=== PATIENT | male | born 1995 | race Caucasian/White ===

== ENCOUNTER 2019-08-19 15:56 | Emergency (ER) | payer SELFPAY ==
--- NOTE | 2019-08-19 16:00 | XR_ITS ---
WS: [id number] XR foot RT min 3V* [id number] REASON FOR EXAM: injury FINDINGS: This study shows a fracture of the proximal second metatarsal. Slight displacement is seen. The calcaneus was normal. The remaining foot appear to be normal. XR/XR foot RT min 3V* [id number] IMPRESSION: Fracture of the proximal second metatarsal
[2019-08-19 16:13] VITALS: BP 142/82; PULSE 79; RESP 18; TEMP 36.7; O2SAT 98; BMI 27.8
--- NOTE | 2019-08-19 16:39 | ED_ITS ---
HPI - Extremity Problem General: Chief complaint: Extremity Injury, Lower Stated complaint: R FOOT INJURY Time Seen by Provider: 08/19/19 16:38 Source: patient Mode of arrival: ambulatory Limitations: no limitations History of Present Illness: HPI Narrative: Patient comes in today with complaints of soreness and swelling to the right foot. Patient does not recall an injury. Patient reports that it has been bothering him for the last 2 days. Patient appears well. Patient appears in no acute distress. MD Complaint: extremity pain Review of Systems General: Reports: 10 or more systems reviewed and unremarkable except in HPI and below Musc: Reports: extremity pain (right foot) [facility] ED PFSH: Social History Smoking and tobacco status: never smoked Physical Exam Const: COMMON NORMALS: no acute distress and patient oriented x3 GENERAL APPEARANCE: cooperative HENMT: COMMON NORMALS: normocephalic, TM's normal bilaterally and Normal external nose present HEAD & SCALP: normal to inspection and normocephalic NOSE: Normal external nose present TYMPANIC MEMBRANE: TM's normal bilaterally MOUTH: Normal oral and palatal mucosa present THROAT: posterior oropharynx normal Eye: GENERAL EYE: appearance normal, both eyes and all related structures Neck/C-Spine: COMMON NORMALS: full ROM Lymph: LYMPHATIC: no lymphadenopathy noted Chest: COMMONS NORMALS: normal inspection of the chest Resp: COMMON NORMALS: normal respiratory effort EFFORT & INSPECTION: Yes able to speak in complete sentences Cardio: COMMON NORMALS: regular rate and regular rhythm RATE: regular rate RHYTHM: regular rhythm GI: COMMON NORMALS: non-tender : COMMON NORMALS: Yes no CVA tenderness BLADDER/KIDNEY EXAM: Yes no CVA tenderness Back/Pelvis: COMMON NORMALS: no CVA tenderness and thoracic and lumbar spine normal to inspection Extremity: NARRATIVE EXTREMITY EXAM: No significant swelling or bruising is noted to the right foot. Patient does have some tenderness to the midfoot. Distal pulses and cap refill are intact. Neuro: COMMON NORMALS: patient oriented x3 and moves all extremities Psych: COMMON NORMALS: mental status grossly normal and cooperative Skin: COMMON NORMALS: no rashes or lesions noted GENERAL SKIN EXAM: no rash es or lesions noted Course Vital Signs: Vital signs: Vital Signs Temperature 98.1 F 08/19/19 16:13 Pulse Rate 79 08/19/19 16:44 Respiratory Rate 16 08/19/19 16:44 Blood Pressure 139/78 08/19/19 16:44 Pulse Oximetry 98 08/19/19 16:44 MDM - Extremity (Nontraumatic) MDM Narrative: Medical decision making narrative: Patient comes in with injury to the mid right foot. Patient does not recall the injury but noticed over the last 2 days that it seems like is been more tender and increased swelling is noted to the foot. Vital signs are normal. Exam notes mild swelling and tenderness to the mid right foot. Capillary refill is normal. Differential diagnosis includes sprain, fracture, contusion. X-ray of the right foot noted a nondisplaced fracture of the base of the second metatarsal. Reviewed exam with patient recommended treatment with elastic bandage and orthopedic shoe for support. Patient reported understanding and agreed to plan. Discharge Plan Discharge Patient Disposition: Home, Self-Care Clinical Impression: Fracture of metatarsal bone of right foot Qualifiers: Encounter type: initial encounter Metatarsal bone: second Fracture type: closed Fracture alignment: nondisplaced Qualified Code(s): S92.324A - Nondisplaced fracture of second metatarsal bone, right foot, initial encounter for closed fracture Condition: Stable Prescriptions: No Action No Known Home Medications RF: 0 Discharge Orders: Discharge Order (Routine); Ordered 08/19/19 Ordered By: Duane Ramirez Referrals: Jennifer Mcgovern FNP-C [Family Provider] - Discharge Diet: Usual diet Discharge Activity: Increase activity as tolerated Patient Instructions: Foot Fracture in Adults (ED) Activity Restrictions/Additional Instructions: Activity as tolerated. Tylenol and ibuprofen for pain. Wear elastic support for swelling of the foot. Wear supportive shoe or orthopedic shoe until cleared by orthopedic surgeon. Follow-up with primary care in 1 week. Return to the ER for increased swelling, redness, and high fever. Coding Level of Care Code ED Elementary Substitute Teacher for Ayesha Fwd Exam Comprehensive
[2019-08-19 16:44] VITALS: BP 139/78; PULSE 79; RESP 16; O2SAT 98
--- NOTE | 2019-08-20 10:46 | DCPLANNER ---
manager target had message to schedule a follow up appointment for patient with ortho. manager target called the ortho clinic, spoke with Concepción, gave clinic patients information. manager target was told that patients information would be printed and reviewed. Clinic will call manager of case and patient with appointment information.
--- NOTE | 2019-09-01 07:58 | DCPLANNER ---
Patient had a follow up appointment scheduled for 08.23.19 with ortho. Patient did attend the appointment.
== END 2019-08-19 17:00 | disposition home or self-care (01) ==
PROVIDERS: Emergency Provider Nurse Practitioner Family; Family Provider Nurse Practitioner Family
DX: S92.324A Nondisplaced fracture of second metatarsal bone, right foot, initial encounter for closed fracture (principal); X58.XXXA Exposure to other specified factors, initial encounter
CPT/HCPCS: 12345; 73630; 99282; 99283

== ENCOUNTER → 2019-08-23 13:38 | Outpatient (BNVA) | payer SELFPAY | PROVIDERS: Family Provider Nurse Practitioner Family; Referring Provider Nurse Practitioner Family; Visit Provider Podiatrist Foot & Ankle Surgery | DX: S92.324A Nondisplaced fracture of second metatarsal bone, right foot, initial encounter for closed fracture (principal); X58.XXXA Exposure to other specified factors, initial encounter | CPT/HCPCS: 73630 ==

== ENCOUNTER 2019-12-17 20:59 | Inpatient (IN) | payer SELFPAY ==
[2019-12-17 21:12] VITALS: RESP 18; TEMP 36.3; BMI 27.8
[2019-12-17 21:20] VITALS: BP 151/107; PULSE 124; RESP 16; TEMP 36.3; O2SAT 98
--- NOTE | 2019-12-17 21:27 | W.ED.PSYCH ---
HPI - Psych General: Chief Complaint: Psychiatric Symptoms Stated Complaint: mental eval Time Seen by Provider: 12/17/19 21:17 Source: patient Mode of arrival: ambulatory Limitations: no limitations History of Present Illness: HPI Narrative: 24-year-old male he states that he has been having increasing auditory hallucinations since November. Patient states that he is now became suicidal has had thoughts of killing himself. Patient's mother is here and states she is try to get him follow-up with [facility] but he refuses. Patient denies any worsening or improving factors. Associated symptoms: Reports auditory hallucinations and suicidal ideation Review of Systems Const: Denies: fever(s), chills, body aches or change in appetite Eyes: Denies: blurry vision or eye discomfort ENMT: Denies: throat pain or dental pain Card: Denies: chest pain Resp: Denies: dyspnea GI: Denies: abdominal pain, nausea, vomiting or diarrhea : Denies: dysuria Musc: Denies: neck pain or back pain Skin/Breast: Denies: rash Neuro: Denies: headache(s) Psych: Reports: auditory hallucinations and suicidal ideation Grady/Lymph: Denies: easy bruising All/Imm: Denies: urticaria PFSH ED PFSH: Family History Denies family history of Diabetes CAD (coronary artery disease) Hypertension Stroke Social History Smoking and tobacco status: never smoked Alcohol intake: never Current occupational status: employed Current occupation: [employer] Current gender identity: Male Physical Exam Const: COMMON NORMALS: no acute distress, patient oriented x3 and healthy appearing HENMT: COMMON NORMALS: normocephalic and atraumatic HEAD & SCALP: normocephalic and atraumatic Eye: COMMON NORMALS: Equal, round and reactive pupils present and EOMs intact bilaterally PUPIL: Yes Equal, round and reactive pupils present Neck/C-Spine: COMMON NORMALS: full ROM and supple Chest: COMMONS NORMALS: normal inspection of the chest and normal palpation of entire chest wall Resp: COMMON NORMALS: normal respiratory effort, No retractions, No use of accessory muscles and clear to auscultation bilaterally AUSCULTATION: clear to auscultation bilaterally Cardio: COMMON NORMALS: regular rate, regular rhythm and No murmurs present (Cardio) RATE: regular rate RHYTHM: regular rhythm GI: COMMON NORMALS: Normal to inspection, nondistended, normoactive bowel sounds present, Soft to palpation, non-tender and no masses PALPATION: Yes Soft to palpation Extremity: COMMON NORMALS: normal to inspection and full ROM Neuro: COMMON NORMALS: patient oriented x3, moves all extremities and no focal motor deficits Psych: COMMON NORMALS: mental status grossly normal and cooperative THOUGHT PROCESS: Loose association thought process present THOUGHT CONTENT: Yes Suicidality present and Yes Hallucination(s) present Skin: COMMON NORMALS: no rashes or lesions noted and no wounds GENERAL SKIN EXAM: no rashes or lesions noted MDM - Psych MDM Narrative: Medical decision making narrative: Patient presents here with ideations along with auditory hallucinations. Patient was placed under 96-hour hold by me. He is well-appearing here and blood work here is all normal. I spoke to Dr. Mcgovern and will admit to the psychiatric unit. Lab Data: Labs: Lab Results 12/17/19 12/17/19 Range/Units 21:50 22:25 WBC 8.8 (4.0-10.0) 10^3/ uL RBC 5.65 H (4.1-5.3) 10^6/u L Hgb 16.2 (11.7-16.6) g/dL Hct 48.6 (42.0-52.0) % MCV 86.0 (80-94) fL MCH 28.7 (28.0-34.0) pg MCHC 33.3 (30.0-36.0) g/dL RDW 12.4 (12.1-15.1) % Plt Count 236 (130-400) 10^3/c mm MPV 10.7 H (7.4-10.4) fL Neut % (Auto) 63.2 % Lymph % (Auto) 27.2 % Callaway % (Auto) 7.1 % Eos % (Auto) 1.9 % Baso % (Auto) 0.3 % Neut # (Auto) 5.55 (1.8-7.7) 10^3/u L Lymph # (Auto) 2.4 (0.8-4.8) 10^3/u L Callaway # (Auto) 0.6 (0.2-0.9) 10^3/u L Eos # (Auto) 0.2 (0.0-0.8) 10^3/u L Baso # (Auto) 0.0 (0.0-0.1) 10^3/u L Nucleated RBC % (a uto) 0 % Nucleated RBCs # 0.0 /100WBC Urine Opiates Scre en Negative (Negative) ng/mL Ur Barbiturates Sc reen Negative (Negative) ng/mL Ur Phencyclidine S crn Negative (Negative) ng/mL Ur Amphetamines Sc reen Negative (Negative) ng/mL U Benzodiazepines Scrn Negative (Negative) ng/mL Urine Cocaine Scre en Negative (Negative) ng/mL U Marijuana (THC) Screen Positive H (Negative) ng/mL Discharge Plan Discharge Patient Disposition: Admitted As Inpatient Clinical Impression: Suicidal ideation, Hallucinations Condition: Stable Coding Level of Care Code ED Learning And Development Consultant for Ayesha Nj Exam Comprehensive
[2019-12-17] MEDS: LORazepam 2 mg Tablet PO (21:54)
[2019-12-17 22:11] LABS: Amphetamines Screen Urine Negative (Negative); Barbiturates Screen Urine Negative (Negative); Benzodiazepines Screen Urine Negative (Negative); Cocaine Screen Urine Negative (Negative); Opiate Screen Urine Negative (Negative); PCP Screen Urine Negative (Negative); THC Screen Urine Positive (Negative)
[2019-12-17 22:30] LABS: Basophils % 0.3 %; Eosinophils # 0.2 10^3/uL (0.0-0.8); Eosinophils % 1.9 %; Hematocrit 48.6 % (42.0-52.0); Hemoglobin 16.2 g/dL (11.7-16.6); Lymphocytes # 2.4 10^3/uL (0.8-4.8); Lymphocytes % 27.2 %; Mean Corpuscular HGB Conc 33.3 g/dL (30.0-36.0); Mean Corpuscular Hemoglobin 28.7 pg (28.0-34.0); Mean Platelet Volume 10.7 fL (7.4-10.4); Monocytes # 0.6 10^3/uL (0.2-0.9); Monocytes % 7.1 %; Neutrophils # 5.55 10^3/uL (1.8-7.7); Neutrophils % 63.2 %; Nucleated Red Blood Cells % 0 %; Platelet Count 236 10^3/cmm (130-400); Red Blood Count 5.65 10^6/uL (4.1-5.3); Red Cell Distribution Width 12.4 % (12.1-15.1); White Blood Count 8.8 10^3/uL (4.0-10.0)
[2019-12-17 22:50] LABS: Alanine Aminotransferase 11 U/L (0-41); Albumin Level 4.9 g/dL (3.5-5.2); Alkaline Phosphatase 56 IU/L (40-130); Anion Gap 15.7 (5-19); Aspartate Amino Transferase 18 U/L (0-40); Blood Urea Nitrogen 7 mg/dL (6-20); Calcium 9.7 mg/dL (8.5-10.5); Carbon Dioxide 27 mmol/L (22-29); Chloride 99 mmol/L (98-107); Globulin 2.6 g/dL (1.3-4.6); Glomerular Filtration Rate 103.7 mL/min (90-130); Glucose 129 mg/dL (65-115); Osmolality Calculated 286 mOsm/kg (285-295); Potassium 3.7 mmol/L (3.5-5.1); Sodium 138 mmol/L (136-145); Total Bilirubin 0.7 mg/dL (0.15-1.2); Total Protein 7.5 g/dL (6.6-8.7)
[2019-12-17 22:55] LABS: Acetaminophen < 5.0 ug/mL (10-30); Alcohol Level < 10 mg/dL (0-10); Salicylate < 0.3 mg/dL (3-10)
--- NOTE | 2019-12-17 23:09 | PC.NURSE ---
pt report called to NPU RN in SBAR format.
[2019-12-17 23:31] VITALS: PULSE 92; RESP 18; O2SAT 98
--- NOTE | 2019-12-18 01:10 | PC.NURSE ---
Addendum entered by Ruperto Tucker RN 12/18/19 01:12: no totery available at this time. Original Note: 96 hour hold will need notarized tomorrow 12/18/19.
--- NOTE | 2019-12-18 04:32 | PC.NURSE ---
Patient came to the unit calm and cooperative. He is sleeping in his room
[2019-12-18 06:00] VITALS: BP 116/76; PULSE 76; RESP 16; TEMP 36.6; O2SAT 99
--- NOTE | 2019-12-18 09:06 | PM.NHP ---
Providers/Chief Complaint Admitting Physician: Davin Mcgovern MD Chief Complaint: mental eval [facility] NPU History of Present Illness Ivan Dover is a 24 year old male Ivan Dover is a 24-year-old male with no prior psychiatric history who was brought to the emergency room with the complaint described above. He says that he occasionally has suicidal thoughts. However he has no intent or plan. He does not seem to be particularly depressed. He spends his days playing his guitar and writing music. He feels that he is pretty good at playing guitar and writing music and sometimes will even play his guitar for a friend. He denies being depressed. However he does report the presence of auditory hallucinations. He hears more than 1 voice. There is no command nature to the hallucinations. He cannot identify any voices. He cannot tell whether they are coming from inside of his head or outside of his head. He does not find them typically troubling and is not too concerned about them. On interview today, he is not too concerned about much of anything. He admits that he smokes marijuana and that it helps relax him. He is guarded around how much he smokes. He claims to not really smoke very much. He says that he last went a whole day without smoking a few days ago. Other than getting rid of the auditory hallucinations, he has no other goals. Appetite and sleep are good by his report Laboratory Tests 12/17/19 12/17/19 21:50 22:25 Urine Opiates Screen Negative Ur Barbiturates Screen Negative Ur Phencyclidine Scrn Negative Ur Amphetamines Screen Negative U Benzodiazepines Scrn Negative Urine Cocaine Screen Negative U Marijuana (THC) Screen Positive H Ethyl Alcohol < 10 Past psychiatric history: He has no history of inpatient psychiatric treatment, outpatient psychiatric treatment. He did see a counselor for a while but does not really want to talk about that. Family psychiatric history: Patient states that there is nobody else in the family that has been treated for mental health problems. Nobody in the family has experienced auditory hallucinations. Nobody else in the family has an alcohol or substance abuse problem. Social history: The patient currently lives with his mother. His mother is employed full-time. The patient is unemployed. The patient has no intention of finding employment. I am not really very good at that kind of thing. He is a high school graduate. He was attending the local college and planning on a career in game design. He stopped attending school 4 years ago. He has no plans to return. He says that he has friends locally but does not name any of them. He describes no activities in which he engages with those friends. He has 2 brothers and a sister. He says he does not see them much. Medical history Records indicate that he is in good medical health. He is on no medications. Laboratory evaluation show that he has a mild elevation in RBC and his nonfasting blood sugar was 129. His urine drug screen was positive for marijuana. Otherwise the UDS was negative. Review of Systems Narrative: Review of Systems Constitutional: Complains of: Fatigue Eyes: Complains of: No eye symptoms ENT/Mouth: Complains of: No ENTM symptoms Cardiovascular: Complains of: No cardiac symptoms Respiratory: Complains of: No respiratory symptoms GI: Complains of: No GI symptoms Neuro: Complains of: No neuro symptoms Musculoskeletal: Complains of: No musculoskeletal symptoms Skin: Complains of: No skin symptoms Hematologic/Lymphatic: Complains of: No hematologic/lymphatic symptoms Endocrine: Complains of: No endocrine symptoms : Complains of: No symptoms Psych: He denied complaints of: Depression, Suicide ideation Meds NPU Home Medications Medication Instructions Recorded Confirmed Last Taken Type No Known Home Medications 08/19/19 12/17/19 Unknown History Allergies Allergy/AdvReac Type Severity Reaction Status Date / Time No Known Allergies Allergy Verified 12/17/19 21:25 PFSH NPU PFSH: Family History Denies family history of Diabetes CAD (coronary artery disease) Hypertension Stroke Social History Smoking and tobacco status: never smoked Alcohol intake: never Current occupational status: employed Current occupation: [employer] Current gender identity: Male Mental Status Exam MSE Comments: Mental Status Exam: The patient is a lethargic man appearing approximately his stated age. He sits in a slumped posture. Eye contact is good. Speech is so soft as to barely be able to be heard. He is in no apparent physical or emotional distress. He is believed to be a reliable informant though he does show some guarding around discussion of his use of marijuana. Still, he does not provide supplemental information to any of the questions asked. He simply answers them. Appearance: hygiene is fair; no gross neurological deficits., gait is unremarkable; AIMS=0 Speech: Speech is of normal rate and rhythm and easily understood. Thought processes: Thought processes are concrete. Judgment is adequate for safety. Associations: intact Psychotic processes: There is no indication of guarding or paranoia. There is no attention to the internal stimuli. Auditory are reported historically but patient describes them as being absent during the interview and visual hallucinations are denied. Judgment: Insight is fair. Problem solving skills are adequate for safety. Orientation: The patient is oriented to person, place time and situation. Memory: no deficits noted in immediate, intermediate, or remote spheres. Attention: The patient is alert and interpersonally engaged. Language: Verbalizations are coherent. Fund of knowledge: Fund of knowledge is adequate. Affect/Mood: Affect is lethargic with a euthymic mood. pt denies suicidal ideation Affective range is constricted. Psychosis: perception is difficult to assess as the patient does not provide much information and his motivation to participate in the interview seems to be low. There is no attention to internal stimuli though he reports auditory hallucinations. He denied the presence of visual hallucinations. He does not appear to be significantly bothered by these auditory hallucinations and his reality testing appears to remain intact. He is able to acknowledge that these are hallucinations that they are not real. Vitals/I&O/Wt Last Vital Signs Temp 97.8 F 12/18/19 06:00 Pulse 76 12/18/19 06:00 Resp 16 12/18/19 06:00 BP 116/76 12/18/19 06:00 Pulse Ox 99 12/18/19 06:00 Weight last 48 hrs Weight 90.718 kg Data NPU : 12/17/19 22:25 12/17/19 22:25 A&P Assessment and plan (1) Marijuana abuse: Status: Acute (2) Hallucinations: Status: Acute Additional A&P Information Assessment: Ivan Dover is a 24-year-old man who appears to smoke marijuana on a regular basis and is experiencing auditory hallucinations. There is no family history of psychosis and no familial risk factors for the development of schizophrenia.. He is medically stable. His reality testing remains intact. He is guarded with regard to the amount and frequency of marijuana use. 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 The patient did not seem to be interested in ceasing his marijuana use. Due to the psychiatric conditions and treatment listed in the Assessment and Plan - the patient requires continued hospitalization. Will provide a safe and therapeutic environment for patient.. Will continue inpatient treatment to allow for medication adjustment and monitoring. Will continue q15 min safety checks. 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 The patient did not seem to be interested in ceasing his marijuana use. The first intervention will be the initiation of risperidone 0.5 mg daily as an intervention to try and reduce and eliminate the presence of the auditory hallucination and absence of his willingness to cease marijuana use. Monitor patient's mood, sleep, appetite, and behavior closely. Encourage patient to participate in individual and group therapeutic sessions on the tim. Estimated length of stay 3 days The expected benefits and potential side effects of patient's psychiatric medications were discussed with the patient. The patient understands and consents to treatment. CRITERIA FOR DISCHARGE: stable on medications and no longer an imminent threat to self or others Involuntary Hold Information 96 Hour Hold: 96 Hour Involuntary Admission: Yes Attestations NPU Medical Necessity Statement*: Patient will remain in the hospital 2 to 3 days to assess medication efficacy and tolerance. Coding Level of Care Code Acute Office Runner for Ayesha Nj Diagnoses Marijuana abuse F12.10 Hallucinations R44.3
[2019-12-18 13:42] VITALS: BP 134/79; PULSE 92; RESP 18; TEMP 36.8
[2019-12-18 22:00] VITALS: BP 142/86; PULSE 86; RESP 16; TEMP 36.7; O2SAT 99
[2019-12-19 06:00] VITALS: BP 117/71; PULSE 70; RESP 16; TEMP 36.8; O2SAT 99
[2019-12-19 13:10] VITALS: BP 114/72; PULSE 90; RESP 16; TEMP 36.9; O2SAT 98
--- NOTE | 2019-12-19 17:12 | P.PN_ITS ---
Subjective NPU Subjective: Interval history: The patient is rather nonchalant today. He frankly acknowledges suicidal ideation for a very long time. He says he has attempted to hang himself several times and has cut on himself. I have spoken to his mother, who is very supportive. She has her own chronic illness and her mother is said to be a schizophrenic. The patient's problems seems to have become exacerbated when his girlfriend left him. Medications: Reviewed: Yes Medication Review Details: Current Medications Acetaminophen (Tylenol) 650 mg PO Q4H PRN PRN Reason: MILD PAIN Benztropine Mesylate (Cogentin) 1 mg PO BID PRN PRN Reason: Mild Extrapyramidal symptoms Camphor/Menthol/Phenol (Blistex) 1 applic TOPICAL Q1H PRN PRN Reason: DRYNESS Diphenhydramine HCl (Benadryl) 50 mg IM ONCE PRN PRN Reason: Severe Extrapyramidal Symptoms Diphenhydramine HCl (Benadryl) 50 mg IM Q4H PRN PRN Reason: Severe Aggression Haloperidol (Haldol) 5 mg PO Q4H PRN PRN Reason: AGITATION Haloperidol Lactate (Haldol Inj) 5 mg IM Q4H PRN PRN Reason: Severe Aggression Hydroxyzine Pamoate (Vistaril) 50 mg PO Q6H PRN PRN Reason: ANXIETY Loperamide HCl (Imodium Capsule) 2 mg PO Q6H PRN PRN Reason: DIARRHEA Lorazepam (Ativan) 2 mg IM Q4H PRN PRN Reason: Severe Aggression Nicotine (Nicoderm 21 Mg Patch) 1 patch TRANSDERMA DAILY PRN PRN Reason: NICOTINE WITHDRAWAL Nicotine Polacrilex (Nicorette) 2 mg BUCCAL Q2H PRN PRN Reason: NICOTINE WITHDRAWAL Olanzapine (Zyprexa Zydis) 5 mg PO Q4H PRN PRN Reason: Agitation/Psychosis Ondansetron HCl (Zofran) 4 mg PO Q6H PRN PRN Reason: NAUSEA AND VOMITING Risperidone (Risperdal) 2 mg PO DAILY KATI Trazodone HCl (Desyrel) 50 mg PO BEDTIME PRN PRN Reason: SLEEP Mental Status Exam MSE Comments: This is a 24-year-old male who presents at his stated age. He is clean, neat and has brassy dyed hair. Mood is sad and affect is quite flat. Thought processes are integrated and free of any racing, blocking or looseness of association. Speech is very soft and I have to ask him to repeat himself. Nonetheless there is no dysarthria, aprosody or pressure. There is only one indication of psychosis, namely his auditory hallucinations. He's pretty cagey about who they are or what they say. He acknowledges suicidal ideation: I've always been suicidal, he states. Cognitive functions appear to be intact but insight and judgment may be fragile indeed. Vitals/I&O/Wt Last Vital Signs Temp 98.4 F 12/19/19 13:10 Pulse 90 12/19/19 13:10 Resp 16 12/19/19 13:10 BP 114/72 12/19/19 13:10 Pulse Ox 98 12/19/19 13:10 Weight last 48 hrs Weight 199 lb 2 oz Weight 200 lb Data NPU : 12/17/19 22:25 12/17/19 22:25 A&P Assessment and plan (1) Marijuana abuse: This patient needs referral to recovery program as well as Behavioral Health Care Status: Chronic (2) Suicidal ideation: This is of years duration. A lot of support will be required and his depression should be treated. I'll discuss this with the patient tomorrow Status: Chronic (3) Major depressive disorder with psychotic features: Pharmacotherapy and milieu will be involved with aftercare at [facility]. Status: Acute Involuntary Hold Information 96 Hour Hold: 96 Hour Involuntary Admission: Yes Attestations NPU Medical Necessity Statement*: I anticipate 7-10 midnights additional hospitalization. Time Spent in Patient Care: Greater than 35 minutes (>than 50% of time spent in counselling and/or direct pt care on unit) . 50 minutes including consultation with the patient's mother, with his permission. Coding Level of Care Code Acute Leak Gang Supervisor for Ayesha Fwlee ann Diagnoses Marijuana abuse F12.10 Suicidal ideation R45.851 Major depressive disorder with psychotic features F32.3
[2019-12-19] MEDS: trazodone 50 mg Tablet PO (20:59)
[2019-12-19] MEDS: hyDROXYzine 25 mg Capsule 50 MG PO (20:59)
[2019-12-19 21:16] VITALS: BP 148/94; PULSE 96; RESP 16; TEMP 36.6; O2SAT 98
[2019-12-20 06:00] VITALS: BP 98/62; PULSE 63; RESP 16; TEMP 36.4; O2SAT 96
[2019-12-20] MEDS: risperiDONE 1 mg Tablet 2 MG PO (08:10)
--- NOTE | 2019-12-20 13:35 | NPU.GN ---
Neither Ward or Ivan were present during the group therapy session.
[2019-12-20 14:00] VITALS: BP 112/74; PULSE 77; RESP 18; TEMP 36.7; O2SAT 98
--- NOTE | 2019-12-20 16:12 | PM.NPN ---
Subjective NPU Subjective: Interval history: The patient says he feels better than he did coming in the door. I asked what improvements he had experienced. Is not a good thing to hang yourself, he replied. As I observe him today he does seem brighter. He is even able to joke and laugh about sorrow, which is in fact a weighty matter. He is moving in the right direction. Medications: Reviewed: Yes Medication Review Details: Current Medications Acetaminophen (Tylenol) 650 mg PO Q4H PRN PRN Reason: MILD PAIN Benztropine Mesylate (Cogentin) 1 mg PO BID PRN PRN Reason: Mild Extrapyramidal symptoms Camphor/Menthol/Phenol (Blistex) 1 applic TOPICAL Q1H PRN PRN Reason: DRYNESS Diphenhydramine HCl (Benadryl) 50 mg IM ONCE PRN PRN Reason: Severe Extrapyramidal Symptoms Diphenhydramine HCl (Benadryl) 50 mg IM Q4H PRN PRN Reason: Severe Aggression Haloperidol (Haldol) 5 mg PO Q4H PRN PRN Reason: AGITATION Haloperidol Lactate (Haldol Inj) 5 mg IM Q4H PRN PRN Reason: Severe Aggression Hydroxyzine Pamoate (Vistaril) 50 mg PO Q6H PRN PRN Reason: ANXIETY Last Admin: 12/19/19 20:59 Dose: 50 mg Documented by: Loperamide HCl (Imodium Capsule) 2 mg PO Q6H PRN PRN Reason: DIARRHEA Lorazepam (Ativan) 2 mg IM Q4H PRN PRN Reason: Severe Aggression Nicotine (Nicoderm 21 Mg Patch) 1 patch TRANSDERMA DAILY PRN PRN Reason: NICOTINE WITHDRAWAL Nicotine Polacrilex (Nicorette) 2 mg BUCCAL Q2H PRN PRN Reason: NICOTINE WITHDRAWAL Olanzapine (Zyprexa Zydis) 5 mg PO Q4H PRN PRN Reason: Agitation/Psychosis Ondansetron HCl (Zofran) 4 mg PO Q6H PRN PRN Reason: NAUSEA AND VOMITING Risperidone (Risperdal) 2 mg PO DAILY KATI Last Admin: 12/20/19 08:10 Dose: 2 mg Documented by: Trazodone HCl (Desyrel) 50 mg PO BEDTIME PRN PRN Reason: SLEEP Last Admin: 12/19/19 20:59 Dose: 50 mg Documented by: Mental Status Exam MSE Comments: This 24-year-old male presents at his stated age. Mood is immensely brighter and affect is appropriate. It was pretty numb yesterday. Thought processes are integrated and free of racing, blocking or looseness of association. There is no evidence of psychosis, such as but not limited to hallucinations, delusions or ideas of reference. He has no suicidal or homicidal ideation, plan or intent. Speech is of normal rate and volume, without dysarthria, aprosody or pressure. Cognitive functions are adequate for safety. Insight and judgment are growing. Vitals/I&O/Wt Last Vital Signs Temp 98.1 F 12/20/19 14:00 Pulse 77 12/20/19 14:00 Resp 18 12/20/19 14:00 BP 112/74 12/20/19 14:00 Pulse Ox 98 12/20/19 14:00 Weight last 48 hrs Weight 199 lb 2 oz Data NPU : 12/17/19 22:25 12/17/19 22:25 A&P Assessment and plan (1) Major depressive disorder with psychotic features: Continue pharmacotherapy, millieu and appropriate discharge planning. Status: Acute Involuntary Hold Information 96 Hour Hold: 96 Hour Involuntary Admission: Yes Attestations NPU Medical Necessity Statement*: I anticipate 3-5 additional midnights. Time Spent in Patient Care: Greater than 35 minutes (>than 50% of time spent in counselling and/or direct pt care on unit). Coding Level of Care Code Acute Technical Administrative Assistant for Ayesha Nj Diagnoses Major depressive disorder with psychotic features F32.3
[2019-12-20 19:47] VITALS: BP 107/70; PULSE 73; RESP 17; TEMP 36.6; O2SAT 99
[2019-12-21 06:00] VITALS: BP 128/88; PULSE 66; RESP 17; TEMP 36.6; O2SAT 99
[2019-12-21] MEDS: risperiDONE 1 mg Tablet 2 MG PO (08:08)
[2019-12-21 14:00] VITALS: BP 122/82; PULSE 98; RESP 18; TEMP 36.8; O2SAT 97
--- NOTE | 2019-12-21 16:03 | P.DS_ITS ---
Diagnoses at Discharge Discharge Diagnosis (1) Major depressive disorder with psychotic features: Status: Resolved Problem details: Patient appears very bright today. Reason for Visit Reason for Visit: [facility] Course Hospital Course Day #2 little progress has been made. I'm thinking more aggression with an antipsychotic is in order. I will increase the risperidone to 2 mg daily but will push for harder if necessary feeling that all switch it to Geodon or another atypical. An antidepressant is definitely in order. Day #3 the patient is much improved. The antipsychotic has turned out to be very useful. I am holding an anti-depressant in reserve. Day #4 the patient looks even better today. He says he is ready to return to the outpatient environment so that he can deal with the slings and arrows of outrageous fortune which await him. Involuntary Hold Information 96 Hour Hold: 96 Hour Involuntary Admission: Yes Mental Status Exam MSE Comments: This 24-year-old male presents at his stated age. Mood continues to improve and affect is appropriate. Thought processes are integrated and free of racing, blocking or looseness of association. There is no evidence of psychosis, such as but not limited to hallucinations, delusions or ideas of reference. He has no suicidal or homicidal ideation, plan or intent. Speech is of normal rate and volume, without dysarthria, aprosody or pressure. Cognitive functions are adequate for safety. Insight and judgment are adequate for safety. Discharge Data Vitals: Last Vital Signs Temp 98.2 F 12/21/19 14:00 Pulse 98 12/21/19 14:00 Resp 18 12/21/19 14:00 BP 122/82 12/21/19 14:00 Pulse Ox 97 12/21/19 14:00 Discharge Plan Discharge Patient Disposition: Home Condition: Stable Prescriptions: New risperidone 1 mg Tablet 2 mg PO DAILY 30 Days Qty: 60 RF: 1 Discharge Orders: Discharge Order (Routine); Ordered 12/21/19 Ordered By: Armando Roberts Referrals: [facility] [Outside] - 1-3 days (call to get psychiatric medication management and individual therapy appointment. It is important that you get follow-up after this hospitalization. ) Discharge Diet: Usual diet Discharge Activity: Resume usual activity Patient Instructions: Risperidone (By mouth) Discharge Attestations NPU Time Spent in Discharge Care*: greater than 30 min Specific Discharge Activities: Specific discharge activities: educating farideh ent, discussing with pcp/other providers, discussing with field case manager/social workers/dc planners, documenting/other paperwork and evaluating patient/reviewing data Other discharge activites (optional): Risk assessment Status at Discharge: Cognitive status at discharge: cognitively intact , Behavioral status at discharge: cooperative , Functional status at discharge: independent ambulation Overall status at discharge: patient is back to baseline Coding Level of Care Code Acute Binder And Wrapper Packer for [facility] Fwd Diagnoses Major depressive disorder with psychotic features F32.3
[2019-12-21 16:11] VITALS: BP 122/82; PULSE 98; RESP 18; TEMP 36.8; O2SAT 97
== END 2019-12-21 16:30 | disposition home or self-care (01) | DRG 885 ==
LOC: ER 22:09 → NP 23:00
PROVIDERS: Emergency Medicine; Admitting Provider Psychiatry & Neurology Psychiatry; Visit Provider Psychiatry & Neurology Psychiatry
DX: F32.3 Major depressive disorder, single episode, severe with psychotic features (principal); F12.10 Cannabis abuse, uncomplicated
CPT/HCPCS: 12345; 80053; 80306; 80307; 85025; 99284

== ENCOUNTER 2019-12-23 07:46 | Inpatient (IN) | payer SELFPAY ==
[2019-12-23] VITALS (8 sets, daily range): BP systolic 115–143; BP diastolic 64–85; PULSE 82–105; RESP 16–18; TEMP 36.6–36.9; O2SAT 96–100; BMI 26.4
--- NOTE | 2019-12-23 07:59 | ECG_ITS ---
[facility] Test Date: 2019-12-23 Pat Name: Ivan Dover Department: Room: Gender: Male Forensic Economist: : 1995 Requested By: Maricarmen Mir Order Number: [id number] Pascual MD: Nader Bey M.D. Measurements Intervals Taylor Rate: 95 P: 69 ID: [id number] QRS: 72 QRSD: 93 T: 42 QT: 356 QTc: 449 Interpretive Statements SINUS RHYTHM WITH SHORT ID INTERVAL NONSPECIFIC T-WAVE ABNORMALITY Compared to ECG 04/05/2014 12:22:03 Short ID interval now present T-wave abnormality now present Electronically Signed On 12-23-2019 21:42:06 CDT by Nader Bey M.D. [email or web address]
--- NOTE | 2019-12-23 08:01 | ED_ITS ---
Documented by User: ARCHANA Gonzalez 12/23/19 14:32 HPI - Psych General: Chief Complaint: Psychiatric Symptoms Stated Complaint: INTENTIONAL OVERDOSE Time Seen by Provider: 12/23/19 07:53 History of Present Illness: HPI Narrative: 24-year-old male patient presents to the emergency department via EMS. Patient was discharged from neuropsychiatric unit on 12/21/2019. He reports 1 hour prior to arrival, at approximately 630 to 7 AM, took 15 to 16 tablets of 2 mg Risperdal. Prescribed Risperdal from neuropsych, 12/17/2019. He reports chronic depression, stress. He denies life changing or stressful event that led to intentional overdose. He reports auditory hallucinations, states voices are telling him to kill himself. He reports voices have been present since November. He has battled depression since age 14 with previous self-harm of cutting himself. He lives with his mother. States his mother was aware of what occurred this morning and called 911 for assistance. Associated symptoms: Reports auditory hallucinations, depression and suicidal ideation; Deny visual hallucinations or homicidal ideation Review of Systems General: Reports: 10 or more systems reviewed and unremarkable except in HPI and below Const: Denies: fever(s), chills or diaphoresis Eyes: Denies: blurry vision or eye redness ENMT: Denies: throat pain, dental pain or disequilibrium Card: Denies: chest pain, palpitations or irregular heart rhythm Resp: Denies: dyspnea, productive cough, non-productive cough or wheezing GI: Denies: abdominal pain, nausea or vomiting : Denies: dysuria Musc: Denies: back pain Skin/Breast: Denies: rash or pruritus Neuro: Denies: headache(s), weakness in extremities or behavioral changes Psych: Reports: anxiety, depression, difficulty concentrating, auditory hallucinations and suicidal ideation; Denies: visual hallucinations or homicidal ideation Grady/Lymph: Denies: easy bruising PFSH ED PFSH: Family History Denies family history of Diabetes CAD (coronary artery disease) Hypertension Stroke Social History Smoking and tobacco status: never smoked Alcohol intake: never Current occupational status: employed Current occupation: [employer] Current gender identity: Male Physical Exam Const: COMMON NORMALS: no acute distress, patient oriented x3, healthy appearing and alert GENERAL APPEARANCE: cooperative, comfortable and well hydrated HENMT: COMMON NORMALS: normocephalic, Normal external nose present and moist oral mucous membranes HEAD & SCALP: normocephalic NOSE: Normal external nose present Eye: COMMON NORMALS: Equal, round and reactive pupils present and EOMs intact bilaterally GENERAL EYE: appearance normal, both eyes and all related structures PUPIL: Yes Equal, round and reactive pupils present Neck/C-Spine: COMMON NORMALS: full ROM and no lymphadenopathy GENERAL: Yes normal visual inspection and Yes trachea midline CERVICAL SPINE: Yes cervical ROM normal Lymph: LYMPHATIC: no lymphadenopathy noted Chest: COMMONS NORMALS: normal inspection of the chest Resp: COMMON NORMALS: normal respiratory effort and clear to auscultation bilaterally AUSCULTATION: clear to auscultation bilaterally Cardio: COMMON NORMALS: regular rhythm, S1 normal heart sound present and S2 normal heart sound present RHYTHM: regular rhythm HEART SOUNDS: S1 normal heart sound present and S2 normal heart sound present GI: COMMON NORMALS: Soft to palpation and non-tender INSPECTION: Yes normal to inspection PALPATION: Yes Soft to palpation : COMMON NORMALS: Yes no CVA tenderness BLADDER/KIDNEY EXAM: Yes no CVA tenderness Back/Pelvis: COMMON NORMALS: no CVA tenderness and thoracic and lumbar spine normal to inspection Extremity: COMMON NORMALS: normal to inspection and capillary refill normal Neuro: COMMON NORMALS: patient oriented x3 and no focal motor deficits SENSORIUM/ORIENTATION: Yes alert Psych: COMMON NORMALS: mental status grossly normal, Normal thought process present, cooperative, speech normal and activity/motor behavior normal APPEARANCE: Yes grossly normal ATTITUDE: Yes calm ACTIVITY/MOTOR BEHAVIOR: Yes appropriate eye contact SPEECH: Yes normal speech and Yes soft MOOD & AFFECT: Yes depressed mood and Yes Flat affect present THOUGHT PROCESS: Normal thought process present THOUGHT CONTENT: Yes Suicidality present and Yes Hallucination(s) present auditory ATTENTION/CONCENTRATION: Yes attention grossly intact MEMORY/COGNITION: Yes memory grossly intact INSIGHT: Fair insight present (Psych) JUDGEMENT: Fair judgement present (Psych) Skin: COMMON NORMALS: turgor normal GENERAL SKIN EXAM: turgor normal TRAUMA: other (Area of light-colored ecchymosis right superior clavicular area, nontender, he reports occurred with previous fall prior to previous admission.) MDM - Psych Lab Data: Labs: Lab Results 12/23/19 12/23/19 12/23/19 Range/Units 07:38 07:38 08:20 WBC 5.6 (4.0-10.0) 10^3/ uL RBC 5.51 H (4.1-5.3) 10^6/u L Hgb 15.8 (11.7-16.6) g/dL Hct 47.6 (42.0-52.0) % MCV 86.4 (80-94) fL MCH 28.7 (28.0-34.0) pg MCHC 33.2 (30.0-36.0) g/dL RDW 12.1 (12.1-15.1) % Plt Count 166 (130-400) 10^3/c mm MPV 10.9 H (7.4-10.4) fL Neut % (Auto) 46.7 % Lymph % (Auto) 42.4 % Barren % (Auto) 8.0 % Eos % (Auto) 2.1 % Baso % (Auto) 0.4 % Neut # (Auto) 2.62 (1.8-7.7) 10^3/u L Lymph # (Auto) 2.4 (0.8-4.8) 10^3/u L Barren # (Auto) 0.5 (0.2-0.9) 10^3/u L Eos # (Auto) 0.1 (0.0-0.8) 10^3/u L Baso # (Auto) 0.0 (0.0-0.1) 10^3/u L Nucleated RBC % (a uto) 0 % Nucleated RBCs # 0.0 /100WBC Sodium 141 (136-145) mmol/L Potassium 3.4 L (3.5-5.1) mmol/L Chloride 102 (98-107) mmol/L Carbon Dioxide 26 (22-29) mmol/L Anion Gap 16.4 (5-19) BUN 11 (6-20) mg/dL Creatinine 0.8 (0.7-1.2) mg/dL GFR Calculation 118.8 (90-130) mL/min Glucose 121 H (65-115) mg/dL Calculated Osmolal ity 293 (285-295) mOsm/k g Calcium 9.7 (8.5-10.5) mg/dL Total Bilirubin 0.6 (0.15-1.2) mg/dL AST 15 (0-40) U/L ALT 12 (0-41) U/L Alkaline Phosphata se 54 (40-130) IU/L Total Protein 7.5 (6.6-8.7) g/dL Albumin 4.8 (3.5-5.2) g/dL Globulin 2.7 (1.3-4.6) g/dL Urine Color Yellow (Yellow) Urine Appearance Clear (CLEAR) Urine pH 6.5 (5-7) Ur Specific Gravit y 1.015 (1.005-1.030) Urine Protein Neg (Negative) Urine Glucose (UA) Norm (Normal) Urine Ketones Negative (Negative) Urine Blood Neg (Negative) Urine Nitrate Negative (Negative) Urine Bilirubin Neg (Negative) Urine Urobilinogen Norm (Negative) mg/dL Ur Leukocyte Keri ase Negative (Negative) Salicylates < 0.3 L (3-10) mg/dL Urine Opiates Scre en (Negative) ng/mL Acetaminophen < 5.0 L (10-30) ug/mL Ur Barbiturates Sc reen (Negative) ng/mL Ur Phencyclidine S crn (Negative) ng/mL Ur Amphetamines Sc reen (Negative) ng/mL U Benzodiazepines Scrn (Negative) ng/mL Urine Cocaine Scre en (Negative) ng/mL U Marijuana (THC) Screen (Negative) ng/mL Ethyl Alcohol < 10 (0-10) mg/dL 12/23/19 Range/Units 08:20 WBC (4.0-10.0) 10^3/ uL RBC (4.1-5.3) 10^6/u L Hgb (11.7-16.6) g/dL Hct (42.0-52.0) % MCV (80-94) fL MCH (28.0-34.0) pg MCHC (30.0-36.0) g/dL RDW (12.1-15.1) % Plt Count (130-400) 10^3/c mm MPV (7.4-10.4) fL Neut % (Auto) % Lymph % (Auto) % Barren % (Auto) % Eos % (Auto) % Baso % (Auto) % Neut # (Auto) (1.8-7.7) 10^3/u L Lymph # (Auto) (0.8-4.8) 10^3/u L Barren # (Auto) (0.2-0.9) 10^3/u L Eos # (Auto) (0.0-0.8) 10^3/u L Baso # (Auto) (0.0-0.1) 10^3/u L Nucleated RBC % (a uto) % Nucleated RBCs # /100WBC Sodium (136-145) mmol/L Potassium (3.5-5.1) mmol/L Chloride (98-107) mmol/L Carbon Dioxide (22-29) mmol/L Anion Gap (5-19) BUN (6-20) mg/dL Creatinine (0.7-1.2) mg/dL GFR Calculation (90-130) mL/min Glucose (65-115) mg/dL Calculated Osmolal ity (285-295) mOsm/k g Calcium (8.5-10.5) mg/dL Total Bilirubin (0.15-1.2) mg/dL AST (0-40) U/L ALT (0-41) U/L Alkaline Phosphata se (40-130) IU/L Total Protein (6.6-8.7) g/dL Albumin (3.5-5.2) g/dL Globulin (1.3-4.6) g/dL Urine Color (Yellow) Urine Appearance (CLEAR) Urine pH (5-7) Ur Specific Gravit y (1.005-1.030) Urine Protein (Negative) Urine Glucose (UA) (Normal) Urine Ketones (Negative) Urine Blood (Negative) Urine Nitrate (Negative) Urine Bilirubin (Negative) Urine Urobilinogen (Negative) mg/dL Ur Leukocyte Keri ase (Negative) Salicylates (3-10) mg/dL Urine Opiates Scre en Negative (Negative) ng/mL Acetaminophen (10-30) ug/mL Ur Barbiturates Sc reen Negative (Negative) ng/mL Ur Phencyclidine S crn Negative (Negative) ng/mL Ur Amphetamines Sc reen Negative (Negative) ng/mL U Benzodiazepines Scrn Negative (Negative) ng/mL Urine Cocaine Scre en Negative (Negative) ng/mL U Marijuana (THC) Screen Positive H (Negative) ng/mL Ethyl Alcohol (0-10) mg/dL EKG Data^: EKG 1: EKG interpretation date: 12/23/19 EKG interpretation time: 08:14 Ischemic changes: other Other EKG comments: Sinus rhythm with short WA interval, nonspecific T wave abnormality, borderline ECG Discharge Plan Discharge Patient Disposition: Psych Hosp/Unit w Plan Readm Clinical Impression: Suicidal overdose Qualifiers: Encounter type: initial encounter Qualified Code(s): T50.902A - Poisoning by unspecified drugs, medicaments and biological substances, intentional self-harm, initial encounter Depressed Qualifiers: Depression Type: major depressive disorder Major depression recurrence: recurrent Active/Remission status: currently active Major depression episode severity: severe Psychotic features: without psychotic features Qualified Code(s): F33.2 - Major depressive disorder, recurrent severe without psychotic features Condition: Stable Discharge Date/Time: 12/23/19 11:50 Coding Level of Care Code ED Extrusion Machine Operator for Chg Fwd Exam Comprehensive Documented by User: Fran Gonzalez DO 12/23/19 10:38 HPI - Psych General: Chief Complaint: Psychiatric Symptoms Stated Complaint: INTENTIONAL OVERDOSE Time Seen by Provider: 12/23/19 07:53 PFSH ED PFSH: Family History Denies family history of Diabetes CAD (coronary artery disease) Hypertension Stroke Social History Smoking and tobacco status: never smoked Alcohol intake: never Current occupational status: employed Current occupation: [employer] Current gender identity: Male MDM - Psych MDM Narrative: Medical decision making narrative: Reviewed the patient with the midlevel. He is stable at this point we also reviewed poison control's recommendations he is passed peak toxicity and should be able to be monitored on the psychiatric floor we discussed Dr. Mcgovern he is willing to take the patient for suicidal ideation attempted overdose orders have been written. Patient stable to go to the medical center at this time Lab Data: Labs: Lab Results 12/23/19 12/23/19 12/23/19 Range/Units 07:38 07:38 08:20 WBC 5.6 (4.0-10.0) 10^3/ uL RBC 5.51 H (4.1-5.3) 10^6/u L Hgb 15.8 (11.7-16.6) g/dL Hct 47.6 (42.0-52.0) % MCV 86.4 (80-94) fL MCH 28.7 (28.0-34.0) pg MCHC 33.2 (30.0-36.0) g/dL RDW 12.1 (12.1-15.1) % Plt Count 166 (130-400) 10^3/c mm MPV 10.9 H (7.4-10.4) fL Neut % (Auto) 46.7 % Lymph % (Auto) 42.4 % Barren % (Auto) 8.0 % Eos % (Auto) 2.1 % Baso % (Auto) 0.4 % Neut # (Auto) 2.62 (1.8-7.7) 10^3/u L Lymph # (Auto) 2.4 (0.8-4.8) 10^3/u L Barren # (Auto) 0.5 (0.2-0.9) 10^3/u L Eos # (Auto) 0.1 (0.0-0.8) 10^3/u L Baso # (Auto) 0.0 (0.0-0.1) 10^3/u L Nucleated RBC % (a uto) 0 % Nucleated RBCs # 0.0 /100WBC Sodium 141 (136-145) mmol/L Potassium 3.4 L (3.5-5.1) mmol/L Chloride 102 (98-107) mmol/L Carbon Dioxide 26 (22-29) mmol/L Anion Gap 16.4 (5-19) BUN 11 (6-20) mg/dL Creatinine 0.8 (0.7-1.2) mg/dL GFR Calculation 118.8 (90-130) mL/min Glucose 121 H (65-115) mg/dL Calculated Osmolal ity 293 (285-295) mOsm/k g Calcium 9.7 (8.5-10.5) mg/dL Total Bilirubin 0.6 (0.15-1.2) mg/dL AST 15 (0-40) U/L ALT 12 (0-41) U/L Alkaline Phosphata se 54 (40-130) IU/L Total Protein 7.5 (6.6-8.7) g/dL Albumin 4.8 (3.5-5.2) g/dL Globulin 2.7 (1.3-4.6) g/dL Urine Color Yellow (Yellow) Urine Appearance Clear (CLEAR) Urine pH 6.5 (5-7) Ur Specific Gravit y 1.015 (1.005-1.030) Urine Protein Neg (Negative) Urine Glucose (UA) Norm (Normal) Urine Ketones Negative (Negative) Urine Blood Neg (Negative) Urine Nitrate Negative (Negative) Urine Bilirubin Neg (Negative) Urine Urobilinogen Norm (Negative) mg/dL Ur Leukocyte Keri ase Negative (Negative) Salicylates < 0.3 L (3-10) mg/dL Urine Opiates Scre en (Negative) ng/mL Acetaminophen < 5.0 L (10-30) ug/mL Ur Barbiturates Sc reen (Negative) ng/mL Ur Phencyclidine S crn (Negative) ng/mL Ur Amphetamines Sc reen (Negative) ng/mL U Benzodiazepines Scrn (Negative) ng/mL Urine Cocaine Scre en (Negative) ng/mL U Marijuana (THC) Screen (Negative) ng/mL Ethyl Alcohol < 10 (0-10) mg/dL 12/23/19 Range/Units 08:20 WBC (4.0-10.0) 10^3/ uL RBC (4.1-5.3) 10^6/u L Hgb (11.7-16.6) g/dL Hct (42.0-52.0) % MCV (80-94) fL MCH (28.0-34.0) pg MCHC (30.0-36.0) g/dL RDW (12.1-15.1) % Plt Count (130-400) 10^3/c mm MPV (7.4-10.4) fL Neut % (Auto) % Lymph % (Auto) % Barren % (Auto) % Eos % (Auto) % Baso % (Auto) % Neut # (Auto) (1.8-7.7) 10^3/u L Lymph # (Auto) (0.8-4.8) 10^3/u L Barren # (Auto) (0.2-0.9) 10^3/u L Eos # (Auto) (0.0-0.8) 10^3/u L Baso # (Auto) (0.0-0.1) 10^3/u L Nucleated RBC % (a uto) % Nucleated RBCs # /100WBC Sodium (136-145) mmol/L Potassium (3.5-5.1) mmol/L Chloride (98-107) mmol/L Carbon Dioxide (22-29) mmol/L Anion Gap (5-19) BUN (6-20) mg/dL Creatinine (0.7-1.2) mg/dL GFR Calculation (90-130) mL/min Glucose (65-115) mg/dL Calculated Osmolal ity (285-295) mOsm/k g Calcium (8.5-10.5) mg/dL Total Bilirubin (0.15-1.2) mg/dL AST (0-40) U/L ALT (0-41) U/L Alkaline Phosphata se (40-130) IU/L Total Protein (6.6-8.7) g/dL Albumin (3.5-5.2) g/dL Globulin (1.3-4.6) g/dL Urine Color (Yellow) Urine Appearance (CLEAR) Urine pH (5-7) Ur Specific Gravit y (1.005-1.030) Urine Protein (Negative) Urine Glucose (UA) (Normal) Urine Ketones (Negative) Urine Blood (Negative) Urine Nitrate (Negative) Urine Bilirubin (Negative) Urine Urobilinogen (Negative) mg/dL Ur Leukocyte Keri ase (Negative) Salicylates (3-10) mg/dL Urine Opiates Scre en Negative (Negative) ng/mL Acetaminophen (10-30) ug/mL Ur Barbiturates Sc reen Negative (Negative) ng/mL Ur Phencyclidine S crn Negative (Negative) ng/mL Ur Amphetamines Sc reen Negative (Negative) ng/mL U Benzodiazepines Scrn Negative (Negative) ng/mL Urine Cocaine Scre en Negative (Negative) ng/mL U Marijuana (THC) Screen Positive H (Negative) ng/mL Ethyl Alcohol (0-10) mg/dL Discharge Plan Discharge Patient Disposition: Psych Hosp/Unit w Plan Readm Clinical Impression: Suicidal overdose Qualifiers: Encounter type: initial encounter Qualified Code(s): T50.902A - Poisoning by unspecified drugs, medicaments and biological substances, intentional self-harm, initial encounter Depressed Qualifiers: Depression Type: major depressive disorder Major depression recurrence: recurrent Active/Remission status: currently active Major depression episode severity: severe Psychotic features: without psychotic features Qualified Code(s): F33.2 - Major depressive disorder, recurrent severe without psychotic features Condition: Stable Discharge Date/Time: 12/23/19 11:50 Coding Level of Care Code ED Extrusion Machine Operator for Ayesha Fwlee ann Exam Comprehensive
[2019-12-23 08:15] LABS: Basophils % 0.4 %; Eosinophils # 0.1 10^3/uL (0.0-0.8); Eosinophils % 2.1 %; Hematocrit 47.6 % (42.0-52.0); Hemoglobin 15.8 g/dL (11.7-16.6); Lymphocytes # 2.4 10^3/uL (0.8-4.8); Lymphocytes % 42.4 %; Mean Corpuscular HGB Conc 33.2 g/dL (30.0-36.0); Mean Corpuscular Hemoglobin 28.7 pg (28.0-34.0); Mean Corpuscular Volume 86.4 fL (80-94); Mean Platelet Volume 10.9 fL (7.4-10.4); Monocytes # 0.5 10^3/uL (0.2-0.9); Neutrophils # 2.62 10^3/uL (1.8-7.7); Neutrophils % 46.7 %; Nucleated Red Blood Cells % 0 %; Platelet Count 166 10^3/cmm (130-400); Red Blood Count 5.51 10^6/uL (4.1-5.3); Red Cell Distribution Width 12.1 % (12.1-15.1); White Blood Count 5.6 10^3/uL (4.0-10.0)
[2019-12-23 08:33] LABS: Alanine Aminotransferase 12 U/L (0-41); Albumin Level 4.8 g/dL (3.5-5.2); Alkaline Phosphatase 54 IU/L (40-130); Anion Gap 16.4 (5-19); Aspartate Amino Transferase 15 U/L (0-40); Blood Urea Nitrogen 11 mg/dL (6-20); Calcium 9.7 mg/dL (8.5-10.5); Carbon Dioxide 26 mmol/L (22-29); Chloride 102 mmol/L (98-107); Creatinine Clr Calc Pharmacy 160.4127; Globulin 2.7 g/dL (1.3-4.6); Glomerular Filtration Rate 118.8 mL/min (90-130); Glucose 121 mg/dL (65-115); Osmolality Calculated 293 mOsm/kg (285-295); Potassium 3.4 mmol/L (3.5-5.1); Sodium 141 mmol/L (136-145); Total Bilirubin 0.6 mg/dL (0.15-1.2); Total Protein 7.5 g/dL (6.6-8.7)
[2019-12-23 08:35] LABS: Acetaminophen < 5.0 ug/mL (10-30); Alcohol Level < 10 mg/dL (0-10); Salicylate < 0.3 mg/dL (3-10)
[2019-12-23 08:37] LABS: Add Urine Microscopic? NO
[2019-12-23 08:40] LABS: Bilirubin Urine Neg (Negative); Blood Urine Neg (Negative); Glucose Urine UA Norm (Normal); Ketones Urine Negative (Negative); Leukocyte Esterase Urine Negative (Negative); Nitrate Urine Negative (Negative); Protein Urine Neg (Negative); Specific Gravity, Urine 1.015 (1.005-1.030); Urine Appearance Clear (CLEAR); Urine Color Yellow (Yellow); Urobilinogen Urine Norm (Negative); pH Urine 6.5 (5-7)
[2019-12-23] MEDS: potassium chloride ER 10 mEq Tablet 20 MEQ PO (08:43)
[2019-12-23 08:52] LABS: Amphetamines Screen Urine Negative (Negative); Barbiturates Screen Urine Negative (Negative); Benzodiazepines Screen Urine Negative (Negative); Cocaine Screen Urine Negative (Negative); Opiate Screen Urine Negative (Negative); PCP Screen Urine Negative (Negative); THC Screen Urine Positive (Negative)
[2019-12-23] MEDS: acetaminophen 325 mg Tablet 650 MG PO (12:13)
[2019-12-23] MEDS: trazodone 50 mg Tablet PO (22:07)
[2019-12-23] MEDS: hyDROXYzine 25 mg Capsule 50 MG PO (22:07)
[2019-12-24 06:00] VITALS: BP 115/74; PULSE 93; RESP 16; TEMP 36.7; O2SAT 98
--- NOTE | 2019-12-24 08:00 | P.HP_ITS ---
Providers/Chief Complaint Admitting Physician: Davin Mcgovern MD Chief Complaint: INTENTIONAL OVERDOSE HPI NPU History of Present Illness Ivan Dover is a 24 year old male who presented to the emergency [facility] with the following report: Chief Complaint: Psychiatric Symptoms Stated Complaint: INTENTIONAL OVERDOSE Time Seen by Provider: 12/23/19 07:53 History of Present Illness: HPI Narrative: 24-year-old male patient presents to the emergency department via EMS. Patient was discharged from de uropsychiatric unit on 12/21/2019. He reports 1 hour prior to arrival, at approximately 630 to 7 AM, took 15 to 16 tablets of 2 mg Risperdal. Prescribed Risperdal from neuropsych, 12/17/2019. He reports chronic depression, stress. He denies life changing or stressful event that led to intentional overdose. He reports auditory hallucinations, states voices are telling him to kill himself. He reports voices have been present since November. He has battled depression since age 14 with previous self-harm of cutting himself. He lives with his mother. States his mother was aware of what occurred this morning and called 911 for assistance. Associated symptoms: Reports auditory hallucinations, depression and suicidal ideation; Deny visual hallucinations or homicidal ideation He was admitted to the neuropsychiatric unit for the definitive treatment of those issues. He presents today reporting that he went home with the greatest of intentions and things just did not work out. He endorsed the part of the situation is that the voices have become untenable. And even no depression has been noted he reports the real issue is the voices are becoming so unmanageable that he feels the suicidal thinking and does feel a little bit of a dip in his mood. He reports that the voices got really bad about a year to a year and a half ago but acknowledges that the voices were there even before and he had ways to ignore them. Is just that about a year and a half ago it became overwhelming. He denies any other trials of medication other than the Risperdal and he reports that the voices never really dissipated. We discussed the risks, benefits and alternatives of initiating Abilify 10 mg p.o. every morning and he understood and agreed to proceed as is documented in this note. We reviewed his previous inpatient evaluation from last week and he denies any substantive changes and so an excerpt of that note is included below. Per his [facility] inpatient eval 12/18/2019: History of Present Illness Ivan Dover is a 24 year old male Ivan Dover is a 24-year-old male with no prior psychiatric history who was brought to the emergency room with the complaint described above. He says that he occasionally has suicidal thoughts. However he has no intent or plan. He does not seem to be particularly depressed. He spends his days playing his guitar and writing music. He feels that he is pretty good at playing guitar and writing music and sometimes will even play his guitar for a friend. He denies being depressed. However he does report the presence of auditory hallucinations. He hears more than 1 voice. There is no command nature to the hallucinations. He cannot identify any voices. He cannot tell whether they are coming from inside of his head or outside of his head. He does not find them typically troubling and is not too concerned about them. On interview today, he is not too concerned about much of anything. He admits that he smokes marijuana and that it helps relax him. He is guarded around how much he smokes. He claims to not really smoke very much. He says that he last went a whole day without smoking a few days ago. Other than getting rid of the auditory hallucinations, he has no other goals. Appetite and sleep are good by his report Laboratory Tests 12/17/19 12/17/19 21:50 22:25 Urine Opiates Screen Negative Ur Barbiturates Screen Negative Ur Phencyclidine Scrn Negative Ur Amphetamines Screen Negative U Benzodiazepines Scrn Negative Urine Cocaine Screen Negative U Marijuana (THC) Screen Positive H Ethyl Alcohol < 10 Past psychiatric history: He has no history of inpatient psychiatric treatment, outpatient psychiatric treatment. He did see a counselor for a while but does not really want to talk about that. Family psychiatric history: Patient states that there is nobody else in the family that has been treated for mental health problems. Nobody in the family has experienced auditory hallucinations. Nobody else in the family has an alcohol or substance abuse problem. Social history: The patient currently lives with his mother. His mother is employed full-time. The patient is unemployed. The patient has no intention of finding employment. I am not really very good at that kind of thing. He is a high school graduate. He was attending the local college and planning on a career in game design. He stopped attending school 4 years ago. He has no plans to return. He says that he has friends locally but does not name any of them. He describes no activities in which he engages with those friends. He has 2 brothers and a sister. He says he does not see them much. Medical history Records indicate that he is in good medical health. He is on no medications. Laboratory evaluation show that he has a mild elevation in RBC and his nonfasting blood sugar was 129. His urine drug screen was positive for marijuana. Otherwise the UDS was negative. Meds NPU Home Medications Medication Instructions Recorded Confirmed Last Taken Type risperidone 2 mg PO DAILY 30 Days #60 tab 12/21/19 12/23/19 12/23/19 Rx Allergies Allergy/AdvReac Type Severity Reaction Status Date / Time No Known Allergies Allergy Verified 12/17/19 21:25 PFSH NPU PFSH: Family History Denies family history of Diabetes CAD (coronary artery disease) Hypertension Stroke Social History Smoking and tobacco status: never smoked Alcohol intake: never Current occupational status: employed Current occupation: [email or web address] Current gender identity: Male Mental Status Exam MSE Comments: This is a well-nourished well-developed white male with adequate dress, grooming and limited eye contact. No abnormal movements except for psychomotor retardation. Cooperative with exam and nondistressed. She was decreased rate and volume. Mood described as stressed out, affect congruent. Thought process organized. Thought content: Patient endorses current suicidal or homicidal ideation, he endorsed paranoia but no delusional content was noted, he endorses hearing voices but denies visual hallucinations. Attention and concentration were intact and memory appeared reliable but none were formally tested. He is alert and oriented x3. In addition a fair, impulse control is limited. Vitals/I&O/Wt Last Vital Signs Temp 98.1 F 12/24/19 06:00 Pulse 93 12/24/19 06:00 Resp 16 12/24/19 06:00 BP 115/74 12/24/19 06:00 Pulse Ox 98 12/24/19 06:00 Weight last 48 hrs Weight 86.183 kg Data NPU : 10/08/20 07:38 12/23/19 07:38 A&P Assessment and plan (1) Suicidal overdose: Status: Acute Qualifiers: Encounter type: initial encounter Qualified Code(s): T50.902A - Poisoning by unspecified drugs, medicaments and biological substances, intentional self-harm, initial encounter (2) Depressed: Status: Acute Qualifiers: Active/Remission status: currently active Depression Type: major depressive disorder Major depression episode severity: severe Major depression recurrence: recurrent Psychotic features: without psychotic features Qualified Code(s): F33.2 - Major depressive disorder, recurrent severe without psychotic features (3) Marijuana abuse: Status: Chronic (4) Right foot pain: Status: Acute (5) Schizophrenia: Status: Acute Additional A&P Information This is a 24-year-old white male with paranoia and psychosis via auditory hallucinations with history of cannabis use and recent overdose reportedly secondary to the voices being unmanageable who is open to a trial of Abilify. 1. Continue current medication. Except: Discontinue Risperdal and start Abilify 10 mg p.o. every morning. 2. Continue every 15 minute checks for safety. 3. Encourage individual, group and milieu therapy. 4. Need to work on cannabis abstinence. Encouraged follow-up with sober living treatments at the highest level of care to which she is willing to commit. Involuntary Hold Information 96 Hour Hold: 96 Hour Involuntary Admission: Yes 96 Hour Hold Ending Date: 12/29/19 96 Hour Hold Ending Time: 09:00 Attestations NPU Medical Necessity Statement*: Inpatient hospitalization is medically necessary and the clinically appropriate intervention at this time. We will monitor medications and make changes and adjustments as indicated. He will be in the hospital for over 2 midnights. Likely length of stay 4 to 6 days. Coding Level of Care Code Acute Commercial Carpenter for Ayesha [place] Diagnoses Suicidal overdose T50.902A Encounter type: initial encounter Depressed F33.2 Active/Remission status: currently active Depression Type: major depressive disorder Major depression episode severity: severe Major depression recurrence: recurrent Psychotic features: without psychotic features Marijuana abuse F12.10 Right foot pain M79.671 Schizophrenia F20.9
[2019-12-24 13:56] VITALS: BP 122/77; PULSE 92; RESP 18; TEMP 36.8; O2SAT 96
[2019-12-24] MEDS: trazodone 50 mg Tablet PO (21:03)
--- NOTE | 2019-12-24 21:04 | PC.NURSE ---
PRN TRAZODONE ADMINISTERED TRAZODONE 50 MG PO FOR PATIENT REQUESTING SLEEP AID.
[2019-12-24 22:00] VITALS: BP 132/78; PULSE 102; RESP 19; TEMP 36.8; O2SAT 97
[2019-12-25 06:00] VITALS: BP 129/82; PULSE 101; RESP 17; TEMP 36.6; O2SAT 98
[2019-12-25] MEDS: ARIPiprazole 10 mg Tablet PO (09:04)
--- NOTE | 2019-12-25 12:52 | P.PN_ITS ---
Subjective NPU Subjective: Interval history: Ivan presents today reporting that he is doing a little better on the medication. He reports he is feeling less anxious and his thoughts are stabilizing. He reports he is eating little better and eating fine. He denied any other concerns. Mental Status Exam MSE Comments: This is a well-nourished well-developed white male with adequate dress, grooming and limited eye contact. No abnormal movements except for psychomotor retardation. Cooperative with exam in mild distress. Speech was decreased rate and volume. Mood described as a little better, affect congruent. Thought process organized. Thought content: Patient endorses current suicidal or homicidal ideation, he endorsed paranoia but no delusional content was noted, he endorses hearing voices but denies visual hallucinations. Attention and concentration were intact and memory appeared reliable but none were formally tested. He is alert and oriented x3. Insight and judgment are fair, impulse control is limited. Vitals/I&O/Wt Last Vital Signs Temp 98.7 F 12/25/19 20:52 Pulse 88 12/25/19 20:52 Resp 17 12/25/19 20:52 BP 127/82 12/25/19 20:52 Pulse Ox 98 12/25/19 20:52 Data NPU : 12/23/19 07:38 12/23/19 07:38 A&P Additional A&P Information (1) Suicidal overdose: (2) Depressed: (3) Marijuana abuse: (4) Right foot pain: (5) Schizophrenia: This is a 24-year-old white male with paranoia and psychosis via auditory hallucinations with history of cannabis use and recent overdose reportedly secondary to the voices being unmanageable who is open to a trial of Abilify. 1. Continue current medication. 2. Continue every 15 minute checks for safety. 3. Encourage individual, group and milieu therapy. 4. Need to work on cannabis abstinence. Encouraged follow-up with sober living treatments at the highest level of care to which she is willing to commit. Involuntary Hold Information 96 Hour Hold: 96 Hour Involuntary Admission: Yes 96 Hour Hold Ending Date: 12/29/19 96 Hour Hold Ending Time: 09:00 Attestations NPU Medical Necessity Statement*: Inpatient hospitalization is medically necessary and the clinically appropriate intervention at this time. We will monitor medications and make changes and adjustments as indicated. Likely length of stay 3-5 days. Coding Level of Care Code Acute Metal Organ Pipe Maker for Ayesha N[place]
[2019-12-25 14:00] VITALS: BP 118/66; PULSE 88; RESP 16; TEMP 36.8; O2SAT 97
[2019-12-25] MEDS: hyDROXYzine 25 mg Capsule 50 MG PO (20:50)
[2019-12-25] MEDS: trazodone 50 mg Tablet PO (20:51)
[2019-12-25 20:52] VITALS: BP 127/82; PULSE 88; RESP 17; TEMP 37.1; O2SAT 98
[2019-12-26 06:00] VITALS: BP 124/82; PULSE 56; RESP 16; TEMP 36.5; O2SAT 97
[2019-12-26] MEDS: ARIPiprazole 10 mg Tablet PO (09:31)
--- NOTE | 2019-12-26 10:42 | P.PN_ITS ---
Subjective NPU Subjective: Interval history: Ivan presents today reporting that he feels better with the initiation of the Abilify. We discussed the possibility of increasing the dose possibly before he is discharged. He reports that he is having less negative thoughts and is feeling more optimistic that things might improve. He reports he is eating fine and sleeping fine at this point. Mental Status Exam MSE Comments: This is a well-nourished well-developed white male with adequate dress, grooming and limited eye contact. No abnormal movements except for psychomotor retardation. Cooperative with exam in less distress. Speech was decreased rate and volume. Mood described as a little better, affect congruent. Thought process organized. Thought content: Patient endorses current suicidal or homicidal ideation, he endorsed paranoia but no delusional content was noted, he endorses hearing voices but denies visual hallucinations. Attention and concentration were intact and memory appeared reliable but none were formally tested. He is alert and oriented x3. Insight and judgment are fair, impulse control is limited. Vitals/I&O/Wt Last Vital Signs Temp 98.9 F 12/26/19 19:53 Pulse 89 12/26/19 19:53 Resp 16 12/26/19 19:53 BP 128/82 12/26/19 19:53 Pulse Ox 97 12/26/19 19:53 Weight last 48 hrs Weight 89.811 kg Data NPU : 12/23/19 07:38 12/23/19 07:38 A&P Additional A&P Information (1) Suicidal overdose: (2) Depressed: (3) Marijuana abuse: (4) Right foot pain: (5) Schizophrenia: This is a 24-year-old white male with paranoia and psychosis via auditory hallucinations with history of cannabis use and recent overdose reportedly secondary to the voices being unmanageable who is open to a trial of Abilify. 1. Continue current medication. 2. Continue every 15 minute checks for safety. 3. Encourage individual, group and milieu therapy. 4. Need to work on cannabis abstinence. Encouraged follow-up with sober living treatments at the highest level of care to which she is willing to commit. Involuntary Hold Information 96 Hour Hold: 96 Hour Involuntary Admission: Yes 96 Hour Hold Ending Date: 12/29/19 96 Hour Hold Ending Time: 09:00 Attestations NPU Medical Necessity Statement*: Inpatient hospitalization is medically necessary and the clinically appropriate intervention at this time. We will monitor medications and make changes and adjustments as indicated. Likely length of stay 2-4 days. Coding Level of Care Code Acute Historian Research Assistant for Ayesha N[place]
[2019-12-26 14:00] VITALS: BP 126/89; PULSE 96; RESP 18; TEMP 36.9
[2019-12-26 19:53] VITALS: BP 128/82; PULSE 89; RESP 16; TEMP 37.2; O2SAT 97
[2019-12-26] MEDS: hyDROXYzine 25 mg Capsule 50 MG PO (20:28)
[2019-12-26] MEDS: trazodone 50 mg Tablet PO (20:28)
[2019-12-27 06:00] VITALS: BP 125/82; PULSE 78; RESP 16; TEMP 36.8; O2SAT 98
[2019-12-27] MEDS: ARIPiprazole 10 mg Tablet PO (08:18)
--- NOTE | 2019-12-27 13:26 | NPU.GN ---
Ivan did not participate in group. He and Dakota talked to each other throughout most of the session but Ivan was very quiet and not nearly as disruptive. He seemed to pay attention to the last half of the session but did not speak up today.
[2019-12-27 14:00] VITALS: BP 125/79; PULSE 89; RESP 18; TEMP 36.7; O2SAT 97
--- NOTE | 2019-12-27 16:18 | PM.NPN ---
Subjective NPU Subjective: Interval history: Ivan presents today reporting that he is feeling continued improvement. Started having some interest in his appearance requesting to shave. He endorsed feeling improvement and feeling less despair. Endorsed having some benefit from the milieu therapy and connecting with other people that share the same struggles. He reports he is eating okay and sleeping better. Mental Status Exam MSE Comments: This is a well-nourished well-developed white male with adequate dress, grooming and limited eye contact. No abnormal movements except for mild psychomotor retardation. Cooperative with exam in no acute distress. Speech was more normal rate and volume. Mood described as getting better, affect congruent. Thought process organized. Thought content: Patient denied current suicidal or homicidal ideation, he endorsed resolving paranoia but no delusional content was noted, he endorses diminishing voices but denies visual hallucinations. Attention and concentration were intact and memory appeared reliable but none were formally tested. He is alert and oriented x3. Insight and judgment are fair, impulse control is limited, but improving. Vitals/I&O/Wt Last Vital Signs Temp 97.9 F 12/27/19 19:56 Pulse 97 12/27/19 19:56 Resp 17 12/27/19 19:56 BP 142/89 12/27/19 19:56 Pulse Ox 98 12/27/19 19:56 Weight last 48 hrs Weight 89.811 kg Data NPU : 12/23/19 07:38 12/23/19 07:38 A&P Additional A&P Information (1) Suicidal overdose: (2) Depressed: (3) Marijuana abuse: (4) Right foot pain: (5) Schizophrenia: This is a 24-year-old white male with paranoia and psychosis via auditory hallucinations with history of cannabis use and recent overdose reportedly secondary to the voices being unmanageable who is open to a trial of Abilify. 1. Continue current medication. 2. Continue every 15 minute checks for safety. 3. Encourage individual, group and milieu therapy. 4. Encouraged follow-up with sober living treatments at the highest level of care to which she is willing to commit. Involuntary Hold Information 96 Hour Hold: 96 Hour Involuntary Admission: Yes 96 Hour Hold Ending Date: 12/29/19 96 Hour Hold Ending Time: 09:00 Attestations NPU Medical Necessity Statement*: Inpatient hospitalization is medically necessary and the clinically appropriate intervention at this time. We will monitor medications and make changes and adjustments as indicated. Likely length of stay 1-3 days. Coding Level of Care Code Acute Control Room Agent for Ayesha N[place]
[2019-12-27 19:56] VITALS: BP 142/89; PULSE 97; RESP 17; TEMP 36.6; O2SAT 98
[2019-12-27] MEDS: hyDROXYzine 25 mg Capsule 50 MG PO (20:12)
[2019-12-27] MEDS: trazodone 50 mg Tablet PO (20:13)
[2019-12-28 06:00] VITALS: BP 121/77; PULSE 71; RESP 16; TEMP 36.5; O2SAT 98
[2019-12-28] MEDS: ARIPiprazole 10 mg Tablet PO (08:21)
[2019-12-28 14:09] VITALS: BP 120/80; PULSE 88; RESP 18; TEMP 36.6; O2SAT 98
--- NOTE | 2019-12-28 15:38 | PM.NPN ---
Subjective NPU Subjective: Interval history: Ivan presents today reporting that things are going better each day. We had an opportunity to talk about his mom's concern about him almost transforming into a character for 1 of the videogames he participates in. 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 He reports he likes the character because the character has power and control in his life and he is kind of badass. He denied having any actual intent or interest in becoming this character only there are times where he sees himself as a person who kind of takes other people's crap and he wishes he could be more like that character. But he denied any unhealthy or stripping of this character. He reports he feels much better on this medication than the last medication and we discussed the risk benefits and alternatives of a possible discharge tomorrow. Mental Status Exam MSE Comments: This is a well-nourished well-developed white male with adequate dress, grooming and limited eye contact. No abnormal movements except for mild psychomotor retardation. Cooperative with exam in no acute distress. Speech was more normal rate and volume. Mood described as better, affect congruent. Thought process organized. Thought content: Patient denied current suicidal or homicidal ideation, he endorsed resolving paranoia but no delusional content was noted, he endorses diminishing voices but denies visual hallucinations. Attention and concentration were intact and memory appeared reliable but none were formally tested. He is alert and oriented x3. Insight and judgment are fair, impulse control is limited, but improving. Vitals/I&O/Wt Last Vital Signs Temp 98.4 F 12/28/19 20:13 Pulse 93 12/28/19 20:13 Resp 18 12/28/19 20:13 BP 150/80 12/28/19 20:13 Pulse Ox 97 12/28/19 20:13 Data NPU : 12/23/19 07:38 12/23/19 07:38 A&P Additional A&P Information (1) Suicidal overdose: (2) Depressed: (3) Marijuana abuse: (4) Right foot pain: (5) Schizophrenia: This is a 24-year-old white male with paranoia and psychosis via auditory hallucinations with history of cannabis use and recent overdose reportedly secondary to the voices being unmanageable who is open to a trial of Abilify. 1. Continue current medication. 2. Continue every 15 minute checks for safety. 3. Encourage individual, group and milieu therapy. 4. Encouraged follow-up with sober living treatments at the highest level of care to which she is willing to commit. Involuntary Hold Information 96 Hour Hold: 96 Hour Involuntary Admission: Yes 96 Hour Hold Ending Date: 12/29/19 96 Hour Hold Ending Time: 09:00 Attestations NPU Medical Necessity Statement*: Inpatient hospitalization is medically necessary and the clinically appropriate intervention at this time. We will monitor medications and make changes and adjustments as indicated. Likely length of stay 1-2 days. Tentative plan for discharge tomorrow. Coding Level of Care Code Acute Health Social Work Professor for Ayesha Nj
[2019-12-28 20:13] VITALS: BP 150/80; PULSE 93; RESP 18; TEMP 36.9; O2SAT 97
[2019-12-28] MEDS: hyDROXYzine 25 mg Capsule 50 MG PO (20:37)
[2019-12-28] MEDS: trazodone 50 mg Tablet PO (20:37)
[2019-12-29 06:00] VITALS: BP 118/74; PULSE 71; RESP 18; TEMP 36.8; O2SAT 98
[2019-12-29] MEDS: ARIPiprazole 10 mg Tablet PO (07:56)
[2019-12-29 10:38] VITALS: BP 118/74; PULSE 71; RESP 18; TEMP 36.8; O2SAT 98
--- NOTE | 2019-12-29 11:44 | P.DS_ITS ---
Diagnoses at Discharge Discharge Diagnosis (1) Suicidal overdose: Status: Acute Qualifiers: Encounter type: initial encounter Qualified Code(s): T50.902A - Poisoning by unspecified drugs, medicaments and biological substances, intentional self-harm, initial encounter (2) Depressed: Status: Acute Qualifiers: Active/Remission status: currently active Depression Type: major depressive disorder Major depression episode severity: severe Major depression recurrence: recurrent Psychotic features: without psychotic features Qualified Code(s): F33.2 - Major depressive disorder, recurrent severe without psychotic features (3) Marijuana abuse: Status: Chronic (4) Right foot pain: Status: Resolved (5) Schizophrenia: Status: Acute Reason for Visit Reason for Visit: INTENTIONAL OVERDOSE Brief History: History of Present Illness Ivan Dover is a 24 year old male who presented to the emergency department with the following report: Chief Complaint: Psychiatric Symptoms Stated Complaint: INTENTIONAL OVERDOSE Time Seen by Provider: 12/23/19 07:53 History of Present Illness: HPI Narrative: 24-year-old male patient presents to the emergency department via EMS. Patient was discharged from neuropsychiatric unit on 12/21/2019. He reports 1 hour prior to arrival, at approximately 630 to 7 AM, took 15 to 16 tablets of 2 mg Risperdal. Prescribed Risperdal from neuropsych, 12/17/2019. He reports chronic depression, stress. He denies life changing or stressful event that led to intentional overdose. He reports auditory hallucinations, states voices are telling him to kill himself. He reports voices have been present since November. He has battled depression since age 14 with previous self-harm of cutting himself. He lives with his mother. States his mother was aware of what occurred this morning and called 911 for assistance. Associated symptoms: Reports auditory hallucinations, depression and suicidal ideation; Deny visual hallucinations or homicidal ideation He was admitted to the neuropsychiatric unit for the definitive treatment of those issues. He presents today reporting that he went home with the greatest of intentions and things just did not work out. He endorsed the part of the situation is that the voices have become untenable. And even no depression has been noted he reports the real issue is the voices are becoming so unmanageable that he feels the suicidal thinking and does feel a little bit of a dip in his mood. He reports that the voices got really bad about a year to a year and a half ago but acknowledges that the voices were there even before and he had ways to ignore them. Is just that about a year and a half ago it became overwhelming. He denies any other trials of medication other than the Risperdal and he reports that the voices never really dissipated. We discussed the risks, benefits and alternatives of initiating Abilify 10 mg p.o. every morning and he understood and agreed to proceed as is documented in this note. We reviewed his previous inpatient evaluation from last week and he denies any substantive changes and so an excerpt of that note is included below. Per his [facility] inpatient eval 12/18/2019: History of Present Illness Ivan Dover is a 24 year old male Ivan Dover is a 24-year-old male with no prior psychiatric history who was brought to the emergency room with the complaint described above. He says that he occasionally has suicidal thoughts. However he has no intent or plan. He does not seem to be particularly depressed. He spends his days playing his guitar and writing music. He feels that he is pretty good at playing guitar and writing music and sometimes will even play his guitar for a friend. He denies being depressed. However he does report the presence of auditory hallucinations. He hears more than 1 voice. There is no command nature to the hallucinations. He cannot identify any voices. He cannot tell whether they are coming from inside of his head or outside of his head. He does not find them typically troubling and is not too concerned about them. On interview today, he is not too concerned about much of anything. He admits that he smokes marijuana and that it helps relax him. He is guarded around how much he smokes. He claims to not really smoke very much. He says that he last went a whole day without smoking a few days ago. Other than getting rid of the auditory hallucinations, he has no other goals. Appetite and sleep are good by his report Laboratory Tests 12/17/19 12/17/19 21:50 22:25 Urine Opiates Screen Negative Ur Barbiturates Screen Negative Ur Phencyclidine Scrn Negative Ur Amphetamines Screen Negative U Benzodiazepines Scrn Negative Urine Cocaine Screen Negative U Marijuana (THC) Screen Positive H Ethyl Alcohol < 10 Past psychiatric history: He has no history of inpatient psychiatric treatment, outpatient psychiatric treatment. He did see a counselor for a while but does not really want to talk about that. Family psychiatric history: Patient states that there is nobody else in the family that has been treated for mental health problems. Nobody in the family has experienced auditory hallucinations. Nobody else in the family has an alcohol or substance abuse problem. Social history: The patient currently lives with his mother. His mother is employed full-time. The patient is unemployed. The patient has no intention of finding employment. I am not really very good at that kind of thing. He is a high school graduate. He was attending the local college and planning on a career in game design. He stopped attending school 4 years ago. He has no plans to return. He says that he has friends locally but does not name any of them. He describes no activities in which he engages with those friends. He has 2 brothers and a sister. He says he does not see them much. Medical history Records indicate that he is in good medical health. He is on no medications. Laboratory evaluation show that he has a mild elevation in RBC and his nonfasting blood sugar was 129. His urine drug screen was positive for marijuana. Otherwise the UDS was negative. Hospital Course Hospital Course Ivan presented to the emergency room endorsing lethality substance use and low mood. He was admitted to the neuropsychiatric unit for definitive treatment of those issues. On the unit he identified that the previous medication prescribed in his last/recent hospitalization were ineffective. He was open to a trial of Abilify which was effective. He slowly acclimated to the individual, group and milieu therapies provided and over the hospitalization had marked improvement. During the hospitalization he had routine laboratory studies which were within normal limits except for few outliers. Additionally had a general medical evaluation which was also within normal limits and revealed no new acute processes. Discharge Summary At the time of discharge, he denied lethality or psychosis, and his mood and anxiety were well managed. He reported a plan to avoid all drugs of abuse and to follow-up with outpatient services per the treatment team's recommendations. He was evaluated and deemed to be absent credible lethality and had achieved a maximum benefit from an inpatient hospitalization, so he was discharged. Involuntary Hold Information 96 Hour Hold: 96 Hour Involuntary Admission: Yes 96 Hour Hold Ending Date: 12/29/19 96 Hour Hold Ending Time: 09:00 Mental Status Exam MSE Comments: This is a well-nourished well-developed white male with adequate dress, grooming and limited eye contact. No abnormal movements except for mild psychomotor retardation. Cooperative with exam in no acute distress. Speech was more normal rate and volume. Mood described as good, affect congruent. Thought process organized. Thought content: Patient denied current suicidal or homicidal ideation, he endorsed resolving paranoia but no delusional content was noted, he endorses diminishing voices but denies visual hallucinations. Attention and concentration were intact and memory appeared reliable but none were formally tested. He is alert and oriented x3. Insight and judgment are fair, impulse control is limited, but improving. Discharge Data 2 Vitals: Last Vital Signs Temp 98.2 F 12/29/19 10:38 Pulse 71 12/29/19 10:38 Resp 18 12/29/19 10:38 BP 118/74 12/29/19 10:38 Pulse Ox 98 12/29/19 10:38 Discharge Plan Discharge Patient Disposition: Home Condition: Stable Prescriptions: New trazodone 50 mg Tablet 50 mg PO BEDTIME PRN (Reason: Sleep) 30 Days Qty: 30 RF: 1 aripiprazole 10 mg Tablet 10 mg PO DAILY 30 Days Qty: 30 RF: 1 Discontinued risperidone 1 mg Tablet 2 mg PO DAILY 30 Days Qty: 60 RF: 1 Discharge Orders: Discharge Order (Routine); Ordered 12/29/19 Ordered By: Davin Mcgovern Referrals: Ankur Branch MD [Physician] - 01/14/20 2:45 pm (It is important to go to this psych eval appointment in order to establish outpatient mental health services. If you need to reschedule any appointment you must give 24 hour notice. ) Discharge Diet: Regular Discharge Activity: Resume usual activity Patient Instructions: Trazodone (By mouth), Risperidone (By mouth), Aripiprazole (By mouth), Schizophrenia (DC) Discharge Date/Time: 12/29/19 13:02 Discharge Attestations NPU Time Spent in Discharge Care*: less than 30 min Specific Discharge Activities: Specific discharge activities: educating patient, discussing with case management assistant/social workers/dc planners, documenting/other paperwork and evaluating patient/reviewing data Status at Discharge: Cognitive status at discharge: cognitively intact , Behavioral status at discharge: cooperative , Coding Level of Care Code Acute Virtualization Consultant for g Fwd Diagnoses Suicidal overdose T50.902A Encounter type: initial encounter Depressed F33.2 Active/Remission status: currently active Depression Type: major depressive disorder Major depression episode severity: severe Major depression recurrence: recurrent Psychotic features: without psychotic features Marijuana abuse F12.10 Right foot pain M79.671 Schizophrenia F20.9
[2019-12-29 12:50] VITALS: BP 118/74; PULSE 71; RESP 18; TEMP 36.8; O2SAT 98
== END 2019-12-29 13:02 | disposition home or self-care (01) | DRG 918 ==
LOC: ER 10:47 → NP 10:48
PROVIDERS: Nurse Practitioner Family; Admitting Provider Psychiatry & Neurology Psychiatry; Visit Provider Psychiatry & Neurology Psychiatry
DX: T50.902A Poisoning by unspecified drugs, medicaments and biological substances, intentional self-harm, initial encounter (principal); F33.2 Major depressive disorder, recurrent severe without psychotic features; F23 Brief psychotic disorder; T65.91XA Toxic effect of unspecified substance, accidental (unintentional), initial encounter; Y92.009 Unspecified place in unspecified non-institutional (private) residence as the place of occurrence of the external cause; F12.10 Cannabis abuse, uncomplicated; M79.671 Pain in right foot; Z91.5 Personal history of self-harm
CPT/HCPCS: 12345; 80053; 80306; 80307; 81003; 85025; 93005; 99285

== ENCOUNTER 2020-01-10 13:28 | Emergency (ER) | payer SELFPAY ==
[2020-01-10 13:30] VITALS: BP 135/81; PULSE 95; RESP 14; TEMP 36.3; O2SAT 100; BMI 28.4
[2020-01-10 14:06] LABS: Basophils % 0.5 %; Eosinophils # 0.1 10^3/uL (0.0-0.8); Eosinophils % 2.1 %; Hematocrit 49.2 % (42.0-52.0); Hemoglobin 16.3 g/dL (11.7-16.6); Lymphocytes # 1.9 10^3/uL (0.8-4.8); Lymphocytes % 30.7 %; Mean Corpuscular HGB Conc 33.1 g/dL (30.0-36.0); Mean Corpuscular Volume 87.5 fL (80-94); Mean Platelet Volume 10.3 fL (7.4-10.4); Monocytes # 0.4 10^3/uL (0.2-0.9); Monocytes % 6.7 %; Neutrophils # 3.78 10^3/uL (1.8-7.7); Neutrophils % 59.8 %; Nucleated Red Blood Cells % 0 %; Platelet Count 257 10^3/cmm (130-400); Red Blood Count 5.62 10^6/uL (4.1-5.3); Red Cell Distribution Width 12.1 % (12.1-15.1); White Blood Count 6.3 10^3/uL (4.0-10.0)
[2020-01-10] MEDS: LORazepam 1 mg Tablet PO (14:14)
[2020-01-10 14:20] LABS: Alanine Aminotransferase 12 U/L (0-41); Alkaline Phosphatase 59 IU/L (40-130); Anion Gap 11.3 (5-19); Aspartate Amino Transferase 15 U/L (0-40); Blood Urea Nitrogen 10 mg/dL (6-20); Calcium 10.1 mg/dL (8.5-10.5); Carbon Dioxide 33 mmol/L (22-29); Chloride 99 mmol/L (98-107); Globulin 2.6 g/dL (1.3-4.6); Glomerular Filtration Rate 118.8 mL/min (90-130); Glucose 96 mg/dL (65-115); Osmolality Calculated 287 mOsm/kg (285-295); Potassium 4.3 mmol/L (3.5-5.1); Sodium 139 mmol/L (136-145); Total Bilirubin 0.6 mg/dL (0.15-1.2); Total Protein 7.6 g/dL (6.6-8.7)
[2020-01-10 14:21] LABS: Acetaminophen < 5.0 ug/mL (10-30); Alcohol Level < 10 mg/dL (0-10); Salicylate < 0.3 mg/dL (3-10)
[2020-01-10 14:22] LABS: Amphetamines Screen Urine Negative (Negative); Barbiturates Screen Urine Negative (Negative); Benzodiazepines Screen Urine Negative (Negative); Cocaine Screen Urine Negative (Negative); Opiate Screen Urine Negative (Negative); PCP Screen Urine Negative (Negative); THC Screen Urine Negative (Negative)
--- NOTE | 2020-01-10 14:23 | W.ED.PSYCH ---
HPI - Psych General: Chief Complaint: Psychiatric Symptoms Stated Complaint: SI Time Seen by Provider: 01/10/20 13:35 Source: patient Mode of arrival: ambulatory Limitations: no limitations History of Present Illness: HPI Narrative: 24-year-old male with a history of schizophrenia and has been hearing voices over the last 2 days that have been telling him him to kill himself along with burn house down. States he has had no active suicidal thoughts but states he is scared he is going to do something as he keeps hearing the voices worsen worse. He voluntarily wants to get help before he does make any actions. Denies any worsening improving factors. Associated symptoms: Reports auditory hallucinations and depression Review of Systems Const: Denies: fever(s), chills, body aches or change in appetite Eyes: Denies: blurry vision or eye discomfort ENMT: Denies: throat pain or dental pain Card: Denies: chest pain Resp: Denies: dyspnea GI: Denies: abdominal pain, nausea, vomiting or diarrhea : Denies: dysuria Musc: Denies: neck pain or back pain Skin/Breast: Denies: rash Neuro: Denies: headache(s) Psych: Reports: depression and auditory hallucinations Grady/Lymph: Denies: easy bruising All/Imm: Denies: urticaria PFSH ED PFSH: Family History Denies family history of Diabetes CAD (coronary artery disease) Hypertension Stroke Social History Smoking and tobacco status: never smoked Alcohol intake: never Current occupational status: employed Current occupation: [employer] Current gender identity: Male Physical Exam Const: COMMON NORMALS: no acute distress, patient oriented x3 and healthy appearing HENMT: COMMON NORMALS: normocephalic and atraumatic HEAD & SCALP: normocephalic and atraumatic Eye: COMMON NORMALS: Equal, round and reactive pupils present and EOMs intact bilaterally PUPIL: Yes Equal, round and reactive pupils present Neck/C-Spine: COMMON NORMALS: full ROM and supple Chest: COMMONS NORMALS: normal inspection of the chest and normal palpation of entire chest wall Resp: COMMON NORMALS: normal respiratory effort, No retractions, No use of accessory muscles and clear to auscultation bilaterally AUSCULTATION: clear to auscultation bilaterally Cardio: COMMON NORMALS: regular rate, regular rhythm and No murmurs present (Cardio) RATE: regular rate RHYTHM: regular rhythm GI: COMMON NORMALS: Normal to inspection, nondistended, normoactive bowel sounds present, Soft to palpation, non-tender and no masses PALPATION: Yes Soft to palpation Extremity: COMMON NORMALS: normal to inspection and full ROM Neuro: COMMON NORMALS: patient oriented x3, moves all extremities and no focal motor deficits Psych: COMMON NORMALS: cooperative MOOD & AFFECT: Yes depressed mood and Yes anxious Skin: COMMON NORMALS: no rashes or lesions noted and no wounds GENERAL SKIN EXAM: no rashes or lesions noted MDM - Psych MDM Narrative: Medical decision making narrative: Patient presents here with hallucinations and is voluntarily wanting to get help. Patient to outside facility as his brother is in the psych tim here at this time. Patient accepted at [facility] and will transfer there. He has been stable while here. Lab Data: Labs: Lab Results 01/10/20 01/10/20 01/10/20 Range/Units 13:55 13:58 13:58 WBC 6.3 (4.0-10.0) 10^3/ uL RBC 5.62 H (4.1-5.3) 10^6/u L Hgb 16.3 (11.7-16.6) g/dL Hct 49.2 (42.0-52.0) % MCV 87.5 (80-94) fL MCH 29.0 (28.0-34.0) pg MCHC 33.1 (30.0-36.0) g/dL RDW 12.1 (12.1-15.1) % Plt Count 257 (130-400) 10^3/c mm MPV 10.3 (7.4-10.4) fL Neut % (Auto) 59.8 % Lymph % (Auto) 30.7 % Wells % (Auto) 6.7 % Eos % (Auto) 2.1 % Baso % (Auto) 0.5 % Neut # (Auto) 3.78 (1.8-7.7) 10^3/u L Lymph # (Auto) 1.9 (0.8-4.8) 10^3/u L Wells # (Auto) 0.4 (0.2-0.9) 10^3/u L Eos # (Auto) 0.1 (0.0-0.8) 10^3/u L Baso # (Auto) 0.0 (0.0-0.1) 10^3/u L Nucleated RBC % (a uto) 0 % Nucleated RBCs # 0.0 /100WBC Sodium 139 (136-145) mmol/L Potassium 4.3 (3.5-5.1) mmol/L Chloride 99 (98-107) mmol/L Carbon Dioxide 33 H (22-29) mmol/L Anion Gap 11.3 (5-19) BUN 10 (6-20) mg/dL Creatinine 0.8 (0.7-1.2) mg/dL GFR Calculation 118.8 (90-130) mL/min Glucose 96 (65-115) mg/dL Calculated Osmolal ity 287 (285-295) mOsm/k g Calcium 10.1 (8.5-10.5) mg/dL Total Bilirubin 0.6 (0.15-1.2) mg/dL AST 15 (0-40) U/L ALT 12 (0-41) U/L Alkaline Phosphata se 59 (40-130) IU/L Total Protein 7.6 (6.6-8.7) g/dL Albumin 5.0 (3.5-5.2) g/dL Globulin 2.6 (1.3-4.6) g/dL Salicylates < 0.3 L (3-10) mg/dL Urine Opiates Scre en Negative (Negative) ng/mL Acetaminophen < 5.0 L (10-30) ug/mL Ur Barbiturates Sc reen Negative (Negative) ng/mL Ur Phencyclidine S crn Negative (Negative) ng/mL Ur Amphetamines Sc reen Negative (Negative) ng/mL U Benzodiazepines Scrn Negative (Negative) ng/mL Urine Cocaine Scre en Negative (Negative) ng/mL U Marijuana (THC) Screen Negative (Negative) ng/mL Ethyl Alcohol < 10 (0-10) mg/dL SARS-CoV-2 Ag (Rap id) (Negative) 01/10/20 Range/Units 17:10 WBC (4.0-10.0) 10^3/ uL RBC (4.1-5.3) 10^6/u L Hgb (11.7-16.6) g/dL Hct (42.0-52.0) % MCV (80-94) fL MCH (28.0-34.0) pg MCHC (30.0-36.0) g/dL RDW (12.1-15.1) % Plt Count (130-400) 10^3/c mm MPV (7.4-10.4) fL Neut % (Auto) % Lymph % (Auto) % Wells % (Auto) % Eos % (Auto) % Baso % (Auto) % Neut # (Auto) (1.8-7.7) 10^3/u L Lymph # (Auto) (0.8-4.8) 10^3/u L Wells # (Auto) (0.2-0.9) 10^3/u L Eos # (Auto) (0.0-0.8) 10^3/u L Baso # (Auto) (0.0-0.1) 10^3/u L Nucleated RBC % (a uto) % Nucleated RBCs # /100WBC Sodium (136-145) mmol/L Potassium (3.5-5.1) mmol/L Chloride (98-107) mmol/L Carbon Dioxide (22-29) mmol/L Anion Gap (5-19) BUN (6-20) mg/dL Creatinine (0.7-1.2) mg/dL GFR Calculation (90-130) mL/min Glucose (65-115) mg/dL Calculated Osmolal ity (285-295) mOsm/k g Calcium (8.5-10.5) mg/dL Total Bilirubin (0.15-1.2) mg/dL AST (0-40) U/L ALT (0-41) U/L Alkaline Phosphata se (40-130) IU/L Total Protein (6.6-8.7) g/dL Albumin (3.5-5.2) g/dL Globulin (1.3-4.6) g/dL Salicylates (3-10) mg/dL Urine Opiates Scre en (Negative) ng/mL Acetaminophen (10-30) ug/mL Ur Barbiturates Sc reen (Negative) ng/mL Ur Phencyclidine S crn (Negative) ng/mL Ur Amphetamines Sc reen (Negative) ng/mL U Benzodiazepines Scrn (Negative) ng/mL Urine Cocaine Scre en (Negative) ng/mL U Marijuana (THC) Screen (Negative) ng/mL Ethyl Alcohol (0-10) mg/dL SARS-CoV-2 Ag (Rap id) Negative (Negative) Discharge Plan Discharge Patient Disposition: Xfer Other Clinical Impression: Acute psychosis, Depressed Condition: Stable Discharge Orders: Transfer Out of Facility (Order); Ordered 01/10/20 Ordered By: Princess Contreras Coding Level of Care Code ED Machine Chain Maker for Chg Fwd Exam Comprehensive
--- NOTE | 2020-01-10 17:12 | PC.NURSE ---
pt given oral fluids and food. pt remains cooperative with staff at this time
[2020-01-10 18:24] LABS: SARS Covid-2 Antigen Negative (Negative)
[2020-01-10 18:43] VITALS: BP 132/85; PULSE 90; RESP 16; O2SAT 100
[2020-01-10 19:51] VITALS: BP 126/87; PULSE 94; O2SAT 97
== END 2020-01-10 19:53 | disposition other institution (70) ==
PROVIDERS: Emergency Provider Emergency Medicine
DX: F32.3 Major depressive disorder, single episode, severe with psychotic features (principal)
CPT/HCPCS: 36415; 80053; 80306; 80307; 85025; 87426; 99284; 99285

== ENCOUNTER → 2020-10-19 12:23 | Outpatient (BNVA) | payer SELFPAY | PROVIDERS: Visit Provider Psychiatry & Neurology Psychiatry | DX: F20.9 Schizophrenia, unspecified (principal); Z79.899 Other long term (current) drug therapy | CPT/HCPCS: 80053; 80061; 83036; 84443 ==

== ENCOUNTER 2022-07-08 15:39 | Outpatient (CLI) | payer MEDICAID, SELFPAY ==
--- NOTE | 2022-07-08 16:30 | CT_ITS ---
WS: [id number] CT HEAD TECHNIQUE: Noncontrast CT of the head obtained from the skullbase to the vertex. CLINICAL INFORMATION: F20.9 - Schizophrenia, unspecified COMPARISON: None. DLP: 1038.[address] scans at [facility] use at least one of these dose optimization techniques: automated e xposure control; mA and/or kV adjustment per patient size (includes targeted exams where dose is matc hed to clinical indication); or iterative reconstruction. FINDINGS: No evidence of intracranial hemorrhage or mass effect. Ventricular system and basal cisterns are massey nt. No extra-axial fluid collections. No evidence of mass or mass effect. Normal vaca-white different iation. Paranasal sinuses and mastoid air cells are well aerated. .Normal visualized soft tissues. CT/CT head wo con* [id number] IMPRESSION: 1. No evidence of intracranial hemorrhage or mass effect. 2. Normal vaca-white differentiation. 3. No acute intracranial findings.
== END 2022-07-08 15:40 | disposition home or self-care (01) ==
PROVIDERS: PCP Family Medicine; Visit Provider Psychiatry & Neurology Psychiatry
DX: F20.9 Schizophrenia, unspecified (principal)
CPT/HCPCS: 70450

== ENCOUNTER 2023-10-28 23:45 | Inpatient (IN) | payer MEDICAID, SELFPAY ==
--- NOTE | 2023-10-28 23:49 | ECG_ITS ---
[facility] Test Date: 2023-10-29 Pat Name: Ivan Dover Department: Room: Gender: Male Ophthalmic Medical Technologist: : 1995 Requested By: Vivien Torres Order Number: [id number] Pascual MD: Nghia Mcneal M.D. Measurements Intervals [place] Rate: 79 P: 48 ME: 130 QRS: 66 QRSD: 96 T: 44 QT: 343 QTc: 395 Interpretive Statements SINUS RHYTHM Compared to ECG 12/23/2019 08:13:39 Short ME interval no longer present T-wave abnormality no longer present Electronically Signed On 10-29-2023 11:21:40 CDT by Nghia Mcneal M.D. [id number]
[2023-10-28 23:50] VITALS: BP 142/87; PULSE 81; RESP 16; TEMP 36.8; O2SAT 97; BMI 27.8
--- NOTE | 2023-10-28 23:52 | W.ED.PSYCHS ---
HPI - Psych General: Chief Complaint: Psychiatric Symptoms Stated Complaint: SI Time Seen by Provider: 10/28/23 23:48 History of Present Illness: 28-year-old man with history of depression who presents to the emergency room by ambulance with suicidal thoughts. He states he was thinking about cutting himself. Apparently has been drinking and smoking some marijuana. He walks into the emergency room. No focal motor deficits. No specific plan at this time. Related Data Home Medications Medication Instructions Recorded Confirmed No Known Home Medications 10/29/23 10/29/23 Allergies Allergy/AdvReac Type Severity Reaction Status Date / Time No Known Allergies Allergy Verified 08/28/23 15:57 Review of Systems Narrative: Constitutional symptoms: Negative except as documented in HPI. Skin symptoms: Negative except as documented in HPI. Eye symptoms: Negative except as documented in HPI. ENMT symptoms: Negative except as documented in HPI. Respiratory symptoms: Negative except as documented in HPI. Cardiovascular symptoms: Negative except as documented in HPI. Gastrointestinal symptoms: Negative except as documented in HPI. Genitourinary symptoms: Negative except as documented in HPI. Musculoskeletal symptoms: Negative except as documented in HPI. Neurologic symptoms: Negative except as documented in HPI. Psychiatric symptoms: Negative except as documented in HPI. Endocrine symptoms: Negative except as documented in HPI. [facility] ED PFSH: Medical History Psychiatric care Family History Denies family history of Diabetes CAD (coronary artery disease) Hypertension Stroke Social History (Updated 12/25/21 @ 16:04 by Buck Manning LPN) Smoking and tobacco/nicotine status: current every day tobacco/nicotine user e-cigarettes E-Cigarette Details: vaporizer device and without nicotine E-cig/vape details: Occasional use. Quit status (tobacco/nicotine): has quit using Year quit tobacco: 2008 Second hand smoke exposure: Yes Alcohol intake: former Substance/Drug Use: former Current occupational status: employed Current occupation: [employer] Current gender identity: Male Physical Exam Narrative: EXAM NARRATIVE: General: Alert, no acute distress. Skin: Warm, dry. Head: Normocephalic, atraumatic. Neck: Supple, trachea midline. Eye: Extraocular movements are intact. Ears, nose, mouth and throat: mucosa moist. Cardiovascular: Regular, Normal peripheral perfusion. Respiratory: Lungs are clear to auscultation, respirations are non-labored, breath sounds are equal, Symmetrical chest wall expansion. Gastrointestinal: Soft, Nontender, Non distended Musculoskeletal: Normal ROM, no deformity. Neurological: Alert and oriented, No focal neurological deficit observed. Psychiatric: Cooperative, patient endorses suicidal thoughts Course Vital Signs: Vital signs: Vital Signs Temperature 98.3 F 10/28/23 23:50 Pulse Rate 81 10/28/23 23:50 Respiratory Rate 16 10/28/23 23:50 Blood Pressure 142/87 10/28/23 23:50 Pulse Oximetry 97 10/28/23 23:50 Oxygen Delivery Me thod Room Air 10/28/23 23:50 MDM - Psych Medical Decision Making Differential diagnosis: Patient with reported depression and suicidal ideation. concerns for infection, alcohol intoxication, cardiac issues or other medical problems prior to psychiatric admission. Workup: labwork, ekg ordered to evaluate the pathologies and to clear the patient medically prior to psychiatric admission EKG: Time 0009. Rate 79 normal sinus rhythm, No ST-T changes, no ectopy, normal [place] & QRS intervals, This was reviewed and interpreted by myself the ER physician at 0010 Lab Review: Laboratory results were reviewed and interpreted by myself the emergency room physician. Lab review: - Medically cleared. - EKG shows no ischemic changes. - Blood alcohol level is 140, -Tylenol and salicylate levels are negative. - Drug screen is positive for marijuana - No signs of infection, urinalysis clear and white count is not elevated - No anemia. - BUN and creatinine are within normal limits. Consultation: I spoke with Dr. Mcgovern who is on-call for psychiatry excepted the patient to the unit. Assessment and plan: Suicidal ideation Alcohol intoxication -Admission to neuropsychiatric unit for continued evaluation and treatment. - All lab work was reviewed and interpreted personally by myself, the ER physician - Evaluation and treatment of this problem were appropriate in the emergency setting Lab Data 10/29/23 01:02 10/29/23 00:14 Laboratory Results WBC 6.72 10^3/uL (3.29-11.43) 10/29/23 01:02 Corrected WBC Cancelled 10/29/23 00:14 RBC 5.23 10^6/uL (3.85-5.65) 10/29/23 01:02 Hgb 14.70 g/dL (11.27-16.99) 10/29/23 01:02 Hct 45.0 % (37-53) 10/29/23 01:02 MCV 86.0 fl (82-101) 10/29/23 01:02 MCH 28.1 pg (27-33) 10/29/23 01:02 MCHC 32.7 g/dL (30-55) 10/29/23 01:02 RDW 12.8 % (12.1-15.1) 10/29/23 01:02 Plt Count 199 10^3/cmm (157-399) 10/29/23 01:02 MPV 10.9 fL (7.4-10.4) H 10/29/23 01:02 Gran % Cancelled 10/29/23 00:14 Neut % (Auto) 63.4 % 10/29/23 01:02 Lymph % (Auto) 27.8 % 10/29/23 01:02 [place] % (Auto) 6.5 % 10/29/23 01:02 Eos % (Auto) 1.6 % 10/29/23 01:02 Baso % (Auto) 0.4 % 10/29/23 01:02 Neut # (Auto) 4.25 10^3/uL (1.8-7.7) 10/29/23 01:02 Lymph # (Auto) 1.9 10^3/uL (0.8-4.8) 10/29/23 01:02 [place] # (Auto) 0.4 10^3/uL (0.2-0.9) 10/29/23 01:02 Eos # (Auto) 0.1 10^3/uL (0.0-0.8) 10/29/23 01:02 Baso # (Auto) 0.0 10^3/uL (0.0-0.1) 10/29/23 01:02 Absolute Gran (auto) Cancelled 10/29/23 00:14 Nucleated RBC % (auto) 0 % 10/29/23 01:02 Nucleated RBCs # 0.0 /100WBC 10/29/23 01:02 Sodium 141 mmol/L (136-145) 10/29/23 00:14 Potassium 4.1 mmol/L (3.5-5.1) 10/29/23 00:14 Chloride 106 mmol/L (98-107) 10/29/23 00:14 Carbon Dioxide 20 mmol/L (22-29) L 10/29/23 00:14 Anion Gap 19.1 (5-19) H 10/29/23 00:14 BUN 5 mg/dL (6-20) L 10/29/23 00:14 Creatinine 0.6 mg/dL (0.7-1.2) L 10/29/23 00:14 GFR Calculation 160.4 mL/min (90-130) H 10/29/23 00:14 Glucose 97 mg/dL (65-115) 10/29/23 00:14 Calculated Osmolality 289 mOsm/kg (285-295) 10/29/23 00:14 Calcium 8.9 mg/dL (8.5-10.5) 10/29/23 00:14 Total Bilirubin 0.7 mg/dL (0.15-1.2) 10/29/23 00:14 AST 31 U/L (0-40) 10/29/23 00:14 ALT 21 U/L (0-41) 10/29/23 00:14 Alkaline Phosphatase 73 U/L (40-130) 10/29/23 00:14 Total Protein 7.8 g/dL (6.6-8.7) 10/29/23 00:14 Albumin 4.6 g/dL (3.5-5.2) 10/29/23 00:14 Globulin 3.2 g/dL (1.3-4.6) 10/29/23 00:14 TSH 4.16 uIU/mL (0.27-4.20) 10/29/23 00:14 Urine Color Yellow (Yellow) 10/29/23 00:54 Urine Appearance Clear (CLEAR) 10/29/23 00:54 Urine pH 7.5 (5-7) 10/29/23 00:54 Ur Specific [place] 1.015 (1.005-1.030) 10/29/23 00:54 Urine Protein Negative (Negative) 10/29/23 00:54 Urine Glucose (UA) Negative (Normal) 10/29/23 00:54 Urine Ketones Negative (Negative) 10/29/23 00:54 Urine Blood Trace (Negative) A 10/29/23 00:54 Urine Nitrate Negative (Negative) 10/29/23 00:54 Urine Bilirubin Negative (Negative) 10/29/23 00:54 Urine Urobilinogen 1.0 mg/dL (Negative) 10/29/23 00:54 Ur Leukocyte Esterase Negative (Negative) 10/29/23 00:54 Urine RBC 3-5 /hpf (0-2) 10/29/23 00:54 Urine WBC 0-5 /hpf (0-5) 10/29/23 00:54 Ur Squamous Epith Cells 0-5 /hpf (0-5) 10/29/23 00:54 Amorphous Sediment Not Reportable 10/29/23 00:54 Urine Bacteria None seen /hpf (NONE) 10/29/23 00:54 Hyaline Casts 0-4 /lpf H 10/29/23 00:54 Salicylates < 0.3 mg/dL (3-10) L 10/29/23 00:14 Urine Opiates Screen Negative ng/mL (Negative) 10/29/23 00:54 Acetaminophen < 5.0 ug/mL (10-30) L 10/29/23 00:14 Ur Barbiturates Screen Negative ng/mL (Negative) 10/29/23 00:54 Ur Phencyclidine Scrn Negative ng/mL (Negative) 10/29/23 00:54 Ur Amphetamines Screen Negative ng/mL (Negative) 10/29/23 00:54 U Benzodiazepines Scrn Negative ng/mL (Negative) 10/29/23 00:54 Urine Cocaine Screen Negative ng/mL (Negative) 10/29/23 00:54 U Marijuana (THC) Screen Positive ng/mL (Negative) H 10/29/23 00:54 Ethyl Alcohol 140 mg/dL (0-10) H 10/29/23 00:14 No radiology studies performed this visit Discharge Plan Discharge Patient Disposition: Admitted As Inpatient Clinical Impression: Suicidal ideation, Alcohol intoxication Condition: Stable Coding Level of Care Code ED [employer]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
[2023-10-29 00:48] LABS: Alanine Aminotransferase 21 U/L (0-41); Albumin Level 4.6 g/dL (3.5-5.2); Alcohol Level 140 mg/dL (0-10); Alkaline Phosphatase 73 U/L (40-130); Blood Urea Nitrogen 5 mg/dL (6-20); Calcium 8.9 mg/dL (8.5-10.5); Carbon Dioxide 20 mmol/L (22-29); Chloride 106 mmol/L (98-107); Creatinine Clr Calc Pharmacy 211.2113; Globulin 3.2 g/dL (1.3-4.6); Glomerular Filtration Rate 160.4 mL/min (90-130); Glucose 97 mg/dL (65-115); Osmolality Calculated 289 mOsm/kg (285-295); Sodium 141 mmol/L (136-145); Thyroid Stimulating Hormone 4.16 uIU/mL (0.27-4.20); Total Bilirubin 0.7 mg/dL (0.15-1.2); Total Protein 7.8 g/dL (6.6-8.7)
[2023-10-29 00:50] LABS: Acetaminophen < 5.0 ug/mL (10-30); Anion Gap 19.1 (5-19); Aspartate Amino Transferase 31 U/L (0-40); Potassium 4.1 mmol/L (3.5-5.1); Salicylate < 0.3 mg/dL (3-10)
[2023-10-29 01:01] LABS: Bilirubin Urine Negative (Negative); Blood Urine Trace (Negative); Glucose Urine UA Negative (Normal); Ketones Urine Negative (Negative); Leukocyte Esterase Urine Negative (Negative); Nitrate Urine Negative (Negative); Protein Urine Negative (Negative); Specific Gravity, Urine 1.015 (1.005-1.030); Urine Appearance Clear (CLEAR); Urine Color Yellow (Yellow); pH Urine 7.5 (5-7)
[2023-10-29 01:05] LABS: Basophils % 0.4 %; Eosinophils # 0.1 10^3/uL (0.0-0.8); Eosinophils % 1.6 %; Lymphocytes # 1.9 10^3/uL (0.8-4.8); Lymphocytes % 27.8 %; Mean Corpuscular HGB Conc 32.7 g/dL (30-55); Mean Corpuscular Hemoglobin 28.1 pg (27-33); Mean Platelet Volume 10.9 fL (7.4-10.4); Monocytes # 0.4 10^3/uL (0.2-0.9); Monocytes % 6.5 %; Neutrophils # 4.25 10^3/uL (1.8-7.7); Neutrophils % 63.4 %; Nucleated Red Blood Cells % 0 %; Platelet Count 199 10^3/cmm (157-399); Red Blood Count 5.23 10^6/uL (3.85-5.65); Red Cell Distribution Width 12.8 % (12.1-15.1); White Blood Count 6.72 10^3/uL (3.29-11.43)
[2023-10-29 01:06] LABS: Bacteria Urine None Seen /hpf; Hyaline Casts Urine 0-4 /lpf; Squamous Epithelial Cell Urine 0-5 /hpf (0-5); WBC Urine 0-5 /hpf (0-5)
[2023-10-29 01:08] LABS: Amphetamines Screen Urine Negative (Negative); Barbiturates Screen Urine Negative (Negative); Benzodiazepines Screen Urine Negative (Negative); Cocaine Screen Urine Negative (Negative); Opiate Screen Urine Negative (Negative); PCP Screen Urine Negative (Negative); THC Screen Urine Positive (Negative)
[2023-10-29 01:44] LABS: Add Urine Culture? No
[2023-10-29 08:15] VITALS: BP 164/86; PULSE 62; RESP 16; TEMP 36.8; O2SAT 100
[2023-10-29 08:16] VITALS: BP 140/81; RESP 16; O2SAT 97
[2023-10-29] MEDS: thiamine 100 mg Tablet PO (09:30)
[2023-10-29] MEDS: multivitamin therapeutic Tablet 1 TAB PO (09:30)
[2023-10-29] MEDS: folic acid 1 mg Tablet PO (09:30)
[2023-10-29 12:45] VITALS: BP 130/73; PULSE 93; RESP 16; TEMP 37.5; O2SAT 98
[2023-10-29 19:16] VITALS: BP 149/97; PULSE 119; RESP 16; TEMP 36.7; O2SAT 97
[2023-10-30] VITALS (7 sets, daily range): BP systolic 110–167; BP diastolic 64–105; PULSE 67–96; RESP 16–18; TEMP 36.3–37; O2SAT 96–100
--- NOTE | 2023-10-30 07:30 | W.PM.NPUH&PS ---
Providers/Chief Complaint Admitting Physician: Davin Mcgovern MD Chief Complaint: SI HPI NPU History of Present Illness Ivan Dover is a 28 year old male who presented to the emergency department with the following report: Chief Complaint: Psychiatric Symptoms Stated Complaint: SI Time Seen by Provider: 10/28/23 23:48 History of Present Illness: 28-year-old man with history of depression who presents to the emergency room by ambulance with suicidal thoughts. He states he was thinking about cutting himself. Apparently has been drinking and smoking some marijuana. He walks into the emergency room. No focal motor deficits. No specific plan at this time. He was admitted to the neuropsychiatric unit for definitive treatment of those issues. He is known to the system through inpatient and outpatient services and an excerpt of his last hospitalization is included below for history and context. After that hospitalization he did follow-up with [facility] with good adherence until December 2022. He presents today reporting: Chief complaint The patient was brought to the hospital after an episode of anger and yelling in public. The patient reported feeling upset and hearing voices that became overwhelming. History of the present complaint The patient reported an incident that led to his hospitalization. He mentioned that he became upset and started yelling in a public area, which resulted in the police being called. The patient did not provide specific details about the trigger of his emotional outburst. This is his fourth hospitalization, with the last one occurring in 2019. The patient had been receiving outpatient care at [facility] under Dr. Branch until sometime last year. After that, his mother arranged for him to see another doctor at [facility]. However, he stopped taking his medication after he stopped seeing Dr. Cline. He did not continue his medication even after starting treatment at [facility]. The patient reported that he felt he did not need the medication anymore. The patient admitted to using cannabis and THC regularly, and he recently started drinking alcohol again after a period of abstinence. He denied using any other drugs recently or long-term, and he has never been to rehab or had any charges related to drug use. The patient reported hearing voices, which he described as overwhelming and constant. He stated that these voices were present even when he was on medication and seeing Dr. Branch. He has been on various medications in the past, including Abilify, Geodon, Zyprexa, Seroquel, and Latuda, but none of these medications have completely alleviated his symptoms. The patient was brought to the hospital after an episode of anger and yelling, which he attributed to the voices becoming out of control. Since his admission, he has been given some medication, which he felt was helpful. He acknowledged that while the voices do not completely go away, medication might help manage his symptoms. Currently, the patient reported feeling a little better than the previous day. He denied having any thoughts of self-harm or suicide, but he mentioned that the voices often tell him to harm himself, which he usually ignores. He also reported experiencing paranoia, specifically feeling like ghosts are following him. In addition to hearing voices, the patient also reported seeing things. Mental health history The patient has a history of multiple hospitalizations, with this being the fourth one. The last hospitalization was in 2019. The patient has been to this hospital three times and once to [place]. The patient was previously under the care of Dr. Branch at [facility] and later at [facility]. The patient has been on various medications including Abilify, Geodon, Zyprexa, Seroquel, and Latuda. However, the patient stopped taking medication after ceasing to see Dr. Cline, feeling that they didn't need it. The patient reported that the voices never went away even when on medication. Social history The patient reported using THC and cannabis regularly. The patient started drinking alcohol again recently after a period of abstinence. The patient denied any use of other drugs or having any problems with substances like methamphetamine or opiates. The patient has never been to rehab and has no charges related to drug use. Per his 12/29/2019 [facility] inpatient psychiatric discharge summary: History of Present Illness Ivan Dover is a 24 year old male who presented to the emergency department with the following report: Chief Complaint: Psychiatric Symptoms Stated Complaint: INTENTIONAL OVERDOSE Time Seen by Provider: 12/23/19 07:53 History of Present Illness: HPI Narrative: 24-year-old male patient presents to the emergency department via EMS. Patient was discharged from neuropsychiatric unit on 12/21/2019. He reports 1 hour prior to arrival, at approximately 630 to 7 AM, took 15 to 16 tablets of 2 mg Risperdal. Prescribed Risperdal from [facility], 12/17/2019. He reports chronic depression, stress. He denies life changing or stressful event that led to intentional overdose. He reports auditory hallucinations, states voices are telling him to kill himself. He reports voices have been present since November. He has battled depression since age 14 with previous self-harm of cutting himself. He lives with his mother. States his mother was aware of what occurred this morning and called 911 for assistance. Associated symptoms: Reports auditory hallucinations, depression and suicidal ideation; Deny visual hallucinations or homicidal ideation He was admitted to the neuropsychiatric unit for the definitive treatment of those issues. He presents today reporting that he went home with the greatest of intentions and things just did not work out. He endorsed the part of the situation is that the voices have become untenable. And even no depression has been noted he reports the real issue is the voices are becoming so unmanageable that he feels the suicidal thinking and does feel a little bit of a dip in his mood. He reports that the voices got really bad about a year to a year and a half ago but acknowledges that the voices were there even before and he had ways to ignore them. Is just that about a year and a half ago it became overwhelming. He denies any other trials of medication other than the Risperdal and he reports that the voices never really dissipated. We discussed the risks, benefits and alternatives of initiating Abilify 10 mg p.o. every morning and he understood and agreed to proceed as is documented in this note. We reviewed his previous inpatient evaluation from last week and he denies any substantive changes and so an excerpt of that note is included below. Per his [facility] inpatient eval 12/18/2019: History of Present Illness Ivan Dover is a 24 year old male Ivan Dover is a 24-year-old male with no prior psychiatric history who was brought to the emergency room with the complaint described above. He says that he occasionally has suicidal thoughts. However he has no intent or plan. He does not seem to be particularly depressed. He spends his days playing his guitar and writing music. He feels that he is pretty good at playing guitar and writing music and sometimes will even play his guitar for a friend. He denies being depressed. However he does report the presence of auditory hallucinations. He hears more than 1 voice. There is no command nature to the hallucinations. He cannot identify any voices. He cannot tell whether they are coming from inside of his head or outside of his head. He does not find them typically troubling and is not too concerned about them. On interview today, he is not too concerned about much of anything. He admits that he smokes marijuana and that it helps relax him. He is guarded around how much he smokes. He claims to not really smoke very much. He says that he last went a whole day without smoking a few days ago. Other than getting rid of the auditory hallucinations, he has no other goals. Appetite and sleep are good by his report Laboratory Tests 12/16/2009/02/20 21:5022:25 Urine Opiates Screen Negative Ur Barbiturates Screen Negative Ur Phencyclidine Scrn Negative Ur Amphetamines Screen Negative U Benzodiazepines Scrn Negative Urine Cocaine Screen Negative U Marijuana (THC) Screen Positive H Ethyl Alcohol < 10 Past psychiatric history: He has no history of inpatient psychiatric treatment, outpatient psychiatric treatment. He did see a counselor for a while but does not really want to talk about that. Family psychiatric history: Patient states that there is nobody else in the family that has been treated for mental health problems. Nobody in the family has experienced auditory hallucinations. Nobody else in the family has an alcohol or substance abuse problem. Social history: The patient currently lives with his mother. His mother is employed full-time. The patient is unemployed. The patient has no intention of finding employment. I am not really very good at that kind of thing. He is a high school graduate. He was attending the local college and planning on a career in game design. He stopped attending school 4 years ago. He has no plans to return. He says that he has friends locally but does not name any of them. He describes no activities in which he engages with those friends. He has 2 brothers and a sister. He says he does not see them much. Medical history Records indicate that he is in good medical health. He is on no medications. Laboratory evaluation show that he has a mild elevation in RBC and his nonfasting blood sugar was 129. His urine drug screen was positive for marijuana. Otherwise the UDS was negative. Meds NPU Home Medications Medication Instructions Recorded Confirmed Last Taken Type No Known Home Medications 10/29/23 10/29/23 Unknown History Allergies Allergy/AdvReac Type Severity Reaction Status Date / Time No Known Allergies Allergy Verified 08/28/23 15:57 PFSH NPU PFSH: Medical History Psychiatric care Family History Denies family history of Diabetes CAD (coronary artery disease) Hypertension Stroke Social History (Updated 12/25/21 @ 16:04 by Buck Manning LPN) Smoking and tobacco/nicotine status: current every day tobacco/nicotine user e-cigarettes E-Cigarette Details: vaporizer device and without nicotine E-cig/vape details: Occasional use. Quit status (tobacco/nicotine): has quit using Year quit tobacco: 2008 Second hand smoke exposure: Yes Alcohol intake: former Substance/Drug Use: former Current occupational status: employed Current occupation: [employer] Current gender identity: Male Mental Status Exam MSE Comments: This is a well-nourished well-developed white male in hospital scrubs with limited grooming and eye contact. Hair dyed blonde on top. No abnormal movements except for psychomotor retardation. Cooperative with exam in mild to moderate distress. Speech was decreased rate and volume. Mood described as a little better than yesterday, affect congruent. Thought process organized. Thought content: Patient denied suicidal or homicidal ideation but reports having voices telling him to kill himself, he endorsed paranoia but no delusional content was noted, he endorses hearing voices and also reports seeing things visual hallucinations. The patient reported hearing voices that tell them to harm themselves, but they usually ignore these voices. The patient also reported feeling followed by ghosts and seeing things. The patient denied having any current thoughts of self-harm or suicide. The patient reports to be in a slightly better state than the previous day after receiving some medication. Attention and concentration were intact and memory appeared somewhat reliable but none were formally tested. He is alert and oriented x3. Attention and concentration were limited, impulse control is limited versus impaired. Vitals/I&O/Wt Last Vital Signs Temp 99.5 F 10/29/23 12:45 Pulse 93 10/29/23 12:45 Resp 16 10/29/23 12:45 BP 130/73 10/29/23 12:45 Pulse Ox 98 10/29/23 12:45 O2 Del Method Room Air 10/29/23 12:45 Weight last 48 hrs Weight 90.718 kg Data NPU 10/29/23 01:02 10/29/23 00:14 A&P Assessment and plan (1) Borderline personality disorder: (2) Cannabis use disorder, severe, dependence: (3) Suicidal ideation: (4) Alcohol intoxication: (5) Acute psychosis: (6) Schizophrenia: (7) Hallucinations: (8) Marijuana abuse: Plan This is a 28-year-old white male with a significant history of addiction issues and psychiatric morbidity including recent diagnoses of schizophrenia and borderline personality disorder who presents to the emergency department endorsing really struggling and needing assistance with urges to self-harm, off medication and with active addiction including UDS positive for cannabis and blood alcohol of 140 on admission with active psychosis. The patient has a history of mental health issues and has been hospitalized multiple times. The patient has been on various medications but stopped taking them, feeling they were not necessary. The patient reported hearing voices and having visual hallucinations. The patient's condition seemed to improve slightly after receiving medication. 1. Encourage initiation of antipsychotic. 2. Continue every 15 minute checks for safety. 3. Encourage individual, group and milieu therapy. 4. Encouraged sober living treatments after discharge at the highest level of care to which he is willing to commit. Involuntary Hold Information 96 Hour Hold: 96 Hour Involuntary Admission: No Attestations NPU Medical Necessity Statement*: Inpatient hospitalization is medically necessary and the clinically appropriate intervention at this time. We will monitor medications and make changes and adjustments as indicated. He will be in the hospital for over 2 midnights. Likely length of stay 4 to 6 days. Coding Level of Care Code Acute Code for [facility] Fwd Diagnoses Borderline personality disorder F60.3 Cannabis use disorder, severe, dependence F12.20 Suicidal ideation R45.851 Alcohol intoxication F10.929 Acute psychosis F23 Schizophrenia F20.9 Hallucinations R44.3 Marijuana abuse F12.10
[2023-10-30] MEDS: folic acid 1 mg Tablet PO (08:19)
[2023-10-30] MEDS: thiamine 100 mg Tablet PO (08:19)
[2023-10-30] MEDS: LORazepam 2 mg Tablet PO (08:19)
[2023-10-30] MEDS: multivitamin therapeutic Tablet 1 TAB PO (08:19)
[2023-10-30] MEDS: trazodone 50 mg Tablet PO (20:31)
[2023-10-30] MEDS: haloperidol 5 mg Tablet PO (20:31)
[2023-10-31 03:00] VITALS: BP 120/73; PULSE 66; RESP 18; O2SAT 98
[2023-10-31 07:00] VITALS: BP 119/70; PULSE 70; RESP 16; TEMP 36.6; O2SAT 99
[2023-10-31] MEDS: folic acid 1 mg Tablet PO (10:49)
[2023-10-31] MEDS: multivitamin therapeutic Tablet 1 TAB PO (10:49)
[2023-10-31] MEDS: thiamine 100 mg Tablet PO (10:49)
[2023-10-31 11:00] VITALS: BP 135/84; PULSE 86; RESP 17; TEMP 36.6; O2SAT 98
--- NOTE | 2023-10-31 13:56 | P.NPUPN_ITS ---
Subjective NPU 2 Subjective: Patient presented today reporting that he is doing okay. He is feeling anxious about what happens next. He continues to ponder whether to restart his medication or not. Continue to discuss the importance of him focusing on being stable on medication and appreciating the impact that addiction might have on his mental health. Mental Status Exam 2 MSE Comments: This is a well-nourished well-developed white male in hospital scrubs with limited grooming and eye contact. Hair dyed blonde on top. No abnormal movements except for psychomotor retardation. Cooperative with exam in mild to moderate distress. Speech was decreased rate and volume. Mood described as a little better than yesterday, affect congruent. Thought process organized. Thought content: Patient denied suicidal or homicidal ideation but reports having voices telling him to kill himself, he endorsed paranoia but no delusional content was noted, he endorses hearing voices and also reports seeing things visual hallucinations. The patient reported hearing voices that tell them to harm themselves, but they usually ignore these voices. The patient also reported feeling followed by ghosts and seeing things. The patient denied having any current thoughts of self-harm or suicide. The patient reports to be in a slightly better state than the previous day after receiving some medication. Attention and concentration were intact and memory appeared somewhat reliable but none were formally tested. He is alert and oriented x3. Attention and concentration were limited, impulse control is limited versus impaired. Vitals/I&O/Wt Last Vital Signs Temp 98 F 10/31/23 07:00 Pulse 70 10/31/23 07:00 Resp 16 10/31/23 07:00 BP 119/70 10/31/23 07:00 Pulse Ox 99 10/31/23 07:00 O2 Del Method Room Air 10/31/23 07:00 Data NPU 10/29/23 01:02 10/29/23 00:14 A&P Assessment and plan (1) Borderline personality disorder: (2) Cannabis use disorder, severe, dependence: (3) Suicidal ideation: (4) Alcohol intoxication: (5) Acute psychosis: (6) Schizophrenia: (7) Hallucinations: (8) Marijuana abuse: Plan This is a 28-year-old white male with a significant history of addiction issues and psychiatric morbidity including recent diagnoses of schizophrenia and borderline personality disorder who presents to the emergency department endorsing really struggling and needing assistance with urges to self-harm, off medication and with active addiction including UDS positive for cannabis and blood alcohol of 140 on admission with active psychosis. The patient has a history of mental health issues and has been hospitalized multiple times. The patient has been on various medications but stopped taking them, feeling they were not necessary. The patient reported hearing voices and having visual hallucinations. The patient's condition seemed to improve slightly after receiving medication. 1. Encourage initiation of antipsychotic. 2. Continue every 15 minute checks for safety. 3. Encourage individual, group and milieu therapy. 4. Encouraged sober living treatments after discharge at the highest level of care to which he is willing to commit. Involuntary Hold Information 2 96 Hour Hold: 96 Hour Involuntary Admission: No Attestations NPU 2 Medical Necessity Statement*: Inpatient hospitalization is medically necessary and the clinically appropriate intervention at this time. We will monitor medications and make changes and adjustments as indicated. Likely length of stay 3-5 days. Coding Level of Care Code Acute Code for [facility] Diagnoses Borderline personality disorder F60.3 Cannabis use disorder, severe, dependence F12.20 Suicidal ideation R45.851 Alcohol intoxication F10.929 Acute psychosis F23 Schizophrenia F20.9 Hallucinations R44.3 Marijuana abuse F12.10
[2023-10-31 15:00] VITALS: BP 153/85; PULSE 82; RESP 16; TEMP 37.1; O2SAT 98
--- NOTE | 2023-10-31 18:27 | PC.NURSE ---
Patient's room searched for contraband by staff; no contraband found. Patient cooperative with search
[2023-10-31 19:00] VITALS: BP 151/102; PULSE 87; RESP 18; TEMP 36.7; O2SAT 97
[2023-10-31] MEDS: trazodone 50 mg Tablet PO (20:14)
[2023-10-31 21:39] VITALS: BP 172/75; PULSE 84; RESP 18; O2SAT 99
[2023-11-01] VITALS (7 sets, daily range): BP systolic 135–158; BP diastolic 84–101; PULSE 76–101; RESP 16–18; TEMP 36.3–37; O2SAT 97–99
[2023-11-01] MEDS: folic acid 1 mg Tablet PO (07:51)
[2023-11-01] MEDS: thiamine 100 mg Tablet PO (07:51)
[2023-11-01] MEDS: multivitamin therapeutic Tablet 1 TAB PO (07:51)
--- NOTE | 2023-11-01 16:38 | P.NPUPN_ITS ---
Subjective NPU 2 Subjective: Patient presented today reporting that he is starting to feel better each day. We had a lengthy discussion about the role that medications could play in treatment of his condition. We also discussed sobriety. We discussed the fact that he needed to be engaged in treatment for things to be better. He endorsed a willingness to engage in therapy and we discussed the social work team returning on Friday to make appointments. We discussed the likelihood of discharge then. Mental Status Exam 2 MSE Comments: This is a well-nourished well-developed white male in hospital scrubs with limited grooming and eye contact. Hair dyed blonde on top. No abnormal movements except for psychomotor retardation. Cooperative with exam in mild distress. Speech was decreased rate and volume. Mood described as a little better, affect congruent. Thought process organized. Thought content: Patient denied suicidal or homicidal ideation but reports having voices telling him to kill himself, he endorsed paranoia but no delusional content was noted, he endorses hearing voices and also reports seeing things visual hallucinations. The patient reported hearing voices that tell them to harm themselves, but they usually ignore these voices. The patient also reported feeling followed by ghosts and seeing things. The patient denied having any current thoughts of self-harm or suicide. The patient reports to be in a slightly better state than the previous day after receiving some medication. Attention and concentration were intact and memory appeared somewhat reliable but none were formally tested. He is alert and oriented x3. Attention and concentration were limited, impulse control is limited versus impaired. Vitals/I&O/Wt Last Vital Signs Temp 98 F 11/01/23 13:44 Pulse 91 11/01/23 13:44 Resp 16 11/01/23 13:44 BP 157/84 11/01/23 13:44 Pulse Ox 97 11/01/23 13:44 O2 Del Method Room Air 11/01/23 13:44 Weight last 48 hrs Weight 102.569 kg Data NPU 10/29/23 01:02 10/29/23 00:14 A&P Assessment and plan (1) Borderline personality disorder: (2) Cannabis use disorder, severe, dependence: (3) Suicidal ideation: (4) Alcohol intoxication: (5) Acute psychosis: (6) Schizophrenia: (7) Hallucinations: (8) Marijuana abuse: Plan This is a 28-year-old white male with a significant history of addiction issues and psychiatric morbidity including recent diagnoses of schizophrenia and borderline personality disorder who presents to the emergency department endorsing really struggling and needing assistance with urges to self-harm, off medication and with active addiction including UDS positive for cannabis and blood alcohol of 140 on admission with active psychosis. The patient has a history of mental health issues and has been hospitalized multiple times. The patient has been on various medications but stopped taking them, feeling they were not necessary. The patient reported hearing voices and having visual hallucinations. The patient's condition seemed to improve slightly after receiving medication. 1. Encourage initiation of antipsychotic. He continues to be averse to an antipsychotic or any medication and reports that he wants to be connected with therapy. 2. Continue every 15 minute checks for safety. 3. Encourage individual, group and milieu therapy. 4. Encouraged sober living treatments after discharge at the highest level of care to which he is willing to commit. Involuntary Hold Information 2 96 Hour Hold: 96 Hour Involuntary Admission: No Attestations NPU 2 Medical Necessity Statement*: Inpatient hospitalization is medically necessary and the clinically appropriate intervention at this time. We will monitor medications and make changes and adjustments as indicated. Likely length of stay 2-3 days. Coding Level of Care Code Acute Code for [facility] Diagnoses Borderline personality disorder F60.3 Cannabis use disorder, severe, dependence F12.20 Suicidal ideation R45.851 Alcohol intoxication F10.929 Acute psychosis F23 Schizophrenia F20.9 Hallucinations R44.3 Marijuana abuse F12.10
[2023-11-01] MEDS: nicotine 2 mg Gum BUCCAL (19:15)
[2023-11-02] MEDS: trazodone 50 mg Tablet PO ×2 (01:47→20:01)
[2023-11-02 06:00] VITALS: BP 162/104; PULSE 84; RESP 18; O2SAT 98
[2023-11-02] MEDS: folic acid 1 mg Tablet PO (09:13)
[2023-11-02] MEDS: thiamine 100 mg Tablet PO (09:13)
[2023-11-02] MEDS: multivitamin therapeutic Tablet 1 TAB PO (09:13)
[2023-11-02 13:07] VITALS: BP 145/84; PULSE 98; RESP 16; TEMP 36.9; O2SAT 96
--- NOTE | 2023-11-02 13:49 | P.NPUPN_ITS ---
Subjective NPU 2 Subjective: Patient presented today reporting that he is unchanged and has not changed this position on medication or treatment in general. We discussed working with the social work team tomorrow and making sure he has appointments for aftercare and he can continue the conversation about medication with the outpatient team. But at this point he continues to deny a desire to start medication. He endorses only wanting therapy. We discussed discharge tomorrow. Mental Status Exam 2 MSE Comments: This is a well-nourished well-developed white male in hospital scrubs with limited grooming and eye contact. Hair dyed blonde on top. No abnormal movements. Cooperative with exam in mild distress. Speech was more normal rate and volume. Mood described as a little better, affect congruent. Thought process organized. Thought content: Patient denied suicidal or homicidal ideation, he endorsed less paranoia but no delusional content was noted, he endorses hearing voices less and denied visual hallucinations. The patient reported hearing voices that tell them to harm themselves, but they usually ignore these voices. The patient also reported feeling followed by ghosts and seeing things. The patient denied having any current thoughts of self-harm or suicide. The patient reports to be in a slightly better state than the previous day after receiving some medication. Attention and concentration were intact and memory appeared somewhat reliable but none were formally tested. He is alert and oriented x3. Attention and concentration were limited, impulse control is limited. Vitals/I&O/Wt Last Vital Signs Temp 98.4 F 11/02/23 13:07 Pulse 98 11/02/23 13:07 Resp 16 11/02/23 13:07 BP 145/84 11/02/23 13:07 Pulse Ox 96 11/02/23 13:07 O2 Del Method Room Air 11/02/23 13:07 Weight last 48 hrs Weight 102.569 kg Data NPU 10/29/23 01:02 10/29/23 00:14 A&P Assessment and plan (1) Borderline personality disorder: (2) Cannabis use disorder, severe, dependence: (3) Suicidal ideation: (4) Alcohol intoxication: (5) Acute psychosis: (6) Schizophrenia: (7) Hallucinations: (8) Marijuana abuse: Plan This is a 28-year-old white male with a significant history of addiction issues and psychiatric morbidity including recent diagnoses of schizophrenia and borderline personality disorder who presents to the emergency department endorsing really struggling and needing assistance with urges to self-harm, off medication and with active addiction including UDS positive for cannabis and blood alcohol of 140 on admission with active psychosis. The patient has a history of mental health issues and has been hospitalized multiple times. The patient has been on various medications but stopped taking them, feeling they were not necessary. The patient reported hearing voices and having visual hallucinations. The patient's condition seemed to improve slightly after receiving medication. 1. Encourage initiation of antipsychotic. He continues to be averse to an antipsychotic or any medication and reports that he wants to be connected with therapy. 2. Continue every 15 minute checks for safety. 3. Encourage individual, group and milieu therapy. 4. Encouraged sober living treatments after discharge at the highest level of care to which he is willing to commit. Involuntary Hold Information 2 96 Hour Hold: 96 Hour Involuntary Admission: No Attestations NPU 2 Medical Necessity Statement*: Inpatient hospitalization is medically necessary and the clinically appropriate intervention at this time. We will monitor medications and make changes and adjustments as indicated. Likely length of stay 1-2 days. Coding Level of Care Code Acute Code for [facility] Diagnoses Borderline personality disorder F60.3 Cannabis use disorder, severe, dependence F12.20 Suicidal ideation R45.851 Alcohol intoxication F10.929 Acute psychosis F23 Schizophrenia F20.9 Hallucinations R44.3 Marijuana abuse F12.10
[2023-11-02 20:29] VITALS: BP 142/85; PULSE 88; RESP 18; TEMP 36.8; O2SAT 98
[2023-11-02] MEDS: hyDROXYzine 25 mg Capsule 50 MG PO (22:08)
[2023-11-03 06:00] VITALS: BP 116/65; PULSE 64; RESP 17; O2SAT 100
--- NOTE | 2023-11-03 07:15 | P.NPUDS_ITS ---
Diagnoses at Discharge Discharge Diagnosis (1) Borderline personality disorder: Status: Acute (2) Cannabis use disorder, severe, dependence: Status: Acute (3) Suicidal ideation: Status: Acute (4) Alcohol intoxication: Status: Acute (5) Acute psychosis: Status: Resolved (6) Schizophrenia: Status: Acute (7) Hallucinations: Status: Resolved (8) Marijuana abuse: Status: Chronic Reason for Visit Reason for Visit: SI Involuntary Hold Information 96 Hour Hold: 96 Hour Involuntary Admission: No Mental Status Exam MSE Comments: This is a well-nourished well-developed white male in hospital scrubs with limited grooming and eye contact. Hair dyed blonde on top. No abnormal movements. Cooperative with exam in mild distress. Speech was more normal rate and volume. Mood described as a little better, affect congruent. Thought process organized. Thought content: Patient denied suicidal or homicidal ideation, he endorsed less paranoia but no delusional content was noted, he endorses hearing voices less and denied visual hallucinations. The patient reported hearing voices that tell them to harm themselves, but they usually ignore these voices. The patient also reported feeling followed by ghosts and seeing things. The patient denied having any current thoughts of self-harm or suicide. The patient reports to be in a slightly better state than the previous day after receiving some medication. Attention and concentration were intact and memory appeared somewhat reliable but none were formally tested. He is alert and oriented x3. Attention and concentration were limited, impulse control is limited. Discharge Data Studies Completed and Pending: Laboratory Results WBC 6.72 10^3/uL (3.2 9-11.43) 10/29/23 01:02 Corrected WBC Cancelled 10/29/23 00:14 RBC 5.23 10^6/uL (3.8 5-5.65) 10/29/23 01:02 Hgb 14.70 g/dL (11.27 -16.99) 10/29/23 01:02 Hct 45.0 % (37-53) 10/29/23 01:02 MCV 86.0 fl (82-101) 10/29/23 01:02 MCH 28.1 pg (27-33) 10/29/23 01:02 MCHC 32.7 g/dL (30-55) 10/29/23 01:02 RDW 12.8 % (12.1-15.1 ) 10/29/23 01:02 Plt Count 199 10^3/cmm (157 -399) 10/29/23 01:02 MPV 10.9 fL (7.4-10.4 ) H 10/29/23 01:02 Gran % Cancelled 10/29/23 00:14 Neut % (Auto) 63.4 % 10/29/23 01:02 Lymph % (Auto) 27.8 % 10/29/23 01:02 Rolette % (Auto) 6.5 % 10/29/23 01:02 Eos % (Auto) 1.6 % 10/29/23 01:02 Baso % (Auto) 0.4 % 10/29/23 01:02 Neut # (Auto) 4.25 10^3/uL (1.8 -7.7) 10/29/23 01:02 Lymph # (Auto) 1.9 10^3/uL (0.8- 4.8) 10/29/23 01:02 Rolette # (Auto) 0.4 10^3/uL (0.2- 0.9) 10/29/23 01:02 Eos # (Auto) 0.1 10^3/uL (0.0- 0.8) 10/29/23 01:02 Baso # (Auto) 0.0 10^3/uL (0.0- 0.1) 10/29/23 01:02 Absolute Gran (aut o) Cancelled 10/29/23 00:14 Nucleated RBC % (a uto) 0 % 10/29/23 01:02 Nucleated RBCs # 0.0 /100WBC 10/29/23 01:02 Sodium 141 mmol/L (136-1 45) 10/29/23 00:14 Potassium 4.1 mmol/L (3.5-5 .1) 10/29/23 00:14 Chloride 106 mmol/L (98-10 7) 10/29/23 00:14 Carbon Dioxide 20 mmol/L (22-29) L 10/29/23 00:14 Anion Gap 19.1 (5-19) H 10/29/23 00:14 BUN 5 mg/dL (6-20) L 10/29/23 00:14 Creatinine 0.6 mg/dL (0.7-1. 2) L 10/29/23 00:14 GFR Calculation 160.4 mL/min (90- 130) H 10/29/23 00:14 Glucose 97 mg/dL (65-115) 10/29/23 00:14 Calculated Osmolal ity 289 mOsm/kg (285- 295) 10/29/23 00:14 Calcium 8.9 mg/dL (8.5-10 .5) 10/29/23 00:14 Total Bilirubin 0.7 mg/dL (0.15-1 .2) 10/29/23 00:14 AST 31 U/L (0-40) 10/29/23 00:14 ALT 21 U/L (0-41) 10/29/23 00:14 Alkaline Phosphata se 73 U/L (40-130) 10/29/23 00:14 Total Protein 7.8 g/dL (6.6-8.7 ) 10/29/23 00:14 Albumin 4.6 g/dL (3.5-5.2 ) 10/29/23 00:14 Globulin 3.2 g/dL (1.3-4.6 ) 10/29/23 00:14 TSH 4.16 uIU/mL (0.27 -4.20) 10/29/23 00:14 Urine Color Yellow (Yellow) 10/29/23 00:54 Urine Appearance Clear (CLEAR) 10/29/23 00:54 Urine pH 7.5 (5-7) 10/29/23 00:54 Ur Specific Gravit y 1.015 (1.005-1.0 30) 10/29/23 00:54 Urine Protein Negative (Negati ve) 10/29/23 00:54 Urine Glucose (UA) Negative (Normal ) 10/29/23 00:54 Urine Ketones Negative (Negati ve) 10/29/23 00:54 Urine Blood Trace (Negative) A 10/29/23 00:54 Urine Nitrate Negative (Negati ve) 10/29/23 00:54 Urine Bilirubin Negative (Negati ve) 10/29/23 00:54 Urine Urobilinogen 1.0 mg/dL (Negati ve) 10/29/23 00:54 Ur Leukocyte Keri ase Negative (Negati ve) 10/29/23 00:54 Urine RBC 3-5 /hpf (0-2) 10/29/23 00:54 Urine WBC 0-5 /hpf (0-5) 10/29/23 00:54 Ur Squamous Epith Cells 0-5 /hpf (0-5) 10/29/23 00:54 Amorphous Sediment Not Reportable 10/29/23 00:54 Urine Bacteria None seen /hpf (N ONE) 10/29/23 00:54 Hyaline Casts 0-4 /lpf H 10/29/23 00:54 Salicylates < 0.3 mg/dL (3-10 ) L 10/29/23 00:14 Urine Opiates Scre en Negative ng/mL (N egative) 10/29/23 00:54 Acetaminophen < 5.0 ug/mL (10-3 0) L 10/29/23 00:14 Ur Barbiturates Sc reen Negative ng/mL (N egative) 10/29/23 00:54 Ur Phencyclidine S crn Negative ng/mL (N egative) 10/29/23 00:54 Ur Amphetamines Sc reen Negative ng/mL (N egative) 10/29/23 00:54 U Benzodiazepines Scrn Negative ng/mL (N egative) 10/29/23 00:54 Urine Cocaine Scre en Negative ng/mL (N egative) 10/29/23 00:54 U Marijuana (THC) Screen Positive ng/mL (N egative) H 10/29/23 00:54 Ethyl Alcohol 140 mg/dL (0-10) H 10/29/23 00:14 Vitals: Last Vital Signs Temp 98.2 F 11/02/23 20:29 Pulse 64 11/03/23 06:00 Resp 17 11/03/23 06:00 BP 116/65 11/03/23 06:00 Pulse Ox 100 11/03/23 06:00 O2 Del Method Room Air 11/02/23 13:07 Discharge Plan Discharge Patient Disposition: Home Condition: Stable Prescriptions: New Vitamin B-1 (mononitrate) 100 mg Tablet 100 mg PO DAILY 30 Days Qty: 30 1RF trazodone 50 mg Tablet 50 mg PO BEDTIME PRN (Reason: Sleep) 30 Days Qty: 30 1RF hydroxyzine pamoate 25 mg Capsule 50 mg PO Q6H PRN (Reason: Anxiety) 30 Days Qty: 120 1RF Discharge Orders: Discharge Order (Routine); Ordered 11/03/23 Ordered By: Davin Mcgovern Referrals: [facility] [Outside] - 11/05/23 7:30 am (Initial appointment with Patsy Roblero. ) Balbir Gordillo MD [Physician] - Discharge Diet: Regular Discharge Activity: Resume usual activity Patient Instructions: Opioid Safety Discharge Attestations NPU Time Spent in Discharge Care*: less than 30 min Specific Discharge Activities: Specific discharge activities: educating patient, discussing with insurance case manager/social workers/dc planners, documenting/other paperwork and evaluating patient/reviewing data Status at Discharge: Cognitive status at discharge: cognitively intact , Behavioral status at discharge: cooperative , Coding Level of Care Code Acute Code for [facility] Diagnoses Borderline personality disorder F60.3 Cannabis use disorder, severe, dependence F12.20 Suicidal ideation R45.851 Alcohol intoxication F10.929 Acute psychosis F23 Schizophrenia F20.9 Hallucinations R44.3 Marijuana abuse F12.10
[2023-11-03] MEDS: multivitamin therapeutic Tablet 1 TAB PO (08:13)
[2023-11-03] MEDS: thiamine 100 mg Tablet PO (08:14)
[2023-11-03] MEDS: folic acid 1 mg Tablet PO (08:14)
[2023-11-03 08:28] VITALS: BP 116/65; PULSE 64; RESP 17; O2SAT 100
== END 2023-11-03 08:48 | disposition home or self-care (01) | DRG 885 ==
LOC: ER 10-29 03:05 → NP 10-29 06:59
PROVIDERS: Admitting Provider Psychiatry & Neurology Psychiatry; Emergency Provider Emergency Medicine; Visit Provider Psychiatry & Neurology Psychiatry
DX: F20.9 Schizophrenia, unspecified (principal); R45.851 Suicidal ideations; F60.3 Borderline personality disorder; F12.20 Cannabis dependence, uncomplicated; F10.929 Alcohol use, unspecified with intoxication, unspecified; Y90.6 Blood alcohol level of 120-199 mg/100 ml
CPT/HCPCS: 36415; 80053; 80306; 80307; 81001; 84443; 85025; 93005; 97150; 97165; 99285

== ENCOUNTER 2024-01-30 05:29 | Inpatient (IN) | payer MEDICAID, SELFPAY ==
[2024-01-30] VITALS (11 sets, daily range): BP systolic 101–158; BP diastolic 56–114; PULSE 71–118; RESP 16–26; TEMP 36.6–36.9; O2SAT 92–100; BMI 30.7
--- NOTE | 2024-01-30 05:38 | ED_ITS ---
HPI - Altered Mental Status 2 General: Chief Complaint: Altered Mental Status Stated Complaint: ETOH Time Seen by Provider: 01/30/24 05:33 Source: patient, EMS and police Mode of arrival: EMS Limitations: no limitations History of Present Illness: 28-year-old male that has a history of d epression along with schizophrenia and alcohol abuse patient brought in by police and EMS tonight for paranoia. Patient been drinking alcohol mother called EMS because he had been having anger outburst around the house this morning. She states has been very erratic she has been bringing [employer] boards to cemeteries and manic. Patient here is angry and delusional will not give much information Related Data Previous Rx's Medication Instructions Recorded hydroxyzine pamoate 25 mg capsule 50 mg (2 x 25 mg) PO Q6H PRN 11/03/23 Anxiety 30 days #120 caps thiamine mononitrate (vit B1) 100 100 mg PO DAILY 30 days #30 tabs 11/03/23 mg tablet (Vitamin B-1 (mononitrate)) trazodone 50 mg tablet 50 mg PO BEDTIME PRN Sleep 30 days 11/03/23 #30 tabs Allergies Allergy/AdvReac Type Severity Reaction Status Date / Time No Known Allergies Allergy Verified 08/28/23 15:57 Review of Systems 2 General: Reports: ROS unobtainable due to medical condition and ROS unobtainable due to mental status PFS ED 2 PFSH: Medical History Marijuana abuse Family History Denies family history of Diabetes CAD (coronary artery disease) Hypertension Stroke Social History Smoking and tobacco/nicotine status: current every day tobacco/nicotine user e- cigarettes E-Cigarette Details: vaporizer device and without nicotine E-cig/vape details: Occasional use. Quit status (tobacco/nicotine): has quit using Year quit tobacco: 2008 Second hand smoke exposure: Yes Alcohol intake: former Substance/Drug Use: former Current occupational status: employed Current occupation: [employer] Current gender identity: Male Physical Exam 2 Const: GENERAL APPEARANCE: disheveled and odor of alcohol detected HENMT: COMMON NORMALS: normocephalic and atraumatic HEAD & SCALP: n ormocephalic and atraumatic Eye: COMMON NORMALS: Equal, round and reactive pupils present and EOMs intact bilaterally PUPIL: Yes Equal, round and reactive pupils present Neck/C-Spine: COMMON NORMALS: full ROM and supple Chest: COMMONS NORMALS: normal inspection of the chest Resp: COMMON NORMALS: normal respiratory effort, No retractions, No use of accessory muscles and clear to auscultation bilaterally AUSCULTATION: clear to auscultation bilaterally Cardio: COMMON NORMALS: regular rate, regular rhythm and No murmurs present (Cardio) RATE: regular rate RHYTHM: regular rhythm Extremity: COMMON NORMALS: normal to inspection and full ROM Neuro: COMMON NORMALS: moves all extremities and no focal motor deficits Psych: ATTITUDE: Yes paranoid, Yes bizarre and Yes agitated ACTIVITY/MOTOR BEHAVIOR: Yes psychomotor agitation MOOD & AFFECT: Yes irritable Skin: COMMON NORMALS: no rashes or lesions noted and no wounds GENERAL SKIN EXAM: no rashes or lesions noted Course 2 Vital Signs: Vital signs: Vital Signs Temperature 98 F 01/30/24 05:30 Pulse Rate 96 01/30/24 12:32 Respiratory Rate 16 01/30/24 06:26 Blood Pressure 116/68 01/30/24 12:32 Pulse Oximetry 98 01/30/24 12:32 Oxygen Delivery Me thod Room Air 01/30/24 12:32 MDM - Altered Mental Status Medical Decision Making Patient presents here with acute psychosis he is placed on a 96-hour hold he is medically cleared I spoke to psychiatrist will admit. Medical Records I reviewed the patient's medical records. Lab Data I reviewed the patient's lab results. 01/30/24 05:58 01/30/24 05:58 Laboratory Results WBC 8.10 10^3/uL (3.29-11.43) 01/30/24 05:58 RBC 5.45 10^6/uL (3.85-5.65) 01/30/24 05:58 Hgb 15.50 g/dL (11.27-16.99) 01/30/24 05:58 Hct 45.7 % (37-53) 01/30/24 05:58 MCV 83.9 fl (82-101) 01/30/24 05:58 MCH 28.4 pg (27-33) 01/30/24 05:58 MCHC 33.9 g/dL (30-55) 01/30/24 05:58 RDW 12.9 % (12.1-15.1) 01/30/24 05:58 Plt Count 213 10^3/cmm (157-399) 01/30/24 05:58 MPV 10.6 fL (7.4-10.4) H 01/30/24 05:58 Neut % (Auto) 56.2 % 01/30/24 05:58 Lymph % (Auto) 36.2 % 01/30/24 05:58 [place] % (Auto) 5.3 % 01/30/24 05:58 Eos % (Auto) 1.5 % 01/30/24 05:58 Baso % (Auto) 0.4 % 01/30/24 05:58 Neut # (Auto) 4.56 10^3/uL (1.8-7.7) 01/30/24 05:58 Lymph # (Auto) 2.9 10^3/uL (0.8-4.8) 01/30/24 05:58 [place] # (Auto) 0.4 10^3/uL (0.2-0.9) 01/30/24 05:58 Eos # (Auto) 0.1 10^3/uL (0.0-0.8) 01/30/24 05:58 Baso # (Auto) 0.0 10^3/uL (0.0-0.1) 01/30/24 05:58 Nucleated RBC % (auto) 0 % 01/30/24 05:58 Nucleated RBCs # 0.0 /100WBC 01/30/24 05:58 Sodium 143 mmol/L (136-145) 01/30/24 05:58 Potassium 3.6 mmol/L (3.5-5.1) 01/30/24 05:58 Chloride 104 mmol/L (98-107) 01/30/24 05:58 Carbon Dioxide 19 mmol/L (22-29) L 01/30/24 05:58 Anion Gap 23.6 (5-19) H 01/30/24 05:58 BUN 8 mg/dL (6-20) 01/30/24 05:58 Creatinine 0.6 mg/dL (0.7-1.2) L 01/30/24 05:58 GFR Calculation 160.4 mL/min (90-130) H 01/30/24 05:58 Glucose 84 mg/dL (65-115) 01/30/24 05:58 Calculated Osmolality 294 mOsm/kg (285-295) 01/30/24 05:58 Calcium 8.6 mg/dL (8.5-10.5) 01/30/24 05:58 Total Bilirubin 0.8 mg/dL (0.15-1.2) 01/30/24 05:58 AST 25 U/L (0-40) 01/30/24 05:58 ALT 18 U/L (0-41) 01/30/24 05:58 Alkaline Phosphatase 65 U/L (40-130) 01/30/24 05:58 Total Protein 7.9 g/dL (6.6-8.7) 01/30/24 05:58 Albumin 5.1 g/dL (3.5-5.2) 01/30/24 05:58 Globulin 2.8 g/dL (1.3-4.6) 01/30/24 05:58 TSH 7.98 uIU/mL (0.27-4.20) H 01/30/24 05:58 Salicylates < 0.3 mg/dL (3-10) L 01/30/24 05:58 Acetaminophen < 5.0 ug/mL (10-30) L 01/30/24 05:58 Ethyl Alcohol 200 mg/dL (0-10) H 01/30/24 05:58 All radiology interpretation(s) finalized by discharge Discharge Plan Discharge Patient Disposition: Admitted As Inpatient Clinical Impression: Alcohol intoxication, Acute psychosis Condition: Stable Coding Level of Care Code ED Porcelain Finisher for Ayesha Fwd Face to Face: Restrn/Seclusion Events leading up to initiation: Verbalizing threat to self or others and Combative/Striking out at staff or others Evaluation of patient's immediate situation: Signs of psychological distress Patient reaction since intervention applied: Continued attempts/displays harmful behavior Recent labs reviewed: Yes Review of medications: Yes Patient's current medical/behavioral condition: No new concerns since last ROS Need for restraint or seclusion is: Continued Attending notified: Yes
[2024-01-30] MEDS: diphenhydrAMINE 50 mg/mL SDV 1mL IM (05:40)
[2024-01-30] MEDS: haloperidol inj 5 mg/mL INJ 1 mL IM (05:40)
[2024-01-30] MEDS: LORazepam 2 mg/mL INJ 1 mL IM (05:41)
[2024-01-30 06:03] LABS: Basophils % 0.4 %; Eosinophils # 0.1 10^3/uL (0.0-0.8); Eosinophils % 1.5 %; Hematocrit 45.7 % (37-53); Lymphocytes # 2.9 10^3/uL (0.8-4.8); Lymphocytes % 36.2 %; Mean Corpuscular HGB Conc 33.9 g/dL (30-55); Mean Corpuscular Hemoglobin 28.4 pg (27-33); Mean Corpuscular Volume 83.9 fl (82-101); Mean Platelet Volume 10.6 fL (7.4-10.4); Monocytes # 0.4 10^3/uL (0.2-0.9); Monocytes % 5.3 %; Neutrophils # 4.56 10^3/uL (1.8-7.7); Neutrophils % 56.2 %; Nucleated Red Blood Cells % 0 %; Platelet Count 213 10^3/cmm (157-399); Red Blood Count 5.45 10^6/uL (3.85-5.65); Red Cell Distribution Width 12.9 % (12.1-15.1)
[2024-01-30 06:30] LABS: Alanine Aminotransferase 18 U/L (0-41); Albumin Level 5.1 g/dL (3.5-5.2); Alcohol Level 200 mg/dL (0-10); Alkaline Phosphatase 65 U/L (40-130); Anion Gap 23.6 (5-19); Aspartate Amino Transferase 25 U/L (0-40); Blood Urea Nitrogen 8 mg/dL (6-20); Calcium 8.6 mg/dL (8.5-10.5); Carbon Dioxide 19 mmol/L (22-29); Chloride 104 mmol/L (98-107); Creatinine Clr Calc Pharmacy 220.6193; Globulin 2.8 g/dL (1.3-4.6); Glomerular Filtration Rate 160.4 mL/min (90-130); Glucose 84 mg/dL (65-115); Osmolality Calculated 294 mOsm/kg (285-295); Potassium 3.6 mmol/L (3.5-5.1); Sodium 143 mmol/L (136-145); Thyroid Stimulating Hormone 7.98 uIU/mL (0.27-4.20); Total Bilirubin 0.8 mg/dL (0.15-1.2); Total Protein 7.9 g/dL (6.6-8.7)
[2024-01-30 06:31] LABS: Acetaminophen < 5.0 ug/mL (10-30); Salicylate < 0.3 mg/dL (3-10)
--- NOTE | 2024-01-30 06:35 | PC.NURSE ---
96 Hour Involuntary Hold Patient Rights have been read to the patient and a copy of the same has been given to him. Radio Repairer Derrick was present at bedside at the time of presentation of Rights.
--- NOTE | 2024-01-30 06:55 | PC.NURSE ---
took over pt care @ 1846 from GIGI Salazar
--- NOTE | 2024-01-30 07:16 | PC.NURSE ---
talked with patients mother she states that she would like to speak with psychiatrist, informed mother that she would have to discuss that with floor nurses once patient gets admitted somewhere or gets a room here. mother states 'my son had an MRI and it did not show any mental illnesses and you guys can surely get that somewhere.' also discussed that pt had to be restrained d/t his violent behavior after arrival, but is now asleep with even respirations and all four limbs are unrestrained at this time. this rn agreed to call pts mother when he gets acceptance/moved to a room.
--- NOTE | 2024-01-30 07:56 | PC.PHAR ---
Pt has [address] Mcgovern filled here at [facility] on 11/03/23-no other rx history
[2024-01-30 17:07] LABS: Amphetamines Screen Urine Negative (Negative); Barbiturates Screen Urine Negative (Negative); Benzodiazepines Screen Urine Positive (Negative); Cocaine Screen Urine Negative (Negative); Opiate Screen Urine Negative (Negative); PCP Screen Urine Negative (Negative); THC Screen Urine Positive (Negative)
[2024-01-30] MEDS: hyDROXYzine 25 mg Capsule 50 MG PO (18:12)
[2024-01-30] MEDS: trazodone 50 mg Tablet PO (21:25)
[2024-01-30] MEDS: OLANZapine 5 mg ODT PO (21:25)
[2024-01-31 04:00] VITALS: BP 126/81; PULSE 87; RESP 18; TEMP 36.4; O2SAT 98
[2024-01-31 08:00] VITALS: BP 141/75; PULSE 88; RESP 16; TEMP 36.4; O2SAT 99
[2024-01-31] MEDS: thiamine 100 mg Tablet PO (08:55)
[2024-01-31] MEDS: multivitamin therapeutic Tablet 1 TAB PO (08:55)
[2024-01-31] MEDS: folic acid 1 mg Tablet PO (08:55)
[2024-01-31] MEDS: flu vacc pf 24-25 (6 mos+) SYRINGE 45 MCG IM (08:55)
--- NOTE | 2024-01-31 10:24 | PC.NURSE ---
Morning assessment During morning assessment, patient was calm and cooperative with appropriate affect. Patient denies SI, HI, AVH. Patient says that he does have anxiety and depression at times. Patient said that when he has these feelings, he exercises and this helps him to feel better. Patient says that his only concern right now is being able to find his phone when he is discharged. Patient said that when he was with this new friend, the jessica told him to jud his phone.
--- NOTE | 2024-01-31 11:00 | W.PM.NPUH&PS ---
Providers/Chief Complaint Admitting Physician: Davin Mcgovern MD Chief Complaint: ETOH HPI NPU History of Present Illness Ivan Dover is a 28 year old male who presented to the emergency department with the following report: Chief Complaint: Altered Mental Status Stated Complaint: ETOH Time Seen by Provider: 01/30/24 05:33 Source: patient, EMS and police Mode of arrival: EMS Limitations: no limitations History of Present Illness: 28-year-old male that has a history of depression along with schizophrenia and alcohol abuse patient brought in by police and EMS tonight for paranoia. Patient been drinking alcohol mother called EMS because he had been having anger outburst around the house this morning. She states has been very erratic she has been bringing Ouija boards to cemeteries and manic. Patient here is angry and delusional will not give much information He was admitted to the neuropsychiatric unit for definitive treatment of those issues. He is known to [facility] psychiatry services through inpatient and outpatient services. His last outpatient visit was December 2022 and his last inpatient stay was in October of this year. An excerpt of that discharge summary is included below for context. His UDS was positive for cannabis and benzodiazepines which were likely a confounding finding from medications given in the emergency department. Things have been going well for the last almost 3 months since he was discharged. He reports that he felt he was doing really well but then last night when he went home from being out with people that he knows she got extremely angry in a way that he could explain and felt that he should come to the hospital to be checked out. He denied that he really ever took the medication when he was home. We discussed him considering the risks, benefits and alternatives of some of these antipsychotics and mood stabilizers and he understood and agreed to proceed as is documented in this note. Per his 11/03/2023 [facility] inpatient psychiatric discharge summary: Discharge Diagnosis (1) Borderline personality disorder: Status: Acute (2) Cannabis use disorder, severe, dependence: Status: Acute (3) Suicidal ideation: Status: Resolved (4) Alcohol intoxication: Status: Acute (5) Acute psychosis: Status: Resolved (6) Schizophrenia: Status: Acute (7) Hallucinations: Status: Resolved (8) Marijuana abuse: Status: Inactive Reason for Visit Reason for Visit: SI Brief History: History of Present Illness Ivan Dover is a 28 year old male who presented to the emergency department with the following report: Chief Complaint: Psychiatric Symptoms Stated Complaint: SI Time Seen by Provider: 10/28/23 23:48 History of Present Illness: 28-year-old man with history of depression who presents to the emergency room by ambulance with suicidal thoughts. He states he was thinking about cutting himself. Apparently has been drinking and smoking some marijuana. He walks into the emergency room. No focal motor deficits. No specific plan at this time. He was admitted to the neuropsychiatric unit for definitive treatment of those issues. He is known to the system through inpatient and outpatient services and an excerpt of his last hospitalization is included below for history and context. After that hospitalization he did follow-up with [facility] with good adherence until December 2022. He presents today reporting: Chief complaint The patient was brought to the hospital after an episode of anger and yelling in public. The patient reported feeling upset and hearing voices that became overwhelming. History of the present complaint The patient reported an incident that led to his hospitalization. He mentioned that he became upset and started yelling in a public area, which resulted in the police being called. The patient did not provide specific details about the trigger of his emotional outburst. This is his fourth hospitalization, with the last one occurring in 2019. The patient had been receiving outpatient care at [facility] under Dr. Branch until sometime last year. After that, his mother arranged for him to see another doctor at [facility]. However, he stopped taking his medication after he stopped seeing Dr. Cline. He did not continue his medication even after starting treatment at [facility]. The patient reported that he felt he did not need the medication anymore. The patient admitted to using cannabis and THC regularly, and he recently started drinking alcohol again after a period of abstinence. He denied using any other drugs recently or long-term, and he has never been to rehab or had any charges related to drug use. The patient reported hearing voices, which he described as overwhelming and constant. He stated that these voices were present even when he was on medication and seeing Dr. Branch. He has been on various medications in the past, including Abilify, Geodon, Zyprexa, Seroquel, and Latuda, but none of these medications have completely alleviated his symptoms. The patient was brought to the hospital after an episode of anger and yelling, which he attributed to the voices becoming out of control. Since his admission, he has been given some medication, which he felt was helpful. He acknowledged that while the voices do not completely go away, medication might help manage his symptoms. Currently, the patient reported feeling a little better than the previous day. He denied having any thoughts of self-harm or suicide, but he mentioned that the voices often tell him to harm himself, which he usually ignores. He also reported experiencing paranoia, specifically feeling like ghosts are following him. In addition to hearing voices, the patient also reported seeing things. Mental health history The patient has a history of multiple hospitalizations, with this being the fourth one. The last hospitalization was in 2019. The patient has been to this hospital three times and once to [place]. The patient was previously under the care of Dr. Branch at [facility] and later at [facility]. The patient has been on various medications including Abilify, Geodon, Zyprexa, Seroquel, and Latuda. However, the patient stopped taking medication after ceasing to see Dr. Cline, feeling that they didn't need it. The patient reported that the voices never went away even when on medication. Social history The patient reported using THC and cannabis regularly. The patient started drinking alcohol again recently after a period of abstinence. The patient denied any use of other drugs or having any problems with substances like methamphetamine or opiates. The patient has never been to rehab and has no charges related to drug use. Per his 12/29/2019 [facility] inpatient psychiatric discharge summary: History of Present Illness Ivan Dover is a 24 year old male who presented to the emergency department with the following report: Chief Complaint: Psychiatric Symptoms Stated Complaint: INTENTIONAL OVERDOSE Time Seen by Provider: 12/23/19 07:53 History of Present Illness: HPI Narrative: 24-year-old male patient presents to the emergency department via EMS. Patient was discharged from neuropsychiatric unit on 12/21/2019. He reports 1 hour prior to arrival, at approximately 630 to 7 AM, took 15 to 16 tablets of 2 mg Risperdal. Prescribed Risperdal from [facility], 12/17/2019. He reports chronic depression, stress. He denies life changing or stressful event that led to intentional overdose. He reports auditory hallucinations, states voices are telling him to kill himself. He reports voices have been present since November. He has battled depression since age 14 with previous self-harm of cutting himself. He lives with his mother. States his mother was aware of what occurred this morning and called 911 for assistance. Associated symptoms: Reports auditory hallucinations, depression and suicidal ideation; Deny visual hallucinations or homicidal ideation He was admitted to the neuropsychiatric unit for the definitive treatment of those issues. He presents today reporting that he went home with the greatest of intentions and things just did not work out. He endorsed the part of the situation is that the voices have become untenable. And even no depression has been noted he reports the real issue is the voices are becoming so unmanageable that he feels the suicidal thinking and does feel a little bit of a dip in his mood. He reports that the voices got really bad about a year to a year and a half ago but acknowledges that the voices were there even before and he had ways to ignore them. Is just that about a year and a half ago it became overwhelming. He denies any other trials of medication other than the Risperdal and he reports that the voices never really dissipated. We discussed the risks, benefits and alternatives of initiating Abilify 10 mg p.o. every morning and he understood and agreed to proceed as is documented in this note. We reviewed his previous inpatient evaluation from last week and he denies any substantive changes and so an excerpt of that note is included below. Per his [facility] inpatient eval 12/18/2019: History of Present Illness Ivan Dover is a 24 year old male Ivan Dover is a 24-year-old male with no prior psychiatric history who was brought to the emergency room with the complaint described above. He says that he occasionally has suicidal thoughts. However he has no intent or plan. He does not seem to be particularly depressed. He spends his days playing his guitar and writing music. He feels that he is pretty good at playing guitar and writing music and sometimes will even play his guitar for a friend. He denies being depressed. However he does report the presence of auditory hallucinations. He hears more than 1 voice. There is no command nature to the hallucinations. He cannot identify any voices. He cannot tell whether they are coming from inside of his head or outside of his head. He does not find them typically troubling and is not too concerned about them. On interview today, he is not too concerned about much of anything. He admits that he smokes marijuana and that it helps relax him. He is guarded around how much he smokes. He claims to not really smoke very much. He says that he last went a whole day without smoking a few days ago. Other than getting rid of the auditory hallucinations, he has no other goals. Appetite and sleep are good by his report Laboratory Tests 12/16/2009/02/20 [id number]:[id number] Urine Opiates Screen Negative Ur Barbiturates Screen Negative Ur Phencyclidine Scrn Negative Ur Amphetamines Screen Negative U Benzodiazepines Scrn Negative Urine Cocaine Screen Negative U Marijuana (THC) Screen Positive H Ethyl Alcohol < 10 Past psychiatric history: He has no history of inpatient psychiatric treatment, outpatient psychiatric treatment. He did see a counselor for a while but does not really want to talk about that. Family psychiatric history: Patient states that there is nobody else in the family that has been treated for mental health problems. Nobody in the family has experienced auditory hallucinations. Nobody else in the family has an alcohol or substance abuse problem. Social history: The patient currently lives with his mother. His mother is employed full-time. The patient is unemployed. The patient has no intention of finding employment. I am not really very good at that kind of thing. He is a high school graduate. He was attending the local college and planning on a career in game design. He stopped attending school 4 years ago. He has no plans to return. He says that he has friends locally but does not name any of them. He describes no activities in which he engages with those friends. He has 2 brothers and a sister. He says he does not see them much. Medical history Records indicate that he is in good medical health. He is on no medications. Laboratory evaluation show that he has a mild elevation in RBC and his nonfasting blood sugar was 129. His urine drug screen was positive for marijuana. Otherwise the UDS was negative. Hospital Course He slowly acclimated to the individual, group and milieu therapies provided. He presented with psychosis and active addiction. We offered the initiation of an antipsychotic but he refused and did show improvement each day. We discussed the possibility that his psychotic symptoms were connected to his marijuana use and expressed concerns about his alcohol use contributing to his poor functioning. He was willing to take Vistaril and trazodone for anxiety and insomnia respectively. He also was willing to take the thiamine given his alcohol use disorder. He was open to referral to therapy but was resistant to an antipsychotic at this time. He worked with the social work team for outpatient referrals and appointments. He had significant improvement during the stay. He was able to contract for safety outside the hospital prior to discharge. During the hospitalization, the patient had routine laboratory studies which were within normal limits except for a few outliers. Additionally, there was a general medical evaluation which was also within normal limits and revealed no new acute processes. Hospital Course At the time of discharge, he denied psychosis or lethality, and psychosis was resolving. Mood and anxiety were well managed. The patient endorsed a plan to avoid all drugs of abuse and follow up with the aftercare recommendations of the treatment team. The patient was evaluated and deemed to be absent credible lethality and had achieved the maximum benefit from an inpatient hospitalization, and so was discharged. Meds NPU Home Medications Medication Instructions Recorded Confirmed Last Taken Type hydroxyzine pamoate 25 mg capsule 50 mg (2 x 25 mg) PO Q6H PRN 11/03/23 01/30/24 Unknown Rx Anxiety 30 days #120 caps thiamine mononitrate (vit B1) 100 100 mg PO DAILY 30 days #30 tabs 11/03/23 01/30/24 Unknown Rx mg tablet (Vitamin B-1 (mononitrate)) trazodone 50 mg tablet 50 mg PO BEDTIME PRN Sleep 30 days 11/03/23 01/30/24 Unknown Rx #30 tabs Allergies Allergy/AdvReac Type Severity Reaction Status Date / Time No Known Allergies Allergy Verified 08/28/23 15:57 PFS NPU PFSH: Medical History Marijuana abuse Family History Denies family history of Diabetes CAD (coronary artery disease) Hypertension Stroke Social History Smoking and tobacco/nicotine status: current every day tobacco/nicotine user e-cigarettes E-Cigarette Details: vaporizer device and without nicotine E-cig/vape details: Occasional use. Quit status (tobacco/nicotine): has quit using Year quit tobacco: 2008 Second hand smoke exposure: Yes Alcohol intake: former Substance/Drug Use: former Current occupational status: employed Current occupation: [employer] Current gender identity: Male Mental Status Exam MSE Comments: This is an overweight versus obese white male in hospital scrubs with limited grooming and eye contact. Head mostly shaved. No abnormal movements except for psychomotor retardation. Cooperative with exam in mild to moderate distress. Speech was decreased rate and volume. Mood described as okay but I am not sure what really happened, affect congruent. Thought process organized. Thought content: Patient denied suicidal or homicidal ideation, there were no delusions reported and no delusional content was noted, he denied auditory or visual hallucinations. The patient reported just being overwhelmed with anger when he went home last night. Attention and concentration were mostly intact and memory was somewhat reliable but none were formally tested. He is alert and oriented x3. Attention and concentration were limited, impulse control is limited versus impaired. Vitals/I&O/Wt Last Vital Signs Temp 97.6 F 01/31/24 08:00 Pulse 88 01/31/24 08:00 Resp 16 01/31/24 08:00 BP 141/75 01/31/24 08:00 Pulse Ox 99 01/31/24 08:00 O2 Del Method Room Air 01/31/24 08:00 Weight last 48 hrs Weight 99.79 kg Data NPU 01/30/24 05:58 01/30/24 05:58 A&P Assessment and plan (1) Borderline personality disorder: (2) Cannabis use disorder, severe, dependence: (3) Suicidal ideation: (4) Alcohol intoxication: (5) Acute psychosis: (6) Schizophrenia: (7) Hallucinations: (8) Marijuana abuse: Plan This is a 28-year-old white male with a significant history of addiction issues and psychiatric morbidity including recent diagnoses of schizophrenia and borderline personality disorder who had presented to the hospital about 3 months ago endorsing really struggling and needing assistance with urges to self-harm, off medication and with active addiction including UDS positive for cannabis and blood alcohol of 140 now presents with continued addiction with positive cannabis and alcohol level 200 on this admission with reports of bizarre activities including going to the cemetery with a [employer] board. The patient has a history of mental health issues and has been hospitalized multiple times. He denied a likely decompensation reporting that he was feeling fine until he went home from some social interaction and found himself angry and [id number] which led to him coming to the hospital. 1. Encourage initiation of antipsychotic. He continues to be resistant to that plan. But that he would consider. 2. Continue every 15 minute checks for safety. 3. Encourage individual, group and milieu therapy. 4. Encouraged sober living treatments after discharge at the highest level of care to which he is willing to commit. Involuntary Hold Information 96 Hour Hold: 96 Hour Involuntary Admission: Yes 96 Hour Hold Ending Date: 02/05/24 96 Hour Hold Ending Time: 06:19 Other Hold: Hold End Date: 02/05/24 Attestations U Medical Necessity Statement*: Inpatient hospitalization is medically necessary and the clinically appropriate intervention at this time. We will monitor medications and make changes and adjustments as indicated. He will be in the hospital for over 2 midnights. Likely length of stay 4 to 6 days. Coding Level of Care Code Acute Code for [facility] Fwd Diagnoses Borderline personality disorder F60.3 Cannabis use disorder, severe, dependence F12.20 Suicidal ideation R45.851 Alcohol intoxication F10.929 Acute psychosis F23 Schizophrenia F20.9 Hallucinations R44.3 Marijuana abuse F12.10
[2024-01-31 11:50] VITALS: BP 118/90; PULSE 85; RESP 18; TEMP 36.4; O2SAT 99
[2024-01-31 16:00] VITALS: BP 96/57; PULSE 74; RESP 16; TEMP 36.7; O2SAT 98
[2024-01-31 20:00] VITALS: BP 137/85; PULSE 106; RESP 18; TEMP 37.1; O2SAT 95
[2024-01-31] MEDS: trazodone 50 mg Tablet PO ×2 (20:44→23:56)
[2024-01-31] MEDS: OLANZapine 5 mg ODT PO (20:44)
[2024-01-31] MEDS: hyDROXYzine 25 mg Capsule 50 MG PO (23:56)
[2024-02-01] VITALS (7 sets, daily range): BP systolic 100–155; BP diastolic 69–89; PULSE 66–98; RESP 16–18; TEMP 36.4–36.9; O2SAT 97–98
[2024-02-01] MEDS: multivitamin therapeutic Tablet 1 TAB PO (08:58)
[2024-02-01] MEDS: thiamine 100 mg Tablet PO (08:58)
[2024-02-01] MEDS: folic acid 1 mg Tablet PO (08:58)
--- NOTE | 2024-02-01 16:05 | P.NPUPN_ITS ---
Subjective NPU 2 Subjective: 28-year-old male admitted involuntarily with schizophrenia and borderline personality disorder positive for cannabis and benzodiazepines who stated that he had simply been extremely angry for no reason. He had stated that he had problems with managing his anger before. He stated that he had a previous history of self-injurious behavior. He had reported having heard voices for several years. He had reported that he had never found medications to help him with his voices despite taking medications routinely. The patient had reported that the voices had been more distracting to him over the past few weeks but described them for several years. Mental Status Exam 2 MSE Comments: This is an overweight versus obese white male in hospital scrubs with limited grooming and eye contact. Head mostly shaved. No abnormal movements except for psychomotor retardation. Cooperative with exam in mild to moderate distress. Speech was decreased rate and volume. Mood described as allright. His affect was constricted. Thought process organized. Thought content: Patient denied suicidal or homicidal ideation, there were no delusions reported and no delusional content was noted, he denied auditory or visual hallucinations. The patient reported just being overwhelmed with anger when he went home last night. Attention and concentration were mostly intact and memory was somewhat reliable but none were formally tested. He is alert and oriented x3. Attention and concentration were limited, impulse control is limited versus impaired. Vitals/I&O/Wt Last Vital Signs Temp 97.6 F 02/01/24 12:00 Pulse 84 02/01/24 12:00 Resp 18 02/01/24 12:00 BP 128/83 02/01/24 12:00 Pulse Ox 98 02/01/24 12:00 O2 Del Method Room Air 02/01/24 12:00 Weight last 48 hrs Weight 104.054 kg Data NPU 01/30/24 05:58 01/30/24 05:58 A&P Assessment and plan (1) Borderline personality disorder: (2) Cannabis use disorder, severe, dependence: (3) Suicidal ideation: (4) Alcohol intoxication: (5) Acute psychosis: (6) Schizophrenia: (7) Hallucinations: (8) Marijuana abuse: Plan This is a 28-year-old white male with a significant history of addiction issues and psychiatric morbidity including recent diagnoses of schizophrenia and borderline personality disorder who had presented to the hospital about 3 months ago endorsing really struggling and needing assistance with urges to self-harm, off medication and with active addiction including UDS positive for cannabis and blood alcohol of 140 now presents with continued addiction with positive cannabis and alcohol level 200 on this admission with reports of bizarre activities including going to the cemetery with a [employer] board. The patient has a history of mental health issues and has been hospitalized multiple times. He denied a likely decompensation reporting that he was feeling fine until he went home from some social interaction and found himself angry and [id number] which led to him coming to the hospital. 1. Encourage initiation of antipsychotic. He continues to be resistant to that plan. But that he would consider. 2. Continue every 15 minute checks for safety. CIWA protocol. 3. Encourage individual, group and milieu therapy. 4. Encouraged sober living treatments after discharge at the highest level of care to which he is willing to commit. Involuntary Hold Information 2 96 Hour Hold: 96 Hour Involuntary Admission: Yes 96 Hour Hold Ending Date: 02/05/24 96 Hour Hold Ending Time: 06:19 Other Hold: Hold End Date: 02/05/24 Attestations NPU 2 Medical Necessity Statement*: Inpatient hospitalization is medically necessary and the clinically appropriate intervention at this time. We will monitor medications and make changes and adjustments as indicated. Likely length of stay 4 to 6 days. Coding Level of Care Code Acute Code for [facility] Fwd Diagnoses Borderline personality disorder F60.3 Cannabis use disorder, severe, dependence F12.20 Suicidal ideation R45.851 Alcohol intoxication F10.929 Acute psychosis F23 Schizophrenia F20.9 Hallucinations R44.3 Marijuana abuse F12.10
[2024-02-01] MEDS: trazodone 50 mg Tablet PO (23:32)
[2024-02-02] MEDS: hyDROXYzine 25 mg Capsule 50 MG PO ×2 (02:57→19:45)
[2024-02-02 04:00] VITALS: BP 134/81; PULSE 76; RESP 16; TEMP 36.5; O2SAT 97
[2024-02-02 08:00] VITALS: BP 92/69; PULSE 77; RESP 16; TEMP 36.6; O2SAT 99
[2024-02-02] MEDS: thiamine 100 mg Tablet PO (08:27)
[2024-02-02] MEDS: multivitamin therapeutic Tablet 1 TAB PO (08:27)
[2024-02-02] MEDS: folic acid 1 mg Tablet PO (08:27)
[2024-02-02 09:42] VITALS: RESP 16
[2024-02-02 12:31] VITALS: BP 142/90
--- NOTE | 2024-02-02 13:21 | PC.NURSE ---
NEW ORDERS RECEIVED FROM DR. MCQUEEN TO START INVEGA 6MG PO DAILY WITH FIRST DOSE TO BE GIVEN NOW. ORDERS PLACED AND EDUCATION PROVIDED TO PT. VERBALIZED UNDERSTANDING.
[2024-02-02] MEDS: paliperidone ER 6 mg Tablet PO (13:29)
[2024-02-02 14:00] VITALS: BP 140/87; PULSE 72; RESP 17; O2SAT 98
--- NOTE | 2024-02-02 16:00 | P.NPUPN_ITS ---
Subjective NPU 2 Subjective: 28-year-old male admitted involuntarily with schizophrenia and borderline personality disorder positive for cannabis and benzodiazepines who stated that he had simply been extremely angry for no reason. Patient had reported continued hallucinations for several years. He had reported that his voices would often be worse when he was around people. He had reported having thoughts that had been distracting to him and stated that he heard voices particularly when in the presence of many others. He had reported at times feeling as though he could hear the voice of others despite them not saying anything to him. He had been told by his coworkers to keep his mouth shot and reports that this had been extremely disturbing for him. He had reported that these voices had even when the patient was not using alcohol. He had reported continued use of cannabis for several years stating that it had been a means of getting him to quiet the voices although he had acknowledged that his hallucinations had persisted even when smoking marijuana. The patient had endorsed a lack of compliance with his Invega and stated that he might be interested in considering taking a medication on a monthly basis as he had stated that he had felt uncomfortable having a month supply of pills out of concern that he may overdose on them as he had done previously on Risperdal. Mental Status Exam 2 MSE Comments: This is an overweight versus obese white male in hospital scrubs with limited grooming and eye contact. Head mostly shaved. No abnormal movements except for psychomotor retardation. Cooperative with exam in mild to moderate distress. Speech was decreased rate and volume. Mood described as stressed. His affect was blunted. Thought process was linear and organized. Thought content: Patient denied suicidal or homicidal ideation, There were no delusions reported and no delusional content was noted, He had endorsed auditory hallucinations and recent visual hallucinations of ghosts. Attention and concentration were mostly intact and memory was somewhat reliable but none were formally tested. He is alert and oriented x3. Attention and concentration were limited, impulse control is limited versus impaired. Vitals/I&O/Wt Last Vital Signs Temp 97.8 F 02/02/24 08:00 Pulse 72 02/02/24 14:00 Resp 17 02/02/24 14:00 BP 140/87 02/02/24 14:00 Pulse Ox 98 02/02/24 14:00 O2 Del Method Room Air 02/01/24 12:00 Weight last 48 hrs Weight 104.054 kg Data NPU 01/30/24 05:58 01/30/24 05:58 A&P Assessment and plan (1) Acute psychosis: (2) Borderline personality disorder: (3) Cannabis use disorder, severe, dependence: (4) Suicidal ideation: (5) Alcohol intoxication: (6) Schizophrenia: (7) Hallucinations: (8) Marijuana abuse: Plan This is a 28-year-old white male with a significant history of addiction issues and psychiatric morbidity including recent diagnoses of schizophrenia and borderline personality disorder who had presented to the hospital about 3 months ago endorsing really struggling and needing assistance with urges to self-harm, off medication and with active addiction including UDS positive for cannabis and blood alcohol of 140 now presents with continued addiction with positive cannabis and alcohol level 200 on this admission with reports of bizarre activities including going to the cemetery with a [employer] board. The patient has a history of mental health issues and has been hospitalized multiple times. He denied a likely decompensation reporting that he was feeling fine until he went home from some social interaction and found himself angry and [id number] which led to him coming to the hospital. 1. Continue Invega 6mg at night to target aggression and psychosis. 2. Continue every 15 minute checks for safety. CIWA protocol. 3. Encourage individual, group and milieu therapy. 4. Encouraged sober living treatments after discharge at the highest level of care to which he is willing to commit. Involuntary Hold Information 2 96 Hour Hold: 96 Hour Involuntary Admission: Yes 96 Hour Hold Ending Date: 02/05/24 96 Hour Hold Ending Time: 06:19 Other Hold: Hold End Date: 02/05/24 Attestations NPU 2 Medical Necessity Statement*: Inpatient hospitalization is medically necessary and the clinically appropriate intervention at this time. We will monitor medications and make changes and adjustments as indicated. Likely length of stay 4 to 6 days. Coding Level of Care Code Acute Code for [facility] Fwd Diagnoses Acute psychosis F23 Borderline personality disorder F60.3 Cannabis use disorder, severe, dependence F12.20 Suicidal ideation R45.851 Alcohol intoxication F10.929 Schizophrenia F20.9 Hallucinations R44.3 Marijuana abuse F12.10
[2024-02-02] MEDS: trazodone 50 mg Tablet PO (19:45)
[2024-02-02 19:59] VITALS: BP 155/95; PULSE 84; RESP 18; TEMP 36.6; O2SAT 98
[2024-02-03 05:26] VITALS: BP 125/89; PULSE 88; RESP 18; TEMP 36.4; O2SAT 97
[2024-02-03] MEDS: thiamine 100 mg Tablet PO (08:08)
[2024-02-03] MEDS: multivitamin therapeutic Tablet 1 TAB PO (08:08)
[2024-02-03] MEDS: folic acid 1 mg Tablet PO (08:08)
[2024-02-03] MEDS: paliperidone ER 6 mg Tablet PO (08:08)
[2024-02-03] MEDS: paliperidone palmitate 234 mg Syringe IM (12:22)
--- NOTE | 2024-02-03 12:23 | PC.NURSE ---
Administered 234 Invega Sustenna IM to Right Deltoid, pt tolerated well.
[2024-02-03 14:00] VITALS: BP 112/60; PULSE 89; RESP 16; TEMP 36.9; O2SAT 98
--- NOTE | 2024-02-03 16:02 | P.NPUPN_ITS ---
Subjective NPU 2 Subjective: 28-year-old male admitted involuntarily with schizophrenia and borderline personality disorder positive for cannabis and benzodiazepines who stated that he had simply been extremely angry for no reason. The patient had reported that the hallucinations were better. He had stated that he would be agreeable to considering the use of an once a month intramuscular Invega to help with managing agitation and his hallucinations. He had reported that the voices it appeared quieter. He had reported feeling less paranoid on the Invega. He had acknowledged having difficulties with managing and maintaining compliance with his medications by himself. Patient was redirectable on the milieu with no acts of aggression noted. Mental Status Exam 2 MSE Comments: This is an overweight versus obese white male in hospital scrubs with limited grooming and eye contact. Head mostly shaved. No abnormal movements except for psychomotor retardation. He was cooperative with exam in mild to moderate distress. Speech was decreased rate and volume. Mood described as okay. His affect was blunted and mood incongruent. Thought process was linear and organized. Thought content: Patient denied suicidal or homicidal ideation, There were no delusions reported and no delusional content was noted, He had endorsed auditory hallucinations that were described as quieter and recent visual hallucinations of ghosts. Attention and concentration were mostly intact and memory was somewhat reliable but none were formally tested. He is alert and oriented x3. Attention and concentration were limited, impulse control is limited versus impaired. Vitals/I&O/Wt Last Vital Signs Temp 98.5 F 02/03/24 14:00 Pulse 89 02/03/24 14:00 Resp 16 02/03/24 14:00 BP 112/60 02/03/24 14:00 Pulse Ox 98 02/03/24 14:00 O2 Del Method Room Air 02/03/24 14:00 Data NPU 01/30/24 05:58 01/30/24 05:58 A&P Assessment and plan (1) Acute psychosis: (2) Borderline personality disorder: (3) Cannabis use disorder, severe, dependence: (4) Suicidal ideation: (5) Alcohol intoxication: (6) Schizophrenia: (7) Hallucinations: (8) Marijuana abuse: Plan This is a 28-year-old white male with a significant history of addiction issues and psychiatric morbidity including recent diagnoses of schizophrenia and borderline personality disorder who had presented to the hospital about 3 months ago endorsing really struggling and needing assistance with urges to self-harm, off medication and with active addiction including UDS positive for cannabis and blood alcohol of 140 now presents with continued addiction with positive cannabis and alcohol level 200 on this admission with reports of bizarre activities including going to the cemetery with a [employer] board. The patient has a history of mental health issues and has been hospitalized multiple times. He denied a likely decompensation reporting that he was feeling fine until he went home from some social interaction and found himself angry and [id number] which led to him coming to the hospital. 1. Continue Invega 6mg at night to target aggression and psychosis. Invega sustenna 234mg IM given today. 2. Continue every 15 minute checks for safety. CIWA protocol. 3. Encourage individual, group and milieu therapy. 4. Encouraged sober living treatments after discharge at the highest level of care to which he is willing to commit. Involuntary Hold Information 2 96 Hour Hold: 96 Hour Involuntary Admission: Yes 96 Hour Hold Ending Date: 02/05/24 96 Hour Hold Ending Time: 06:19 Other Hold: Hold End Date: 02/05/24 Attestations NPU 2 Medical Necessity Statement*: Inpatient hospitalization is medically necessary and the clinically appropriate intervention at this time. We will monitor medications and make changes and adjustments as indicated. Likely length of stay 1-2 days. Coding Level of Care Code Acute Code for g Fwd Diagnoses Acute psychosis F23 Borderline personality disorder F60.3 Cannabis use disorder, severe, dependence F12.20 Suicidal ideation R45.851 Alcohol intoxication F10.929 Schizophrenia F20.9 Hallucinations R44.3 Marijuana abuse F12.10
[2024-02-03] MEDS: trazodone 50 mg Tablet PO (20:08)
[2024-02-03] MEDS: hyDROXYzine 25 mg Capsule 50 MG PO (20:08)
[2024-02-03 20:25] VITALS: BP 130/81; PULSE 105; RESP 18; TEMP 36.7; O2SAT 96
[2024-02-04 06:00] VITALS: BP 110/65; PULSE 88; RESP 16; TEMP 36.5; O2SAT 98
[2024-02-04] MEDS: folic acid 1 mg Tablet PO (08:19)
[2024-02-04] MEDS: paliperidone ER 6 mg Tablet PO (08:19)
[2024-02-04] MEDS: thiamine 100 mg Tablet PO (08:19)
[2024-02-04] MEDS: multivitamin therapeutic Tablet 1 TAB PO (08:19)
[2024-02-04 12:03] VITALS: BP 110/65; PULSE 88; RESP 16; TEMP 36.5; O2SAT 98
[2024-02-04 14:00] VITALS: BP 134/78; PULSE 100; RESP 16; TEMP 37.3; O2SAT 96
--- NOTE | 2024-02-04 15:52 | P.NPUDS_ITS ---
Diagnoses at Discharge Discharge Diagnosis (1) Acute psychosis: Status: Resolved (2) Borderline personality disorder: Status: Acute (3) Cannabis use disorder, severe, dependence: Status: Acute (4) Suicidal ideation: Status: Resolved (5) Alcohol intoxication: Status: Acute (6) Schizophrenia: Status: Acute (7) Hallucinations: Status: Resolved (8) Marijuana abuse: Status: Inactive Reason for Visit Reason for Visit: ETOH Brief History: History of Present Illness Ivan Dovre is a 28 year old male who presented to the emergency department with the following report: Chief Complaint: Altered Mental Status Stated Complaint: ETOH Time Seen by Provider: 01/30/24 05:33 Source: patient, EMS and police Mode of arrival: EMS Limitations: no limitations History of Present Illness: 28-year-old male that has a history of d epression along with schizophrenia and alcohol abuse patient brought in by police and EMS tonight for paranoia. Patient been drinking alcohol mother called EMS because he had been having anger outburst around the house this morning. She states has been very erratic she has been bringing [employer] boards to cemeteries and manic. Patient here is angry and delusional will not give much information He was admitted to the neuropsychiatric unit for definitive treatment of those issues. He is known to [facility] psychiatry services through inpatient and outpatient services. His last outpatient visit was December 2022 and his last inpatient stay was in October of this year. An excerpt of that discharge summary is included below for context. His UDS was positive for cannabis and benzodiazepines which were likely a confounding finding from medications given in the emergency department. Things have been going well for the last almost 3 months since he was discharged. He reports that he felt he was doing really well but then last night when he went home from being out with people that he knows she got extremely angry in a way that he could explain and felt that he should come to the hospital to be checked out. He denied that he really ever took the medication when he was home. We discussed him considering the risks, benefits and alternatives of some of these antipsychotics and mood stabilizers and he understood and agreed to proceed as is documented in this note. Per his 11/03/2023 [facility] inpatient psychiatric discharge summary: Discharge Diagnosis (1) Borderline personality disorder: Status: Acute (2) Cannabis use disorder, severe, depen dence: Status: Acute (3) Suicidal ideation: Status: Resolved (4) Alcohol intoxication: Status: Acute (5) Acute psychosis: Status: Resolved (6) Schizophrenia: Status: Acute (7) Hallucinations: Status: Resolved (8) Marijuana abuse: Status: Inactive Reason for Visit Reason for Visit: SI Brief History: History of Present Illness Ivan Dover is a 28 year old male who presented to the emergency department with the following report: Chief Complaint: Psychiatric Symptoms Stated Complaint: SI Time Seen by Provider: 10/28/23 23:48 History of Present Illness: 28-year-old man with history of depressi on who presents to the emergency room by ambulance with suicidal thoughts. He states he was thinking about cutting himself. Apparently has been drinking and smoking some marijuana. He walks into the emergency room. No focal motor deficits. No specific plan at this time. He was admitted to the neuropsychiatric unit for definitive treatment of those issues. He is known to the system through inpatient and outpatient services and an excerpt of his last hospitalization is included below for history and context. After that hospitalization he did follow-up with [facility] with good adherence until December 2022. He presents today reporting: Chief complaint The patient was brought to the hospital after an episode of anger and yelling in public. The patient reported feeling upset and hearing voices that became overwhelming. History of the present complaint The patient reported an incident that led to his hospitalization. He mentioned that he became upset and started yelling in a public area, which resulted in the police being called. The patient did not provide specific details about the trigger of his emotional outburst. This is his fourth hospitalization, with the last one occurring in 2019. The patient had been receiving outpatient care at [facility] under Dr. Branch until sometime last year. After that, his mother arranged for him to see another doctor at [facility]. However, he stopped taking his medication after he stopped seeing Dr. Cline. He did not continue his medication even after starting treatment at [facility]. The patient reported that he felt he did not need the medication anymore. The patient admitted to using cannabis and THC regularly, and he recently started drinking alcohol again after a period of abstinence. He denied using any other drugs recently or long-term, and he has never been to rehab or had any charges related to drug use. The patient reported hearing voices, which he described as overwhelming and constant. He stated that these voices were present even when he was on medication and seeing Dr. Branch. He has been on various medications in the past, including Abilify, Geodon, Zyprexa, Seroquel, and Latuda, but none of these medications have completely alleviated his symptoms. The patient was brought to the hospital after an episode of anger and yelling, which he attributed to the voices becoming out of control. Since his admission, he has been given some medication, which he felt was helpful. He acknowledged that while the voices do not completely go away, medication might help manage his symptoms. Currently, the patient reported feeling a little better than the previous day. He denied having any thoughts of self-harm or suicide, but he mentioned that the voices often tell him to harm himself, which he usually ignores. He also reported experiencing paranoia, specifically feeling like ghosts are following him. In addition to hearing voices, the patient also reported seeing things. Mental health history The patient has a history of multiple hospitalizations, with this being the fourth one. The last hospitalization was in 2019. The patient has been to this hospital three times and once to [place]. The patient was previously under the care of Dr. Branch at [facility] and later at [facility]. The patient has been on various medications including Abilify, Geodon, Zyprexa, Seroquel, and Latuda. However, the patient stopped taking medication after ceasing to see Dr. Cline, feeling that they didn't need it. The patient reported that the voices never went away even when on medication. Social history The patient reported using THC and cannabis regularly. The patient started drinking alcohol again recently after a period of abstinence. The patient denied any use of other drugs or having any problems with substances like methamphetamine or opiates. The patient has never been to rehab and has no ch arges related to drug use. Per his 12/29/2019 [facility] inpatient psychiatric discharge summary: History of Present Illness Ivan Dover is a 24 year old male who presented to the emergency department with the following report: Chief Complaint: Psychiatric Symptoms Stated Complaint: INTENTIONAL OVERDOSE Time Seen by Provider: 12/23/19 07:53 History of Present Illness: HPI Narrative: 24-year-old male patient presents to the emergency department via EMS. Patient was discharged from neuropsychiatric unit on 12/21/2019. He reports 1 hour prior to arrival, at approximately 630 to 7 AM, took 15 to 16 tablets of 2 mg Risperdal. Prescribed Risperdal from neuropsych, 12/17/2019. He reports chronic depression, stress. He denies life changing or stressful event that led to intentional overdose. He reports auditory hallucinations, states voices are telling him to kill himself. He reports voices have been present since November. He has battled depression since age 14 with previous self-harm of cutting himself. He lives with his mother. States his mother was aware of what occurred this morning and called 911 for assistance. Associated symptoms: Reports auditory hallucinations, depression and suicidal ideation; Deny visual hallucinations or homicidal ideation He was admitted to the neuropsychiatric unit for the definitive treatment of those issues. He presents today reporting that he went home with the greatest of intentions and things just did not work out. He endorsed the part of the situation is that the voices have become untenable. And even no depression has been noted he reports the real issue is the voices are becoming so unmanageable that he feels the suicidal thinking and does feel a little bit of a dip in his mood. He reports that the voices got really bad about a year to a year and a half ago but acknowledges that the voices were there even before and he had ways to ignore them. Is just that about a year and a half ago it became overwhelmin g. He denies any other trials of medication other than the Risperdal and he reports that the voices never really dissipated. We discussed the risks, benefits and alternatives of initiating Abilify 10 mg p.o. every morning and he understood and agreed to proceed as is documented in this note. We reviewed his previous inpatient evaluation from last week and he denies any substantive changes and so an excerpt of that note is included below. Per his [facility] inpatient eval 12/18/2019: History of Present Illness Ivan Dover is a 24 year old male Ivan Dover is a 24-year-old male with no prior psychiatric history who was brought to the emergency room with the complaint described above. He says that he occasionally has suicidal thoughts. However he has no intent or plan. He does not seem to be particularly depressed. He spends his days playing his guitar and writing music. He feels that he is pretty good at playing guitar and writing music and sometimes will even play his guitar for a friend. He denies being depressed. However he does report the presence of auditory hallucinations. He hears more than 1 voice. There is no command nature to the hallucinations. He cannot identify any voices. He cannot tell whether they are coming from inside of his head or outside of his head. He does not find them typically troubling and is not too concerned about them. On interview today, he is not too concerned about much of anything. He admits that he smokes marijuana and that it helps relax him. He is guarded around how much he smokes. He claims to not really smoke very much. He says that he last went a whole day without smoking a few days ago. Other than getting rid of the auditory hallucinations, he has no other goals. Appetite and sleep are good by his report Laboratory Tests 12/16/2009/02/20 [id number] Urine Opiates Screen Negative Ur Barbiturates Screen Negative Ur Phencyclidine Scrn Negative Ur Amphetamines Screen Negative U Benzodiazepines Scrn Negative Urine Cocaine Screen Negative U Marijuana (THC) Screen Positive H Ethyl Alcohol < 10 Past psychiatric history: He has no history of inpatient psychiatric treatment, outpatient psychiatric treatment. He did see a counselor for a while but does not really want to talk about that. Family psychiatric history: Patient states that there is nobody else in the family that has been treated for mental health problems. Nobody in the family has experienced auditory hallucinations. Nobody else in the family has an alcohol or substance abuse problem. Social history: The patient currently lives with his mother. His mother is employed full-time. The patient is unemployed. The patient has no intention of finding employment. I am not really very good at that kind of thing. He is a high school graduate. He was attending the local college and planning on a career in game design. He stopped attending school 4 years ago. He has no plans to return. He says that he has friends locally but does not name any of them. He describes no activities in which he engages with those friends. He has 2 brothers and a sister. He says he does not see them much. Medical history Records indicate that he is in good medical health. He is on no medications. Laboratory evaluation show that he has a mild elevation in RBC and his nonfasting blood sugar was 129. His urine drug screen was positive for marijuana. Otherwise the UDS was negative. Hospital Course He slowly acclimated to the individual, group and milieu therapies provided. He presented with psychosis and active addiction. We offered the initiation of an antipsychotic but he refused and did show improvement each day. We discussed the possibility that his psychotic symptoms were connected to his marijuana use and expressed concerns about his alcohol use contributing to his poor functioning. He was willing to take Vistaril and trazodone for anxiety and insomnia respectively. He also was willing to take the thiamine given his alcohol use disorder. He was open to referral to therapy but was resistant to an antipsychotic at this time. He worked with the social work team for outpatient referrals and appointments. He had significant improvement during the stay. He was able to contract for safety outside the hospital prior to discharge. During the hospitalization, the patient had routine laboratory studies which were within normal limits except for a few outliers. Additionally, there was a general medical evaluation which was also within normal limits and revealed no new acute processes. Hospital Course At the time of discharge, he denied psychosis or lethality, and psychosis was resolving. Mood and anxiety were well managed. The patient endorsed a plan to avoid all drugs of abuse and follow up with the aftercare recommendations of the treatment team. The patient was evaluated and deemed to be absent credible lethality and had achieved the maximum benefit from an inpatient hospitalization, and so was discharged. Hospital Course Hospital Course During the hospitalization, the patient had routine laboratory studies which were within normal limits except for a few outliers.? Additionally, there was a general medical evaluation which was also within normal limits and revealed no new acute processes.? At the time of discharge, lethality was denied and psychosis was resolving.? Mood and anxiety were well managed.? The patient endorsed a plan to avoid all drugs of abuse and follow up with the aftercare recommendations of the treatment team.? The patient was evaluated and deemed to be absent credible lethality and had achieved the maximum benefit from an inpatient hospitalization, and so was discharged. ?Patient was started on Invega and titrated up to a dose of 6 mg daily to target his hallucinations and paranoia. He had reported having difficulties with managing his anger as well. He had ultimately been agreeable to intramuscular Invega which was given at 234 mg prior to discharge. Patient was also provided a prescription electronically to receive his next IM dose of Invega on 02/10/2024 and if completed to then discontinue oral Invega and maintain compliance with his medications by taking a monthly Invega Sustenna given by his physician. Involuntary Hold Information 96 Hour Hold: 96 Hour Involuntary Admission: Yes 96 Hour Hold Ending Date: 02/05/24 96 Hour Hold Ending Time: 06:19 Other Hold: Hold End Date: 02/05/24 Mental Status Exam MSE Comments: This is an overweight versus obese white male in hospital scrubs with limited grooming and eye contact. Head mostly shaved. No abnormal movements except for psychomotor retardation. He was cooperative with exam in mild to moderate distress. Speech was decreased in rate and normal in volume. Mood described as good.. His affect was blunted and mood incongruent. Thought process was linear and organized. Thought content: Patient denied suicidal or homicidal ideation, There were no delusions reported and no delusional content was noted, He had denied any auditory hallucinations with no complaints of apparitions. Attention and concentration were mostly intact and memory was somewhat reliable but none were formally tested. He is alert and oriented x3. Attention and concentration were limited, impulse control is improved. Discharge Data Studies Completed and Pending: Laboratory Results WBC 8.10 10^3/uL (3.2 9-11.43) 01/30/24 05:58 RBC 5.45 10^6/uL (3.8 5-5.65) 01/30/24 05:58 Hgb 15.50 g/dL (11.27 -16.99) 01/30/24 05:58 Hct 45.7 % (37-53) 01/30/24 05:58 MCV 83.9 fl (82-101) 01/30/24 05:58 MCH 28.4 pg (27-33) 01/30/24 05:58 MCHC 33.9 g/dL (30-55) 01/30/24 05:58 RDW 12.9 % (12.1-15.1 ) 01/30/24 05:58 Plt Count 213 10^3/cmm (157 -399) 01/30/24 05:58 MPV 10.6 fL (7.4-10.4 ) H 01/30/24 05:58 Neut % (Auto) 56.2 % 01/30/24 05:58 Lymph % (Auto) 36.2 % 01/30/24 05:58 [place] % (Auto) 5.3 % 01/30/24 05:58 Eos % (Auto) 1.5 % 01/30/24 05:58 Baso % (Auto) 0.4 % 01/30/24 05:58 Neut # (Auto) 4.56 10^3/uL (1.8 -7.7) 01/30/24 05:58 Lymph # (Auto) 2.9 10^3/uL (0.8- 4.8) 01/30/24 05:58 [place] # (Auto) 0.4 10^3/uL (0.2- 0.9) 01/30/24 05:58 Eos # (Auto) 0.1 10^3/uL (0.0- 0.8) 01/30/24 05:58 Baso # (Auto) 0.0 10^3/uL (0.0- 0.1) 01/30/24 05:58 Nucleated RBC % (a uto) 0 % 01/30/24 05:58 Nucleated RBCs # 0.0 /100WBC 01/30/24 05:58 Sodium 143 mmol/L (136-1 45) 01/30/24 05:58 Potassium 3.6 mmol/L (3.5-5 .1) 01/30/24 05:58 Chloride 104 mmol/L (98-10 7) 01/30/24 05:58 Carbon Dioxide 19 mmol/L (22-29) L 01/30/24 05:58 Anion Gap 23.6 (5-19) H 01/30/24 05:58 BUN 8 mg/dL (6-20) 01/30/24 05:58 Creatinine 0.6 mg/dL (0.7-1. 2) L 01/30/24 05:58 GFR Calculation 160.4 mL/min (90- 130) H 01/30/24 05:58 Glucose 84 mg/dL (65-115) 01/30/24 05:58 Calculated Osmolal ity 294 mOsm/kg (285- 295) 01/30/24 05:58 Calcium 8.6 mg/dL (8.5-10 .5) 01/30/24 05:58 Total Bilirubin 0.8 mg/dL (0.15-1 .2) 01/30/24 05:58 AST 25 U/L (0-40) 01/30/24 05:58 ALT 18 U/L (0-41) 01/30/24 05:58 Alkaline Phosphata se 65 U/L (40-130) 01/30/24 05:58 Total Protein 7.9 g/dL (6.6-8.7 ) 01/30/24 05:58 Albumin 5.1 g/dL (3.5-5.2 ) 01/30/24 05:58 Globulin 2.8 g/dL (1.3-4.6 ) 01/30/24 05:58 TSH 7.98 uIU/mL (0.27 -4.20) H 01/30/24 05:58 Salicylates < 0.3 mg/dL (3-10 ) L 01/30/24 05:58 Urine Opiates Scre en Negative ng/mL (N egative) 01/30/24 16:34 Acetaminophen < 5.0 ug/mL (10-3 0) L 01/30/24 05:58 Ur Barbiturates Sc reen Negative ng/mL (N egative) 01/30/24 16:34 Ur Phencyclidine S crn Negative ng/mL (N egative) 01/30/24 16:34 Ur Amphetamines Sc reen Negative ng/mL (N egative) 01/30/24 16:34 U Benzodiazepines Scrn Positive ng/mL (N egative) H 01/30/24 16:34 Urine Cocaine Scre en Negative ng/mL (N egative) 01/30/24 16:34 U Marijuana (THC) Screen Positive ng/mL (N egative) H 01/30/24 16:34 Ethyl Alcohol 200 mg/dL (0-10) H 01/30/24 05:58 Vitals: Last Vital Signs Temp 99.1 F 02/04/24 14:00 Pulse 100 02/04/24 14:00 Resp 16 02/04/24 14:00 BP 134/78 02/04/24 14:00 Pulse Ox 96 02/04/24 14:00 O2 Del Method Room Air 02/04/24 14:00 Discharge Plan Discharge Patient Disposition: Home Condition: Stable Prescriptions: New Invega Sustenna 156 mg/mL syringe 156 mg IM Q30D Qty: 1 0RF Rx Instructions: Patient due for this as second loading dose on 02/10/24. folic acid 1 mg Tablet 1 mg PO DAILY 30 Days Qty: 30 0RF paliperidone 6 mg Tablet Extended Release 24 Hr 6 mg PO DAILY 30 Days Qty: 30 0RF Rx Instructions: This medication to be discontinued upon completion of IM 156mg scheduled on 02/10/24. Otherwise continue this medication orally. thiamine mononitrate (vit B1) [Vitamin B-1 (mononitrate)] 100 mg Tablet 100 mg PO DAILY 30 Days Qty: 30 1RF Continued thiamine mononitrate (vit B1) [Vitamin B-1 (mononitrate)] 100 mg Tablet 100 mg PO DAILY 30 Days Qty: 30 1RF trazodone 50 mg Tablet 50 mg PO BEDTIME PRN (Reason: Sleep) 30 Days Qty: 30 1RF hydroxyzine pamoate 25 mg Capsule 50 mg PO Q6H PRN (Reason: Anxiety) 30 Days Qty: 120 1RF Discharge Orders: Discharge Order (Routine); Ordered 02/04/24 Ordered By: Wade Rodgers Referrals: [facility] [Other] (You have been referred to [facility]. Call and follow up. ) [facility] [Outside] Anastasia Mcgovern NP [Nurse Practitioner] - 03/03/24 10:45 am (Establish care/hospital follow up) Discharge Diet: Usual diet Discharge Activity: Resume usual activity Patient Instructions: Paliperidone (By mouth) (Invega), Altered Mental Status (ED), Psychotic Disorder (DC), Opioid Safety Discharge Attestations NPU Time Spent in Discharge Care*: less than 30 min Specific Discharge Activities: Specific discharge activities: educating patient, discussing with child support case officer/social workers/dc planners and documenting/other paperwork Status at Discharge: Cognitive status at discharge: cognitively intact , Behavioral status at discharge: cooperative , Coding Level of Care Code Acute Code for [facility] Diagnoses Acute psychosis F23 Borderline personality disorder F60.3 Cannabis use disorder, severe, dependence F12.20 Suicidal ideation R45.851 Alcohol intoxication F10.929 Schizophrenia F20.9 Hallucinations R44.3 Marijuana abuse F12.10
== END 2024-02-04 15:24 | disposition home or self-care (01) | DRG 885 ==
LOC: ER 08:20 → NP 17:23
PROVIDERS: Admitting Provider Psychiatry & Neurology Psychiatry; Emergency Provider Emergency Medicine; Visit Provider Psychiatry & Neurology Psychiatry
DX: F25.0 Schizoaffective disorder, bipolar type (principal); R45.851 Suicidal ideations; F10.129 Alcohol abuse with intoxication, unspecified; Y90.7 Blood alcohol level of 200-239 mg/100 ml; F60.3 Borderline personality disorder; F12.20 Cannabis dependence, uncomplicated; F17.290 Nicotine dependence, other tobacco product, uncomplicated; F13.90 Sedative, hypnotic, or anxiolytic use, unspecified, uncomplicated; E66.9 Obesity, unspecified; Z68.32 Body mass index [BMI] 32.0-32.9, adult; Z79.891 Long term (current) use of opiate analgesic
CPT/HCPCS: 80053; 80306; 80307; 84443; 85025; 90471; 90686; 96372; 97150; 97165; 99285; J1200; J1630; J2060

== ENCOUNTER 2024-07-04 19:47 | Emergency (ER) | payer MEDICAID, SELFPAY ==
[2024-07-04 19:49] VITALS: BP 142/74; PULSE 87; RESP 14; TEMP 35.9; O2SAT 98; BMI 36.1
--- NOTE | 2024-07-04 20:18 | W.ED.EYEPROB ---
HPI - Eye Problem General: Chief complaint: Eye Problems Stated complaint: Left Eye Swollen Time Seen by Provider: 07/04/24 19:50 Source: patient Mode of arrival: ambulatory Limitations: no limitations History of Present Illness: 28-year-old male states he noted some swelling to his left lower lid since yesterday. He states some slight pain denies any change in vision denies any fevers denies any injuries. Associated symptoms: Denies fever(s), headache(s), nausea, neck pain or vomiting Related Data Previous Rx's ?Medication ?Instructions ?Recorded hydroxyzine pamoate 25 mg capsule 50 mg (2 x 25 mg) PO Q6H PRN 11/03/23 Anxiety 30 days #120 caps thiamine mononitrate (vit B1) 100 100 mg PO DAILY 30 days #30 tabs 11/03/23 mg tablet (Vitamin B-1 (mononitrate)) trazodone 50 mg tablet 50 mg PO BEDTIME PRN Sleep 30 days 11/03/23 #30 tabs paliperidone palmitate 156 mg/mL 156 mg IM Q30D #1 mL 02/04/24 intramuscular syringe (Invega Sustenna) thiamine mononitrate (vit B1) 100 100 mg PO DAILY 30 days #30 tabs 02/04/24 mg tablet (Vitamin B-1 (mononitrate)) erythromycin 5 mg/gram (0.5 %) eye 1 applic ophthalmic (eye) Q6H 7 07/04/24 ointment (3.5 gram tube) days #3.5 grams Allergies Allergy/AdvReac Type Severity Reaction Status Date / Time No Known Allergies Allergy Verified 07/04/24 19:49 Review of Systems Const: Denies: fever(s), chills, body aches or change in appetite Eyes: Denies: blurry vision ENMT: Denies: throat pain or dental pain Card: Denies: chest pain Resp: Denies: dyspnea GI: Denies: abdominal pain, nausea, vomiting or diarrhea Musc: Denies: neck pain or back pain Skin/Breast: Denies: rash Neuro: Denies: headache(s) PFSH ED PFSH: Medical History Marijuana abuse Family History Denies family history of Diabetes CAD (coronary artery disease) Hypertension Stroke Social History Smoking and tobacco/nicotine status: current every day tobacco/nicotine user e-cigarettes E-Cigarette Details: vaporizer device and without nicotine E-cig/vape details: Occasional use. Quit status (tobacco/nicotine): has quit using Year quit tobacco: 2008 Second hand smoke exposure: Yes Alcohol intake: former Substance/Drug Use: former Current occupational status: employed Current occupation: [employer] Current gender identity: Male Physical Exam Const: COMMON NORMALS: no acute distress, patient oriented x3 and healthy appearing HENMT: COMMON NORMALS: normocephalic and atraumatic HEAD & SCALP: normocephalic and atraumatic Eye: COMMON NORMALS: Equal, round and reactive pupils present and EOMs intact bilaterally PUPIL: Yes Equal, round and reactive pupils present OTHER: Stye noted to left lower lid Neck/C-Spine: COMMON NORMALS: full ROM and supple Chest: COMMONS NORMALS: normal inspection of the chest and normal palpation of entire chest wall Resp: COMMON NORMALS: normal respiratory effort Cardio: COMMON NORMALS: regular rate RATE: regular rate Extremity: COMMON NORMALS: normal to inspection Neuro: COMMON NORMALS: patient oriented x3, moves all extremities and no focal motor deficits Psych: COMMON NORMALS: mental status grossly normal, Normal thought process present and cooperative THOUGHT PROCESS: Normal thought process present Skin: COMMON NORMALS: no rashes or lesions noted and no wounds GENERAL SKIN EXAM: no rashes or lesions noted Course Vital Signs: Vital signs: Vital Signs Temperature 96.6 F L 07/04/24 19:49 Pulse Rate 87 07/04/24 19:49 Respiratory Rate 14 07/04/24 19:49 Blood Pressure 142/74 07/04/24 19:49 Pulse Oximetry 98 07/04/24 19:49 MDM - Eye Problem Medical Decision Making Patient presents with a stye left lower lid will start on erythromycin ointment patient to do warm compresses will get follow-up with ophthalmology if worsening patient understands agrees plan Medical Records I reviewed the patient's medical records. No radiology studies performed this visit Discharge Plan Discharge Patient Disposition: Home Clinical Impression: Hordeolum externum left lower eyelid Condition: Stable Prescriptions: New erythromycin 5 mg/gram (0.5 %) ointment 1 applic ophthalmic (eye) Q6H 7 Days Qty: 3.5 0RF No Action thiamine mononitrate (vit B1) [Vitamin B-1 (mononitrate)] 100 mg Tablet 100 mg PO DAILY 30 Days Qty: 30 1RF trazodone 50 mg Tablet 50 mg PO BEDTIME PRN (Reason: Sleep) 30 Days Qty: 30 1RF hydroxyzine pamoate 25 mg Capsule 50 mg PO Q6H PRN (Reason: Anxiety) 30 Days Qty: 120 1RF Invega Sustenna 156 mg/mL syringe 156 mg IM Q30D Qty: 1 0RF Rx Instructions: Patient due for this as second loading dose on 02/10/24. thiamine mononitrate (vit B1) [Vitamin B-1 (mononitrate)] 100 mg Tablet 100 mg PO DAILY 30 Days Qty: 30 1RF Discharge Orders: Discharge ED (Routine); Ordered 07/04/24 Ordered By: Princess Contreras Referrals: Pawan Martinez [Physician] - 4-7 days Ankur Mccurdy MD [Primary Care Provider] - 4-7 days Discharge Diet: Advance as tolerated Discharge Activity: Resume usual activity Patient Instructions: Jessie (ED) Print Language: Hong Konger Coding Level of Care Code ED High Pressure Boiler Operator for Ayesha Nj
[2024-07-04 20:26] VITALS: BP 142/74; PULSE 87; RESP 16; O2SAT 98
== END 2024-07-04 20:27 | disposition home or self-care (01) ==
PROVIDERS: Emergency Provider Emergency Medicine; PCP Family Medicine
DX: H00.015 Hordeolum externum left lower eyelid (principal); F17.290 Nicotine dependence, other tobacco product, uncomplicated
CPT/HCPCS: 99283

== ENCOUNTER 2024-07-30 01:02 | Inpatient (IN) | payer MEDICAID, SELFPAY ==
[2024-07-30 01:17] VITALS: BP 155/100; PULSE 104; RESP 20; TEMP 36.8; O2SAT 98; BMI 30.7
--- NOTE | 2024-07-30 01:32 | ECG_ITS ---
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 Measurements Intervals [place] Rate: 91 P: 50 NE: 128 QRS: 48 QRSD: 101 T: 37 QT: 329 QTc: 407 Interpretive Statements SINUS RHYTHM Compared to ECG 10/29/2023 00:09:11 No significant changes Electronically Signed On 07-30-2024 08:59:15 CDT by Nick Merino M.D. [email or web address]
[2024-07-30 02:10] LABS: Bilirubin Urine Negative (Negative); Blood Urine Trace (Negative); Glucose Urine UA Negative (Normal); Ketones Urine Negative (Negative); Leukocyte Esterase Urine Negative (Negative); Nitrate Urine Negative (Negative); Protein Urine Trace (Negative); Specific Gravity, Urine 1.008 (1.005-1.030); Urine Appearance Clear (CLEAR); Urine Color Yellow (Yellow); Urobilinogen Urine 0.2 mg/dL (Negative); pH Urine 6.5 (5-7)
[2024-07-30 02:13] LABS: Add Urine Microscopic? YES; Bacteria Urine None Seen /hpf; Hyaline Casts Urine 2.05 /lpf; RBC Urine 0-2 /hpf (0-2); Squamous Epithelial Cell Urine 0-5 /hpf (0-5); WBC Urine 0-5 /hpf (0-5)
[2024-07-30 02:17] LABS: Amphetamines Screen Urine Negative (Negative); Barbiturates Screen Urine Negative (Negative); Benzodiazepines Screen Urine Negative (Negative); Cocaine Screen Urine Negative (Negative); Opiate Screen Urine Negative (Negative); PCP Screen Urine Negative (Negative); THC Screen Urine Positive (Negative)
--- NOTE | 2024-07-30 02:32 | W.ED.PSYCHS ---
HPI - Psych General: Chief Complaint: Psychiatric Symptoms Stated Complaint: MHE Time Seen by Provider: 07/30/24 01:23 History of Present Illness: 28-year-old man with a history of borderline personality disorder, cannabis use disorder, history of suicidal ideations, alcohol abuse, psychosis and schizophrenia who presents to the emergency room today with hallucinations and he says they have been telling him to hurt himself. He has no specific plan at this time Related Data Previous Rx's ?Medication ?Instructions ?Recorded hydroxyzine pamoate 25 mg capsule 50 mg (2 x 25 mg) PO Q6H PRN 11/03/23 Anxiety 30 days #120 caps thiamine mononitrate (vit B1) 100 100 mg PO DAILY 30 days #30 tabs 11/03/23 mg tablet (Vitamin B-1 (mononitrate)) trazodone 50 mg tablet 50 mg PO BEDTIME PRN Sleep 30 days 11/03/23 #30 tabs paliperidone palmitate 156 mg/mL 156 mg IM Q30D #1 mL 02/04/24 intramuscular syringe (Invega Sustenna) thiamine mononitrate (vit B1) 100 100 mg PO DAILY 30 days #30 tabs 02/04/24 mg tablet (Vitamin B-1 (mononitrate)) Allergies Allergy/AdvReac Type Severity Reaction Status Date / Time No Known Allergies Allergy Verified 07/04/24 19:49 Review of Systems Narrative: Constitutional symptoms: Negative except as documented in HPI. Skin symptoms: Negative except as documented in HPI. Eye symptoms: Negative except as documented in HPI. ENMT symptoms: Negative except as documented in HPI. Respiratory symptoms: Negative except as documented in HPI. Cardiovascular symptoms: Negative except as documented in HPI. Gastrointestinal symptoms: Negative except as documented in HPI. Genitourinary symptoms: Negative except as documented in HPI. Musculoskeletal symptoms: Negative except as documented in HPI. Neurologic symptoms: Negative except as documented in HPI. Psychiatric symptoms: Negative except as documented in HPI. Endocrine symptoms: Negative except as documented in HPI. [facility] ED PFSH: Medical History Marijuana abuse Family History Denies family history of Diabetes CAD (coronary artery disease) Hypertension Stroke Social History Smoking and tobacco/nicotine status: current every day tobacco/nicotine user e-cigarettes E-Cigarette Details: vaporizer device and without nicotine E-cig/vape details: Occasional use. Quit status (tobacco/nicotine): has quit using Year quit tobacco: 2008 Second hand smoke exposure: Yes Alcohol intake: former Substance/Drug Use: former Current occupational status: employed Current occupation: [employer] Current gender identity: Male Physical Exam Narrative: EXAM NARRATIVE: General: Alert, no acute distress. Skin: Warm, dry. Head: Normocephalic, atraumatic. Neck: Supple, trachea midline. Eye: Extraocular movements are intact. Ears, nose, mouth and throat: mucosa moist. Cardiovascular: Regular, Normal peripheral perfusion. Respiratory: Lungs are clear to auscultation, respirations are non-labored, breath sounds are equal, Symmetrical chest wall expansion. Gastrointestinal: Soft, Nontender, Non distended Musculoskeletal: Normal ROM, no deformity. Neurological: Alert and oriented, No focal neurological deficit observed. Psychiatric: Cooperative, odd affect. Reports hallucinations and that they are telling him to hurt himself. Course Vital Signs: Vital signs: Vital Signs Temperature 98.2 F 07/30/24 01:17 Pulse Rate 104 H 07/30/24 01:17 Respiratory Rate 20 H 07/30/24 01:17 Blood Pressure 155/100 07/30/24 01:17 Pulse Oximetry 98 07/30/24 01:17 MDM - Psych Medical Decision Making Medical decision making: Differential diagnosis for patient with reported psychosis with plan for psychiatric admission including but not limited to and based on the above HPI, review of systems and physical exam: concerns for infection, alcohol intoxication, cardiac issues or other medical problems prior to psychiatric admission. Orders placed to evaluate differential diagnosis based on the above differential, HPI and physical exam labwork, ekg ordered to evaluate the pathologies and to clear the patient medically prior to psychiatric admission EKG: Time 1:43 AM. Rate 91. Normal sinus rhythm, No ST-T changes, no ectopy, normal DC & QRS intervals, This was reviewed and interpreted by myself the ER physician at 1:48 AM Lab Review: Laboratory results were reviewed and interpreted by myself the emergency room physician. - Medically cleared. - EKG shows no ischemic changes. - Blood alcohol level is negative, as well as salicylate and Tylenol. - Drug screen is positive for marijuana - No signs of infection, urinalysis clear and white count is not elevated - No anemia. - BUN and creatinine are within normal limits. I reviewed the patient's medical record. Consultation: I spoke with Dr. Mcgovern who is on-call for psychiatry agrees to admission. Assessment and plan: Suicidal thoughts Hallucinations Schizophrenia ?96-hour hold placed. -Admission to neuropsychiatric unit for continued evaluation and treatment. - All lab work was reviewed and interpreted personally by myself, the ER physician - Evaluation and treatment of this problem were appropriate in the emergency setting Lab Data 07/30/24 02:27 07/30/24 02:27 Laboratory Results WBC 8.20 10^3/uL (3.29-11.43) 07/30/24 02: RBC 5.00 10^6/uL (3.85-5.65) 07/30/24 02:27 Hgb 14.60 g/dL (11.27-16.99) 07/30/24 02:27 Hct 42.8 % (37-53) 07/30/24 02:27 MCV 85.6 fl (82-101) 07/30/24 02: MCH 29.2 pg (27-33) 07/30/24 02: MCHC 34.1 g/dL (30-55) 07/30/24 02:27 RDW 13.1 % (12.1-15.1) 07/30/24 02:27 Plt Count 194 10^3/cmm (157-399) 07/30/24 02: MPV 10.7 fL (7.4-10.4) H 07/30/24 02:27 Neut % (Auto) 64.0 % 07/30/24 02:27 Lymph % (Auto) 27.4 % 07/30/24 02:27 [place] % (Auto) 6.2 % 07/30/24 02:27 Eos % (Auto) 1.8 % 07/30/24 02:27 Baso % (Auto) 0.2 % 07/30/24 02:27 Neut # (Auto) 5.24 10^3/uL (1.8-7.7) 07/30/24 02:27 Lymph # (Auto) 2.3 10^3/uL (0.8-4.8) 07/30/24 02:27 [place] # (Auto) 0.5 10^3/uL (0.2-0.9) 07/30/24 02:27 Eos # (Auto) 0.2 10^3/uL (0.0-0.8) 07/30/24 02:27 Baso # (Auto) 0.0 10^3/uL (0.0-0.1) 07/30/24 02:27 Nucleated RBC % (auto) 0 % 07/30/24 02:27 Nucleated RBCs # 0.0 /100WBC 07/30/24 02:27 Sodium 140 mmol/L (136-145) 07/30/24 02:27 Potassium 4.1 mmol/L (3.5-5.1) 07/30/24 02:27 Chloride 101 mmol/L (98-107) 07/30/24 02:27 Carbon Dioxide 27 mmol/L (22-29) 07/30/24 02:27 Anion Gap 16.1 (5-19) 07/30/24 02:27 BUN 14 mg/dL (6-20) 07/30/24 02:27 Creatinine 0.8 mg/dL (0.7-1.2) 07/30/24 02:27 GFR Calculation 115.1 mL/min (90-130) 07/30/24 02:27 Glucose 92 mg/dL (65-115) 07/30/24 02:27 Calculated Osmolality 290 mOsm/kg (285-295) 07/30/24 02:27 Calcium 9.9 mg/dL (8.5-10.5) 07/30/24 02:27 Total Bilirubin 0.6 mg/dL (0.15-1.2) 07/30/24 02:27 AST 44 U/L (0-40) H 07/30/24 02:27 ALT 24 U/L (0-41) 07/30/24 02:27 Alkaline Phosphatase 69 U/L (40-130) 07/30/24 02:27 Total Protein 8.0 g/dL (6.6-8.7) 07/30/24 02:27 Albumin 5.0 g/dL (3.5-5.2) 07/30/24 02:27 Globulin 3.0 g/dL (1.3-4.6) 07/30/24 02:27 TSH 5.10 uIU/mL (0.27-4.20) H 07/30/24 02:27 Urine Color Yellow (Yellow) 07/30/24 01:15 Urine Appearance Clear (CLEAR) 07/30/24 01:15 Urine pH 6.5 (5-7) 07/30/24 01:15 Ur Specific [place] 1.008 (1.005-1.030) 07/30/24 01:15 Urine Protein Trace (Negative) A 07/30/24 01:15 Urine Glucose (UA) Negative (Normal) 07/30/24 01:15 Urine Ketones Negative (Negative) 07/30/24 01:15 Urine Blood Trace (Negative) A 07/30/24 01:15 Urine Nitrate Negative (Negative) 07/30/24 01:15 Urine Bilirubin Negative (Negative) 07/30/24 01:15 Urine Urobilinogen 0.2 mg/dL (Negative) 07/30/24 01:15 Ur Leukocyte Esterase Negative (Negative) 07/30/24 01:15 Urine RBC 0-2 /hpf (0-2) 07/30/24 01:15 Urine WBC 0-5 /hpf (0-5) 07/30/24 01:15 Ur Squamous Epith Cells 0-5 /hpf (0-5) 07/30/24 01:15 Amorphous Sediment Not Reportable 07/30/24 01:15 Urine Bacteria None seen /hpf (NONE) 07/30/24 01:15 Hyaline Casts 2.05 /lpf 07/30/24 01:15 Salicylates < 0.3 mg/dL (3-10) L 07/30/24 02:27 Urine Opiates Screen Negative ng/mL (Negative) 07/30/24 01:15 Acetaminophen < 5.0 ug/mL (10-30) L 07/30/24 02:27 Ur Barbiturates Screen Negative ng/mL (Negative) 07/30/24 01:15 Ur Phencyclidine Scrn Negative ng/mL (Negative) 07/30/24 01:15 Ur Amphetamines Screen Negative ng/mL (Negative) 07/30/24 01:15 U Benzodiazepines Scrn Negative ng/mL (Negative) 07/30/24 01:15 Urine Cocaine Screen Negative ng/mL (Negative) 07/30/24 01:15 U Marijuana (THC) Screen Positive ng/mL (Negative) H 07/30/24 01:15 Ethyl Alcohol < 10 mg/dL (0-10) 07/30/24 02:27 No radiology studies performed this visit Discharge Plan Discharge Patient Disposition: Admitted As Inpatient Clinical Impression: Schizophrenia, Suicidal ideation Condition: Stable Coding Level of Care Code ED Splitter Head for Ayesha Nj
[2024-07-30 02:43] LABS: Basophils % 0.2 %; Eosinophils # 0.2 10^3/uL (0.0-0.8); Eosinophils % 1.8 %; Hematocrit 42.8 % (37-53); Lymphocytes # 2.3 10^3/uL (0.8-4.8); Lymphocytes % 27.4 %; Mean Corpuscular HGB Conc 34.1 g/dL (30-55); Mean Corpuscular Hemoglobin 29.2 pg (27-33); Mean Corpuscular Volume 85.6 fl (82-101); Mean Platelet Volume 10.7 fL (7.4-10.4); Monocytes # 0.5 10^3/uL (0.2-0.9); Monocytes % 6.2 %; Neutrophils # 5.24 10^3/uL (1.8-7.7); Nucleated Red Blood Cells % 0 %; Platelet Count 194 10^3/cmm (157-399); Red Cell Distribution Width 13.1 % (12.1-15.1)
[2024-07-30 03:13] LABS: Alanine Aminotransferase 24 U/L (0-41); Alkaline Phosphatase 69 U/L (40-130); Anion Gap 16.1 (5-19); Aspartate Amino Transferase 44 U/L (0-40); Blood Urea Nitrogen 14 mg/dL (6-20); Calcium 9.9 mg/dL (8.5-10.5); Carbon Dioxide 27 mmol/L (22-29); Chloride 101 mmol/L (98-107); Creatinine Clr Calc Pharmacy 165.4644; Glomerular Filtration Rate 115.1 mL/min (90-130); Glucose 92 mg/dL (65-115); Osmolality Calculated 290 mOsm/kg (285-295); Potassium 4.1 mmol/L (3.5-5.1); Sodium 140 mmol/L (136-145); Total Bilirubin 0.6 mg/dL (0.15-1.2)
[2024-07-30 03:15] LABS: Acetaminophen < 5.0 ug/mL (10-30); Alcohol Level < 10 mg/dL (0-10); Salicylate < 0.3 mg/dL (3-10)
--- NOTE | 2024-07-30 06:00 | PC.NURSE ---
96 Hour Involuntary Hold Patient Rights have been reviewed with the patient and a copy of the same has been provided to him. Cardiology Rn Brad was present at the bedside during the presentation of Rights.
[2024-07-30 07:49] VITALS: BP 138/83; PULSE 80; O2SAT 98
[2024-07-30 12:53] VITALS: BP 134/81; PULSE 75; O2SAT 100
[2024-07-30 13:17] VITALS: BP 144/99; PULSE 87; RESP 16; TEMP 37; O2SAT 98
[2024-07-30 14:00] VITALS: BP 136/78; PULSE 98; RESP 16; TEMP 37; O2SAT 98
--- NOTE | 2024-07-30 14:23 | W.PM.NPUH&PS ---
Providers/Chief Complaint Admitting Physician: Davin Mcgovern MD Primary Care Provider: Ankur Mccurdy MD Chief Complaint: MHE HPI NPU History of Present Illness Ivan Dover is a 28 year old male who presented to the emergency department with the following report: Chief Complaint: Psychiatric Symptoms Stated Complaint: MHE Time Seen by Provider: 07/30/24 01:23 History of Present Illness: 28-year-old man with a history of borderline personality disorder, cannabis use disorder, history of suicidal ideations, alcohol abuse, psychosis and schizophrenia who presents to the emergency room today with hallucinations and he says they have been telling him to hurt himself. He has no specific plan at this time. He was admitted to the neuropsychiatric unit for definitive treatment of those issues. He is known to [facility] through previous outpatient admissions. The last of which was in January of last year and an excerpt of that note is included below for context and the fact that there have been no substantive changes. He presents today reporting that he had been off his medication for some time and that he was really wanting to get stable again. He reports that he has been having limited difficulties with addiction but mostly just having problems being off his medication and that the other day he started having voices returning and those being overwhelming. We discussed the risks, benefits and alternatives of restarting his medication he had been on in the past specifically the antipsychotic and he understood and agreed to proceed as is documented in this note. He reports has been sometime since he had been on the medication and he was hopeful that with the medications restarted he would not be able to have the voices go away and he would be better otherwise. Per his 02/04/2024 [facility] inpatient psychiatric discharge summary: Diagnoses at Discharge Discharge Diagnosis (1) Acute psychosis: Status: Resolved (2) Borderline personality disorder: Status: Acute (3) Cannabis use disorder, severe, dependence: Status: Acute (4) Suicidal ideation: Status: Resolved (5) Alcohol intoxication: Status: Acute (6) Schizophrenia: Status: Acute (7) Hallucinations: Status: Resolved (8) Marijuana abuse: Status: Inactive Reason for Visit Reason for Visit: ETOH Brief History: History of Present Illness Ivan Dover is a 28 year old male who presented to the emergency department with the following report: Chief Complaint: Altered Mental Status Stated Complaint: ETOH Time Seen by Provider: 01/30/24 05:33 Source: patient, EMS and police Mode of arrival: EMS Limitations: no limitations History of Present Illness: 28-year-old male that has a history of depression along with schizophrenia and alcohol abuse patient brought in by police and EMS tonight for paranoia. Patient been drinking alcohol mother called EMS because he had been having anger outburst around the house this morning. She states has been very erratic she has been bringing Ouija boards to cemeteries and manic. Patient here is angry and delusional will not give much information He was admitted to the neuropsychiatric unit for definitive treatment of those issues. He is known to [facility] psychiatry services through inpatient and outpatient services. His last outpatient visit was December 2022 and his last inpatient stay was in October of this year. An excerpt of that discharge summary is included below for context. His UDS was positive for cannabis and benzodiazepines which were likely a confounding finding from medications given in the emergency department. Things have been going well for the last almost 3 months since he was discharged. He reports that he felt he was doing really well but then last night when he went home from being out with people that he knows she got extremely angry in a way that he could explain and felt that he should come to the hospital to be checked out. He denied that he really ever took the medication when he was home. We discussed him considering the risks, benefits and alternatives of some of these antipsychotics and mood stabilizers and he understood and agreed to proceed as is documented in this note. Per his 11/03/2023 [facility] inpatient psychiatric discharge summary: Discharge Diagnosis (1) Borderline personality disorder: Status: Acute (2) Cannabis use disorder, severe, dependence: Status: Acute (3) Suicidal ideation: Status: Resolved (4) Alcohol intoxication: Status: Acute (5) Acute psychosis: Status: Resolved (6) Schizophrenia: Status: Acute (7) Hallucinations: Status: Resolved (8) Marijuana abuse: Status: Inactive Reason for Visit Reason for Visit: SI Brief History: History of Present Illness vIan Dover is a 28 year old male who presented to the emergency department with the following report: Chief Complaint: Psychiatric Symptoms Stated Complaint: SI Time Seen by Provider: 10/28/23 23:48 History of Present Illness: 28-year-old man with history of depression who presents to the emergency room by ambulance with suicidal thoughts. He states he was thinking about cutting himself. Apparently has been drinking and smoking some marijuana. He walks into the emergency room. No focal motor deficits. No specific plan at this time. He was admitted to the neuropsychiatric unit for definitive treatment of those issues. He is known to the system through inpatient and outpatient services and an excerpt of his last hospitalization is included below for history and context. After that hospitalization he did follow-up with [facility] with good adherence until December 2022. He presents today reporting: Chief complaint The patient was brought to the hospital after an episode of anger and yelling in public. The patient reported feeling upset and hearing voices that became overwhelming. History of the present complaint The patient reported an incident that led to his hospitalization. He mentioned that he became upset and started yelling in a public area, which resulted in the police being called. The patient did not provide specific details about the trigger of his emotional outburst. This is his fourth hospitalization, with the last one occurring in 2019. The patient had been receiving outpatient care at [facility] under Dr. Branch until sometime last year. After that, his mother arranged for him to see another doctor at [facility]. However, he stopped taking his medication after he stopped seeing Dr. Cline. He did not continue his medication even after starting treatment at [facility]. The patient reported that he felt he did not need the medication anymore. The patient admitted to using cannabis and THC regularly, and he recently started drinking alcohol again after a period of abstinence. He denied using any other drugs recently or long-term, and he has never been to rehab or had any charges related to drug use. The patient reported hearing voices, which he described as overwhelming and constant. He stated that these voices were present even when he was on medication and seeing Dr. Branch. He has been on various medications in the past, including Abilify, Geodon, Zyprexa, Seroquel, and Latuda, but none of these medications have completely alleviated his symptoms. The patient was brought to the hospital after an episode of anger and yelling, which he attributed to the voices becoming out of control. Since his admission, he has been given some medication, which he felt was helpful. He acknowledged that while the voices do not completely go away, medication might help manage his symptoms. Currently, the patient reported feeling a little better than the previous day. He denied having any thoughts of self-harm or suicide, but he mentioned that the voices often tell him to harm himself, which he usually ignores. He also reported experiencing paranoia, specifically feeling like ghosts are following him. In addition to hearing voices, the patient also reported seeing things. Mental health history The patient has a history of multiple hospitalizations, with this being the fourth one. The last hospitalization was in 2019. The patient has been to this hospital three times and once to [place]. The patient was previously under the care of Dr. Branch at [facility] and later at [facility]. The patient has been on various medications including Abilify, Geodon, Zyprexa, Seroquel, and Latuda. However, the patient stopped taking medication after ceasing to see Dr. Cline, feeling that they didn't need it. The patient reported that the voices never went away even when on medication. Social history The patient reported using THC and cannabis regularly. The patient started drinking alcohol again recently after a period of abstinence. The patient denied any use of other drugs or having any problems with substances like methamphetamine or opiates. The patient has never been to rehab and has no charges related to drug use. Per his 12/29/2019 [facility] inpatient psychiatric discharge summary: History of Present Illness Ivan Dover is a 24 year old male who presented to the emergency department with the following report: Chief Complaint: Psychiatric Symptoms Stated Complaint: INTENTIONAL OVERDOSE Time Seen by Provider: 12/23/19 07:53 History of Present Illness: HPI Narrative: 24-year-old male patient presents to the emergency department via EMS. Patient was discharged from neuropsychiatric unit on 12/21/2019. He reports 1 hour prior to arrival, at approximately 630 to 7 AM, took 15 to 16 tablets of 2 mg Risperdal. Prescribed Risperdal from [facility], 12/17/2019. He reports chronic depression, stress. He denies life changing or stressful event that led to intentional overdose. He reports auditory hallucinations, states voices are telling him to kill himself. He reports voices have been present since November. He has battled depression since age 14 with previous self-harm of cutting himself. He lives with his mother. States his mother was aware of what occurred this morning and called 911 for assistance. Associated symptoms: Reports auditory hallucinations, depression and suicidal ideation; Deny visual hallucinations or homicidal ideation He was admitted to the neuropsychiatric unit for the definitive treatment of those issues. He presents today reporting that he went home with the greatest of intentions and things just did not work out. He endorsed the part of the situation is that the voices have become untenable. And even no depression has been noted he reports the real issue is the voices are becoming so unmanageable that he feels the suicidal thinking and does feel a little bit of a dip in his mood. He reports that the voices got really bad about a year to a year and a half ago but acknowledges that the voices were there even before and he had ways to ignore them. Is just that about a year and a half ago it became overwhelming. He denies any other trials of medication other than the Risperdal and he reports that the voices never really dissipated. We discussed the risks, benefits and alternatives of initiating Abilify 10 mg p.o. every morning and he understood and agreed to proceed as is documented in this note. We reviewed his previous inpatient evaluation from last week and he denies any substantive changes and so an excerpt of that note is included below. Per his [facility] inpatient eval 12/18/2019: History of Present Illness Ivan Dover is a 24 year old male Ivan Dover is a 24-year-old male with no prior psychiatric history who was brought to the emergency room with the complaint described above. He says that he occasionally has suicidal thoughts. However he has no intent or plan. He does not seem to be particularly depressed. He spends his days playing his guitar and writing music. He feels that he is pretty good at playing guitar and writing music and sometimes will even play his guitar for a friend. He denies being depressed. However he does report the presence of auditory hallucinations. He hears more than 1 voice. There is no command nature to the hallucinations. He cannot identify any voices. He cannot tell whether they are coming from inside of his head or outside of his head. He does not find them typically troubling and is not too concerned about them. On interview today, he is not too concerned about much of anything. He admits that he smokes marijuana and that it helps relax him. He is guarded around how much he smokes. He claims to not really smoke very much. He says that he last went a whole day without smoking a few days ago. Other than getting rid of the auditory hallucinations, he has no other goals. Appetite and sleep are good by his report Laboratory Tests 12/16/2009/02/20 21:5022:25 Urine Opiates Screen Negative Ur Barbiturates Screen Negative Ur Phencyclidine Scrn Negative Ur Amphetamines Screen Negative U Benzodiazepines Scrn Negative Urine Cocaine Screen Negative U Marijuana (THC) Screen Positive H Ethyl Alcohol < 10 Past psychiatric history: He has no history of inpatient psychiatric treatment, outpatient psychiatric treatment. He did see a counselor for a while but does not really want to talk about that. Family psychiatric history: Patient states that there is nobody else in the family that has been treated for mental health problems. Nobody in the family has experienced auditory hallucinations. Nobody else in the family has an alcohol or substance abuse problem. Social history: The patient currently lives with his mother. His mother is employed full-time. The patient is unemployed. The patient has no intention of finding employment. I am not really very good at that kind of thing. He is a high school graduate. He was attending the local college and planning on a career in game design. He stopped attending school 4 years ago. He has no plans to return. He says that he has friends locally but does not name any of them. He describes no activities in which he engages with those friends. He has 2 brothers and a sister. He says he does not see them much. Medical history Records indicate that he is in good medical health. He is on no medications. Laboratory evaluation show that he has a mild elevation in RBC and his nonfasting blood sugar was 129. His urine drug screen was positive for marijuana. Otherwise the UDS was negative. Hospital Course He slowly acclimated to the individual, group and milieu therapies provided. He presented with psychosis and active addiction. We offered the initiation of an antipsychotic but he refused and did show improvement each day. We discussed the possibility that his psychotic symptoms were connected to his marijuana use and expressed concerns about his alcohol use contributing to his poor functioning. He was willing to take Vistaril and trazodone for anxiety and insomnia respectively. He also was willing to take the thiamine given his alcohol use disorder. He was open to referral to therapy but was resistant to an antipsychotic at this time. He worked with the social work team for outpatient referrals and appointments. He had significant improvement during the stay. He was able to contract for safety outside the hospital prior to discharge. During the hospitalization, the patient had routine laboratory studies which were within normal limits except for a few outliers. Additionally, there was a general medical evaluation which was also within normal limits and revealed no new acute processes. Hospital Course At the time of discharge, he denied psychosis or lethality, and psychosis was resolving. Mood and anxiety were well managed. The patient endorsed a plan to avoid all drugs of abuse and follow up with the aftercare recommendations of the treatment team. The patient was evaluated and deemed to be absent credible lethality and had achieved the maximum benefit from an inpatient hospitalization, and so was discharged. Hospital Course During the hospitalization, the patient had routine laboratory studies which were within normal limits except for a few outliers. Additionally, there was a general medical evaluation which was also within normal limits and revealed no new acute processes. At the time of discharge, lethality was denied and psychosis was resolving. Mood and anxiety were well managed. The patient endorsed a plan to avoid all drugs of abuse and follow up with the aftercare recommendations of the treatment team. The patient was evaluated and deemed to be absent credible lethality and had achieved the maximum benefit from an inpatient hospitalization, and so was discharged. Patient was started on Invega and titrated up to a dose of 6 mg daily to target his hallucinations and paranoia. He had reported having difficulties with managing his anger as well. He had ultimately been agreeable to intramuscular Invega which was given at 234 mg prior to discharge. Patient was also provided a prescription electronically to receive his next IM dose of Invega on 02/10/2024 and if completed to then discontinue oral Invega and maintain compliance with his medications by taking a monthly Invega Sustenna given by his physician. Meds NPU Home Medications ?Medication ?Instructions ?Recorded ?Confirmed ?Last Taken ?Type hydroxyzine pamoate 25 mg capsule 50 mg (2 x 25 mg) PO Q6H PRN 11/03/23 07/30/24 Unknown Rx Anxiety 30 days #120 caps trazodone 50 mg tablet 50 mg PO BEDTIME PRN Sleep 30 days 11/03/23 07/30/24 Unknown Rx #30 tabs paliperidone palmitate 156 mg/mL 156 mg IM Q30D #1 mL 02/04/24 07/30/24 Unknown Rx intramuscular syringe (Invega Sustenna) Allergies Allergy/AdvReac Type Severity Reaction Status Date / Time No Known Allergies Allergy Verified 07/04/24 19:49 PFSH NPU PFSH: Medical History Marijuana abuse Family History Denies family history of Diabetes CAD (coronary artery disease) Hypertension Stroke Social History Smoking and tobacco/nicotine status: current every day tobacco/nicotine user e-cigarettes E-Cigarette Details: vaporizer device and without nicotine E-cig/vape details: Occasional use. Quit status (tobacco/nicotine): has quit using Year quit tobacco: 2008 Second hand smoke exposure: Yes Alcohol intake: former Substance/Drug Use: former Current occupational status: employed Current occupation: [employer] Current gender identity: Male Mental Status Exam MSE Comments: This is an overweight versus obese white male in hospital scrubs with limited grooming and eye contact. No abnormal movements except for psychomotor retardation. Cooperative with exam in mild to distress. Speech was decreased rate and volume. Mood described as a little better than yesterday, affect mostly subdued. Thought process organized. Thought content: Patient denied suicidal or homicidal ideation but reports having voices telling him to kill himself, he endorsed paranoia but no delusional content was noted, he endorses hearing voices and also reports seeing things visual hallucinations. The patient reported hearing voices that tell them to harm themselves, but they usually ignore these voices. The patient also reported feeling followed by ghosts and seeing things. The patient denied having any current thoughts of self-harm or suicide. The patient reports to be in a slightly better state than the previous day after receiving some medication. Attention and concentration were intact and memory appeared somewhat reliable but none were formally tested. He is alert and oriented x3. Attention and concentration were limited, impulse control is limited versus impaired. Vitals/I&O/Wt Last Vital Signs Temp 98.6 F 07/30/24 13:17 Pulse 87 07/30/24 13:17 Resp 16 07/30/24 13:17 BP 144/99 07/30/24 13:17 Pulse Ox 98 07/30/24 13:17 O2 Del Method Room Air 07/30/24 13:17 07/29/24 07/30/24 07/30/24 22:59 06:59 14:59 Intake Total 0 / 0 Balance 0 / 0 Weight last 48 hrs Weight 99.79 kg Data NPU 07/30/24 02:27 07/30/24 02:27 A&P Assessment and plan (1) Borderline personality disorder: (2) Cannabis use disorder, severe, dependence: (3) Suicidal ideation: (4) Alcohol intoxication: (5) Acute psychosis: (6) Schizophrenia: (7) Hallucinations: (8) Marijuana abuse: Plan This is a 28-year-old white male with a significant history of addiction issues and psychiatric morbidity including recent diagnoses of schizophrenia and borderline personality disorder who had presented to the hospital about 7 months ago endorsing really struggling and needing assistance with urges to self-harm, off medication and with active addiction including UDS positive for cannabis and presenting with continued addiction with positive cannabis on this admission. The patient has a history of mental health issues and has been hospitalized multiple times. He reported thinking he should start his medications again to deal with the 1. Encourage initiation of antipsychotic. We discussed restarting Invega in the morning. 2. Continue every 15 minute checks for safety. 3. Encourage individual, group and milieu therapy. 4. Encouraged sober living treatments after discharge at the highest level of care to which he is willing to commit. 5. Get collateral information. 6. Evaluate against the backdrop of a 96-hour hold. PDMP PDMP Reviewed: Not Reviewed Involuntary Hold Information 96 Hour Hold: 96 Hour Involuntary Admission: Yes Other Hold: Hold End Date: 02/05/24 Attestations NPU Medical Necessity Statement*: Inpatient hospitalization is medically necessary and the clinically appropriate intervention at this time. We will monitor medications and make changes and adjustments as indicated. He will be in the hospital for over 2 midnights. Likely length of stay 4 to 6 days. Coding Level of Care Code Acute Code for g Fwd Diagnoses Borderline personality disorder F60.3 Cannabis use disorder, severe, dependence F12.20 Suicidal ideation R45.851 Alcohol intoxication F10.929 Acute psychosis F23 Schizophrenia F20.9 Hallucinations R44.3 Marijuana abuse F12.10
--- NOTE | 2024-07-30 16:16 | PC.NURSE ---
28 year old male patient admitted to NPU after presenting to ED reporting SI and AH. Patient currently denies SI/HI/AVH. He has a history of SA by cutting arm. He has no significant past medical history and NKDA. He does endorse using marijuania daily and social alcohol use. He reports that his father was addicted to alcohol and both parents used meth. He endorses AVH and intrusive thoughts. His affect is appropriate. He is pleasant and cooperative with care.
[2024-07-30 20:47] VITALS: BP 144/86; PULSE 83; RESP 20; TEMP 36.9; O2SAT 94
[2024-07-31 06:00] VITALS: BP 142/98; PULSE 68; RESP 20; TEMP 36.6; O2SAT 99
--- NOTE | 2024-07-31 08:15 | P.NPUDS_ITS ---
Diagnoses at Discharge Discharge Diagnosis (1) Borderline personality disorder: Status: Acute (2) Cannabis use disorder, severe, dependence: Status: Acute (3) Suicidal ideation: Status: Resolved (4) Alcohol intoxication: Status: Inactive (5) Acute psychosis: Status: Resolved (6) Schizophrenia: Status: Acute (7) Hallucinations: Status: Resolved (8) Marijuana abuse: Status: Inactive Reason for Visit Reason for Visit: MHE Brief History: Chief Complaint: MHE HPI NPU History of Present Illness Ivan Dover is a 28 year old male who presented to the emergency department with the following report: Chief Complaint: Psychiatric Symptoms Stated Complaint: MHE Time Seen by Provider: 07/30/24 01:23 History of Present Illness: 28-year-old man with a history of border line personality disorder, cannabis use disorder, history of suicidal ideations, alcohol abuse, psychosis and schi zophrenia who presents to the emergency room today with hallucinations and he says they have been telling him to hurt himself. He has no specific plan at this time. He was admitted to the neuropsychiatric unit for definitive treatment of those issues. He is known to [facility] through previous outpatient admissions. The last of which was in January of last year and an excerpt of that note is included below for context and the fact that there have been no substantive changes. He presents today reporting that he had been off his medication for some time and that he was really wanting to get stable again. He reports that he has been having limited difficulties with addiction but mostly just having problems being off his medication and that the other day he started having voices returning and those being overwhelming. We discussed the risks, benefits and alternatives of restarting his medication he had been on in the past specifically the antipsychotic and he understood and agreed to proceed as is documented in this note. He reports has been sometime since he had been on the medication and he was hopeful that with the medications restarted he would not be able to have the voices go away and he would be better otherwise. Per his 02/04/2024 [facility] inpatient psychiatric discharge summary: Diagnoses at Discharge Discharge Diagnosis (1) Acute psychosis: Status: Resolved (2) Borderline personality disorder: Status: Acute (3) Cannabis use disorder, severe, depen dence: Status: Acute (4) Suicidal ideation: Status: Resolved (5) Alcohol intoxication: Status: Acute (6) Schizophrenia: Status: Acute (7) Hallucinations: Status: Resolved (8) Marijuana abuse: Status: Inactive Reason for Visit Reason for Visit: ETOH Brief History: History of Present Illness Ivan Dover is a 28 year old male who presented to the emergency department with the following report: Chief Complaint: Altered Mental Status Stated Complaint: ETOH Time Seen by Provider: 01/30/24 05:33 Source: patient, EMS and police Mode of arrival: EMS Limitations: no limitations History of Present Illness: 28-year-old male that has a history of d epression along with schizophrenia and alcohol abuse patient brought in by police and EMS tonight for paranoia. Patient been drinking alcohol mother called EMS because he had been having anger outburst around the house this morning. She states has been very erratic she has been bringing Ouija boards to cemeteries and manic. Patient here is angry and delusional will not give much information He was admitted to the neuropsychiatric unit for definitive treatment of those issues. He is known to [facility] psychiatry services through inpatient and outpatient services. His last outpatient visit was December 2022 and his last inpatient stay was in October of this year. An excerpt of that discharge summary is included below for context. His UDS was positive for cannabis and benzodiazepines which were likely a confounding finding from medications given in the emergency department. Things have been going well for the last almost 3 months since he was discharged. He reports that he felt he was doing really well but then last night when he went home from being out with people that he knows she got extremely angry in a way that he could explain and felt that he should come to the hospital to be checked out. He denied that he really ever took the medication when he was home. We discussed him considering the risks, benefits and alternatives of some of these antipsychotics and mood stabilizers and he understood and agreed to proceed as is documented in this note. Per his 11/03/2023 [facility] inpatient psychiatric discharge summary: Discharge Diagnosis (1) Borderline personality disorder: Status: Acute (2) Cannabis use disorder, severe, depen dence: Status: Acute (3) Suicidal ideation: Status: Resolved (4) Alcohol intoxication: Status: Acute (5) Acute psychosis: Status: Resolved (6) Schizophrenia: Status: Acute (7) Hallucinations: Status: Resolved (8) Marijuana abuse: Status: Inactive Reason for Visit Reason for Visit: SI Brief History: History of Present Illness Ivan Dover is a 28 year old male who presented to the emergency department with the following report: Chief Complaint: Psychiatric Symptoms Stated Complaint: SI Time Seen by Provider: 10/28/23 23:48 History of Present Illness: 28-year-old man with history of depressi on who presents to the emergency room by ambulance with suicidal thoughts. He states he was thinking about cutting himself. Apparently has been drinking and smoking some marijuana. He walks into the emergency room. No focal motor deficits. No specific plan at this time. He was admitted to the neuropsychiatric unit for definitive treatment of those issues. He is known to the system through inpatient and outpatient services and an excerpt of his last hospitalization is included below for history and context. After that hospitalization he did follow-up with [facility] with good adherence until December 2022. He presents today reporting: Chief complaint The patient was brought to the hospital after an episode of anger and yelling in public. The patient reported feeling upset and hearing voices that became overwhelming. History of the present complaint The patient reported an incident that led to his hospitalization. He mentioned that he became upset and started yelling in a public area, which resulted in the police being called. The patient did not provide specific details about the trigger of his emotional outburst. This is his fourth hospitalization, with the last one occurring in 2019. The patient had been receiving outpatient care at [facility] under Dr. Branch until sometime last year. After that, his mother arranged for him to see another doctor at [facility]. However, he stopped taking his medication after he stopped seeing Dr. Cline. He did not continue his medication even after starting treatment at [facility]. The patient reported that he felt he did not need the medication anymore. The patient admitted to using cannabis and THC regularly, and he recently started drinking alcohol again after a period of abstinence. He denied using any other drugs recently or long-term, and he has never been to rehab or had any charges related to drug use. The patient reported hearing voices, which he described as overwhelming and constant. He stated that these voices were present even when he was on medication and seeing Dr. Branch. He has been on various medications in the past, including Abilify, Geodon, Zyprexa, Seroquel, and Latuda, but none of these medications have completely alleviated his symptoms. The patient was brought to the hospital after an episode of anger and yelling, which he attributed to the voices becoming out of control. Since his admission, he has been given some medication, which he felt was helpful. He acknowledged that while the voices do not completely go away, medication might help manage his symptoms. Currently, the patient reported feeling a little better than the previous day. He denied having any thoughts of self-harm or suicide, but he mentioned that the voices often tell him to harm himself, which he usually ignores. He also reported experiencing paranoia, specifically feeling like ghosts are following him. In addition to hearing voices, the patient also reported seeing things. Mental health history The patient has a history of multiple hospitalizations, with this being the fourth one. The last hospitalization was in 2019. The patient has been to this hospital three times and once to [place]. The patient was previously under the ca re of Dr. Branch at [facility] and later at [facility]. The patient has been on various medications including Abilify, Geodon, Zyprexa, Seroquel, and Latuda. However, the patient stopped taking medication after ceasing to see Dr. Cline, feeling that they didn't need it. The patient reported that the voices never went away even when on medication. Social history The patient reported using THC and cannabis regularly. The patient started drinking alcohol again recently after a period of abstinence. The patient denied any use of other drugs or having any problems with substances like methamphetamine or opiates. The patient has never been to rehab and has no charges related to drug use. Per his 12/29/2019 [facility] inpatient psychiatric discharge summary: History of Present Illness Ivan Dover is a 24 year old male who presented to the emergency department with the following report: Chief Complaint: Psychiatric Symptoms Stated Complaint: INTENTIONAL OVERDOSE Time Seen by Provider: 12/23/19 07:53 History of Present Illness: HPI Narrative: 24-year-old male patient presents to the emergency department via EMS. Patient was discharged from neuropsychiatric unit on 12/21/2019. He reports 1 hour prior to arrival, at approximately 630 to 7 AM, took 15 to 16 tablets of 2 mg Risperdal. Prescribed Risperdal from [facility], 12/17/2019. He reports chronic depression, stress. He denies life changing or stressful event that led to intentional overdose. He reports auditory hallucinations, states voices are telling him to kill himself. He reports voices have been present since November. He has battled depression since age 14 with previous self-harm of cutting himself. He lives with his mother. States his mother was aware of what occurred this morning and called 911 for assistance. Associated symptoms: Reports auditory hallucinations, depression and suicidal ideation; Deny visual hallucinations or homicidal ideation He was admitted to the neuropsychiatric unit for the definitive treatment of those issues. He presents today reporting that he went home with the greatest of intentions and things just did not work out. He endorsed the part of the situation is that the voices have become untenable. And even no depression has been noted he reports the real issue is the voices are becoming so unmanageable that he feels the suicidal thinking and does feel a little bit of a dip in his mood. He reports that the voices got really bad about a year to a year and a half ago but acknowledges that the voices were there even before and he had ways to ignore them. Is just that about a year and a half ago it became overwhelming. He denies any other trials of medication other than the Risperdal and he reports that the voices never really dissipated. We discussed the risks, benefits and alternatives of initiating Abilify 10 mg p.o. every morning and he understood and agreed to proceed as is documented in this note. We reviewed his previous inpatient evaluation from last week and he denies any substantive changes and so an excerpt of that note is included below. Per his [facility] inpatient eval 12/18/2019: History of Present Illness Ivan Dover is a 24 year old male Ivan Dover is a 24-year-old male with no prior psychiatric history who was brought to the emergency room with the complaint described above. He says that he occasionally has suicidal thoughts. However he has no intent or plan. He does not seem to be particularly depressed. He spends his days playing his guitar and writing music. He feels that he is pretty good at playing guitar and writing music and sometimes will even play his guitar for a friend. He denies being depressed. However he does report the presence of auditory hallucinations. He hears more than 1 voice. There is no command nature to the hallucinations. He cannot identify any voices. He cannot tell whether they are coming from inside of his head or outside of his head. He does not find them typically troubling and is not too concerned about them. On interview today, he is not too concerned about much of anything. He admits that he smokes marijuana and that it helps relax him. He is guarded around how much he smokes. He claims to not really smoke very much. He says that he last went a whole day without smoking a few days ago. Other than getting rid of the auditory pelaez ucinations, he has no other goals. Appetite and sleep are good by his report Laboratory Tests 12/16/2009/02/20 [id number]:5022:[id number] Urine Opiates Screen Negative Ur Barbiturates Screen Negative Ur Phencyclidine Scrn Negative Ur Amphetamines Screen Negative U Benzodiazepines Scrn Negative Urine Cocaine Screen Negative U Marijuana (THC) Screen Positive H Ethyl Alcohol < 10 Past psychiatric history: He has no history of inpatient psychiatric treatment, outpatient psychiatric treatment. He did see a counselor for a while but does not really want to talk about that. Family psychiatric history: Patient states that there is nobody else in the family that has been treated for mental health problems. Nobody in the family has experienced auditory hallucinations. Nobody else in the family has an alcohol or substance abuse problem. Social history: The patient currently lives with his mother. His mother is employed full-time. The patient is unemployed. The patient has no intention of finding employment. I am not really very good at that kind of thing. He is a high school graduate. He was attending the local college and planning on a career in game design. He stopped attending school 4 years ago. He has no plans to return. He says that he has friends locally but does not name any of them. He describes no activities in which he engages with those friends. He has 2 brothers and a sister. He says he does not see them much. Medical history Records indicate that he is in good medical health. He is on no medications. Laboratory evaluation show that he has a mild elevation in RBC and his nonfasting blood sugar was 129. His urine drug screen was positive for marijuana. Otherwise the UDS was negative. Hospital Course During the hospitalization, the patient had routine laboratory studies which were within normal limits except for a few outliers. Additionally, there was a general medical evaluation which was also within normal limits and revealed no new acute processes. At the time of discharge, lethality was denied and psychosis was resolving. Mood and anxiety were well managed. The patient endorsed a plan to avoid all drugs of abuse and follow up with the aftercare recommendations of the treatment team. The patient was evaluated and deemed to be absent credible lethality and had achieved the maximum benefit from an inpatient hospitalization, and so was discharged. Patient was started on Invega and titrated up to a dose of 6 mg daily to target his hallucinations and paranoia. He had reported having difficulties with managing his anger as well. He had ultimately been agreeable to intramuscular Invega which was given at 234 mg prior to discharge. Patient was also provided a prescription electronically to receive his next IM dose of Invega on 02/10/2024 and if completed to then discontinue oral Invega and maintain compliance with his medications by taking a monthly Invega Sustenna given by his physician. Hospital Course Hospital Course He was adjusting to the individual, group and milieu therapies provided. He presented with psychosis and active addiction, however this time he only was positive for cannabis. We discussed restarting his Invega and he was considering it. However, earlier this morning he was able to break out the top window pain in his room which is rather large and ran from the facility. He had no changes from his initial presentation during the stay. He was still on a 96- hour hold and so we contacted the police and he was apprehended and returned to the facility. Please see new encounter stream started later in the day. During the hospitalization, the patient had routine laboratory studies which were within normal limits except for a few outliers. Additionally, there was a general medical evaluation which was also within normal limits and revealed no new acute processes. Hospital Course At the time of discharge, he was still endorsing the same psychotic symptoms that he presented with. And the only reason why his hospitalization ended was because he absconded. Involuntary Hold Information Hold Status: Legal Status: 96 Hour Hold Date/Time Hold Expires: 08/05/2024 0132 96 Hour Hold: 96 Hour Involuntary Admission: Yes Other Hold: Hold End Date: 02/05/24 Mental Status Exam MSE Comments: This is an overweight versus obese white male in hospital scrubs with limited grooming and eye contact. No abnormal movements except for psychomotor retardation. Cooperative with exam in mild to distress. Speech was decreased rate and volume. Mood described as a little better than yesterday, affect mostly subdued. Thought process organized. Thought content: Patient denied suicidal or homicidal ideation but reports having voices telling him to kill himself, he endorsed paranoia but no delusional content was noted, he endorses hearing voices and also reports seeing things visual hallucinations. The patient reported hearing voices that tell them to harm themselves, but they usually ignore these voices. The patient also reported feeling followed by ghosts and seeing things. The patient denied having any current thoughts of self-harm or suicide. The patient reports to be in a slightly better state than the previous day after receiving some medication. Attention and concentration were intact and memory appeared somewhat reliable but none were formally tested. He is alert and oriented x3. Attention and concentration were limited, impulse control is limited versus impaired. Discharge Data Studies Completed and Pending: Laboratory Results WBC 8.20 10^3/uL (3.2 9-11.43) 07/30/24 02:27 RBC 5.00 10^6/uL (3.8 5-5.65) 07/30/24 02:27 Hgb 14.60 g/dL (11.27 -16.99) 07/30/24 02:27 Hct 42.8 % (37-53) 07/30/24 02:27 MCV 85.6 fl (82-101) 07/30/24 02:27 MCH 29.2 pg (27-33) 07/30/24 02:27 MCHC 34.1 g/dL (30-55) 07/30/24 02:27 RDW 13.1 % (12.1-15.1 ) 07/30/24 02:27 Plt Count 194 10^3/cmm (157 -399) 07/30/24 02:27 MPV 10.7 fL (7.4-10.4 ) H 07/30/24 02:27 Neut % (Auto) 64.0 % 07/30/24 02:27 Lymph % (Auto) 27.4 % 07/30/24 02:27 Clay % (Auto) 6.2 % 07/30/24 02:27 Eos % (Auto) 1.8 % 07/30/24 02:27 Baso % (Auto) 0.2 % 07/30/24 02:27 Neut # (Auto) 5.24 10^3/uL (1.8 -7.7) 07/30/24 02:27 Lymph # (Auto) 2.3 10^3/uL (0.8- 4.8) 07/30/24 02:27 Clay # (Auto) 0.5 10^3/uL (0.2- 0.9) 07/30/24 02:27 Eos # (Auto) 0.2 10^3/uL (0.0- 0.8) 07/30/24 02: Baso # (Auto) 0.0 10^3/uL (0.0- 0.1) 07/30/24 02: Nucleated RBC % (a uto) 0 % 07/30/24 02: Nucleated RBCs # 0.0 /100WBC 07/30/24 02:27 Sodium 140 mmol/L (136-1 45) 07/30/24 02:27 Potassium 4.1 mmol/L (3.5-5 .1) 07/30/24 02:27 Chloride 101 mmol/L (98-10 7) 07/30/24 02:27 Carbon Dioxide 27 mmol/L (22-29) 07/30/24 02:27 Anion Gap 16.1 (5-19) 07/30/24 02:27 BUN 14 mg/dL (6-20) 07/30/24 02:27 Creatinine 0.8 mg/dL (0.7-1. 2) 07/30/24 02:27 GFR Calculation 115.1 mL/min (90- 130) 07/30/24 02:27 Glucose 92 mg/dL (65-115) 07/30/24 02:27 Calculated Osmolal ity 290 mOsm/kg (285- 295) 07/30/24 02:27 Calcium 9.9 mg/dL (8.5-10 .5) 07/30/24 02:27 Total Bilirubin 0.6 mg/dL (0.15-1 .2) 07/30/24 02:27 AST 44 U/L (0-40) H 07/30/24 02:27 ALT 24 U/L (0-41) 07/30/24 02:27 Alkaline Phosphata se 69 U/L (40-130) 07/30/24 02:27 Total Protein 8.0 g/dL (6.6-8.7 ) 07/30/24 02:27 Albumin 5.0 g/dL (3.5-5.2 ) 07/30/24 02:27 Globulin 3.0 g/dL (1.3-4.6 ) 07/30/24 02:27 TSH 5.10 uIU/mL (0.27 -4.20) H 07/30/24 02:27 Urine Color Yellow (Yellow) 07/30/24 01:15 Urine Appearance Clear (CLEAR) 07/30/24 01:15 Urine pH 6.5 (5-7) 07/30/24 01:15 Ur Specific Gravit y 1.008 (1.005-1.0 30) 07/30/24 01:15 Urine Protein Trace (Negative) A 07/30/24 01:15 Urine Glucose (UA) Negative (Normal ) 07/30/24 01:15 Urine Ketones Negative (Negati ve) 07/30/24 01:15 Urine Blood Trace (Negative) A 07/30/24 01:15 Urine Nitrate Negative (Negati ve) 07/30/24 01:15 Urine Bilirubin Negative (Negati ve) 07/30/24 01:15 Urine Urobilinogen 0.2 mg/dL (Negati ve) 07/30/24 01:15 Ur Leukocyte Keri ase Negative (Negati ve) 07/30/24 01:15 Urine RBC 0-2 /hpf (0-2) 07/30/24 01:15 Urine WBC 0-5 /hpf (0-5) 07/30/24 01:15 Ur Squamous Epith Cells 0-5 /hpf (0-5) 07/30/24 01:15 Amorphous Sediment Not Reportable 07/30/24 01:15 Urine Bacteria None seen /hpf (N ONE) 07/30/24 01:15 Hyaline Casts 2.05 /lpf 07/30/24 01:15 Salicylates < 0.3 mg/dL (3-10 ) L 07/30/24 02:27 Urine Opiates Scre en Negative ng/mL (N egative) 07/30/24 01:15 Acetaminophen < 5.0 ug/mL (10-3 0) L 07/30/24 02:27 Ur Barbiturates Sc reen Negative ng/mL (N egative) 07/30/24 01:15 Ur Phencyclidine S crn Negative ng/mL (N egative) 07/30/24 01:15 Ur Amphetamines Sc reen Negative ng/mL (N egative) 07/30/24 01:15 U Benzodiazepines Scrn Negative ng/mL (N egative) 07/30/24 01:15 Urine Cocaine Scre en Negative ng/mL (N egative) 07/30/24 01:15 U Marijuana (THC) Screen Positive ng/mL (N egative) H 07/30/24 01:15 Ethyl Alcohol < 10 mg/dL (0-10) 07/30/24 02:27 Vitals: Last Vital Signs Temp 97.9 F 07/31/24 06:00 Pulse 68 07/31/24 06:00 Resp 20 H 07/31/24 06:00 BP 142/98 07/31/24 06:00 Pulse Ox 99 07/31/24 06:00 O2 Del Method Room Air 07/31/24 06:00 Discharge Plan Discharge Patient Disposition: Left Against Medical Advice Condition: Serious Prescriptions: No Action trazodone 50 mg Tablet 50 mg PO BEDTIME PRN (Reason: Sleep) 30 Days Qty: 30 1RF hydroxyzine pamoate 25 mg Capsule 50 mg PO Q6H PRN (Reason: Anxiety) 30 Days Qty: 120 1RF Invega Sustenna 156 mg/mL syringe 156 mg IM Q30D Qty: 1 0RF Rx Instructions: Patient due for this as second loading dose on 02/10/24. Discharge Orders: Discharge Order (Routine); Ordered 07/31/24 Ordered By: Davin Mcgovern Referrals: Ankur Mccurdy MD [Primary Care Provider, [facility]] Discharge Diet: Regular Discharge Activity: Resume usual activity Patient Instructions: Trazodone (By mouth) (Desyrel, Desyrel Dividose, Oleptro, Trazamine), Hydroxyzine (By mouth) (Vistaril), Paliperidone (By mouth) (Invega), Schizophrenia (DC), Borderline Personality Disorder (DC), Psychotic Disorder (DC), Suicide Prevention (DC), Opioid Safety Discharge Attestations NPU Time Spent in Discharge Care*: less than 30 min Specific Discharge Activities: Specific discharge activities: documenting/other paperwork Status at Discharge: Cognitive status at discharge: cognitively intact , Behavioral status at discharge: cooperative , Coding Level of Care Code Acute Code for [facility] Fwd Diagnoses Borderline personality disorder F60.3 Cannabis use disorder, severe, dependence F12.20 Suicidal ideation R45.851 Alcohol intoxication F10.929 Acute psychosis F23 Schizophrenia F20.9 Hallucinations R44.3 Marijuana abuse F12.10
== END 2024-07-31 07:14 | disposition left against medical advice (07) | DRG 885 ==
LOC: ER 02:58 → ER IP 05:42 → NP 10:53
PROVIDERS: Admitting Provider Psychiatry & Neurology Psychiatry; Emergency Provider Emergency Medicine; PCP Family Medicine; Visit Provider Psychiatry & Neurology Psychiatry
DX: F20.9 Schizophrenia, unspecified (principal); R45.851 Suicidal ideations; F60.3 Borderline personality disorder; Z91.128 Patient's intentional underdosing of medication regimen for other reason; F17.290 Nicotine dependence, other tobacco product, uncomplicated; F12.20 Cannabis dependence, uncomplicated; Z53.29 Procedure and treatment not carried out because of patient's decision for other reasons
CPT/HCPCS: 36415; 80053; 80306; 80307; 81001; 84443; 85025; 93005; 97150; 97165; 99285

== ENCOUNTER 2024-07-31 07:52 | Inpatient (IN) | payer MEDICAID, SELFPAY ==
[2024-07-31 07:55] VITALS: BP 182/106; PULSE 106; RESP 20; TEMP 36.8; O2SAT 98; BMI 32.1
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
--- NOTE | 2024-07-31 09:04 | PC.NURSE ---
per Dr. Gonzalez and Dr. Mcgovern, pt is to return to [facility] as previous inpatient, not to re-admit with new orders. [employer] Day Worker notified and per HS, room is ready for pt in [facility], denies needing report. pt transported to [facility] by x2 security guards.
[2024-07-31 09:07] VITALS: BP 136/90; PULSE 82; RESP 18; O2SAT 100
[2024-07-31 09:20] VITALS: BP 149/104; PULSE 90; RESP 17; TEMP 37.1; O2SAT 100
[2024-07-31 10:10] LABS: Basophils % 0.4 %; Eosinophils # 0.2 10^3/uL (0.0-0.8); Eosinophils % 2.2 %; Hematocrit 46.6 % (37-53); Lymphocytes # 1.7 10^3/uL (0.8-4.8); Lymphocytes % 23.8 %; Mean Corpuscular HGB Conc 33.7 g/dL (30-55); Mean Corpuscular Hemoglobin 28.4 pg (27-33); Mean Corpuscular Volume 84.4 fl (82-101); Mean Platelet Volume 10.7 fL (7.4-10.4); Monocytes # 0.4 10^3/uL (0.2-0.9); Monocytes % 5.1 %; Neutrophils # 4.94 10^3/uL (1.8-7.7); Neutrophils % 68.1 %; Nucleated Red Blood Cells % 0 %; Platelet Count 205 10^3/cmm (157-399); Red Blood Count 5.52 10^6/uL (3.85-5.65); Red Cell Distribution Width 12.8 % (12.1-15.1); White Blood Count 7.26 10^3/uL (3.29-11.43)
[2024-07-31 10:43] LABS: Alanine Aminotransferase 21 U/L (0-41); Alkaline Phosphatase 69 U/L (40-130); Anion Gap 18.7 (5-19); Aspartate Amino Transferase 28 U/L (0-40); Blood Urea Nitrogen 11 mg/dL (6-20); Carbon Dioxide 25 mmol/L (22-29); Chloride 99 mmol/L (98-107); Creatinine Clr Calc Pharmacy 168.9924; Globulin 3.2 g/dL (1.3-4.6); Glomerular Filtration Rate 115.1 mL/min (90-130); Glucose 125 mg/dL (65-115); Osmolality Calculated 289 mOsm/kg (285-295); Potassium 3.7 mmol/L (3.5-5.1); Sodium 139 mmol/L (136-145); Total Bilirubin 0.8 mg/dL (0.15-1.2); Total Protein 8.2 g/dL (6.6-8.7)
[2024-07-31 11:32] VITALS: BP 141/90; PULSE 85; RESP 17; O2SAT 97
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
[2024-07-31 14:00] VITALS: BP 144/83; PULSE 80; RESP 17; O2SAT 98
[2024-07-31 21:06] VITALS: BP 150/82; PULSE 116; RESP 18; TEMP 36.8; O2SAT 98; BMI 34.6
[2024-07-31] MEDS: hyDROXYzine 25 mg Capsule 50 MG PO (21:11)
[2024-07-31] MEDS: trazodone 50 mg Tablet PO (21:11)
--- NOTE | 2024-07-31 21:45 | P.NPUHP_ITS ---
Providers/Chief Complaint 2 Admitting Physician: Davin Mcgovern MD Primary Care Provider: Ankur Mccurdy MD Chief Complaint: mhe HPI [facility] History of Present Illness Ivan Dover is a 28 year old male who presented to the emergency department with the following report: Chief Complaint: Psychiatric Symptoms Stated Complaint: mhe Time Seen by Provider: 07/31/24 07:55 History of Present Illness: 28-year-old male who is an inpatient at the [facility] eloped from the [facility]. Was brought to the emergency room after being found again. Patient has a history of alcohol abuse and schizophrenia. Presented to the ER on 516 was having acute psychosis reviewing the notes it looks like it was due to his being off his medications. This morning he pushed the window out in the [facility] and eloped from the [facility]. He was eventually found in his home he had taken off his green paper scrubs today changed into regular close. He denies injuring himself while pushing out the window. He denies any injury or the course of climbing out of the window or walking around. According to security he did not have shoes when he left the department but when they found him he was in regular close and did have shoes on. He denies injuring himself anywhere he denies any pain. He states he left the [facility] because he was hearing voices that the staff was talking about having him killed. He also made comments about people were talking that he was trying to steal all the power . He was admitted to the neuropsychiatric unit for definitive treatment of those issues. Note that he absconded from the facility earlier this morning and was returned by the police and a new encounter was established instead of a continuation. An excerpt of his discharge summary from this morning will be included below for context and the fact that there have been no changes except for the fact that he broke out of the facility. He presented to the day reporting that he is not sure why he did what he did he just could not stay and we discussed the fact that he had reported some strange things to the emergency room doctor and he agreed he had been thinking some of those things 2. We discussed the risks, benefits and alternatives of restarting his Invega as we had discussed and he understood and agreed to proceed as is documented in this note. His mother had called and said that he was starting to get better on the Invega and she was really hopeful that that would be restarted. We discussed our interest in moving him to the long-acting injectable which she did not respond to that suggestion. Per his 07/31/2024 [facility] inpatient psychiatric discharge summary: Diagnoses at Discharge Discharge Diagnosis (1) Borderline personality disorder: Status: Acute (2) Cannabis use disorder, severe, dependence: Status: Acute (3) Suicidal ideation: Status: Resolved (4) Alcohol intoxication: Status: Inactive (5) Acute psychosis: Status: Resolved (6) Schizophrenia: Status: Acute (7) Hallucinations: Status: Resolved (8) Marijuana abuse: Status: Inactive Reason for Visit Reason for Visit: MHE Brief History: Chief Complaint: MHE HPI N[facility] History of Present Illness Ivan Dover is a 28 year old male who presented to the emergency department with the following report: Chief Complaint: Psychiatric Symptoms Stated Complaint: MHE Time Seen by Provider: 07/30/24 01:23 History of Present Illness: 28-year-old man with a history of borderline personality disorder, cannabis use disorder, history of suicidal ideations, alcohol abuse, psychosis and schizophrenia who presents to the emergency room today with hallucinations and he says they have been telling him to hurt himself. He has no specific plan at this time. He was admitted to the neuropsychiatric unit for definitive treatment of those issues. He is known to [facility] through previous outpatient admissions. The last of which was in January of last year and an excerpt of that note is included below for context and the fact that there have been no substantive changes. He presents today reporting that he had been off his medication for some time and that he was really wanting to get stable again. He reports that he has been having limited difficulties with addiction but mostly just having problems being off his medication and that the other day he started having voices returning and those being overwhelming. We discussed the risks, benefits and alternatives of restarting his medication he had been on in the past specifically the antipsychotic and he understood and agreed to proceed as is documented in this note. He reports has been sometime since he had been on the medication and he was hopeful that with the medications restarted he would not be able to have the voices go away and he would be better otherwise. Per his 02/04/2024 [facility] inpatient psychiatric discharge summary: Diagnoses at Discharge Discharge Diagnosis (1) Acute psychosis: Status: Resolved (2) Borderline personality disorder: Status: Acute (3) Cannabis use disorder, severe, dependence: Status: Acute (4) Suicidal ideation: Status: Resolved (5) Alcohol intoxication: Status: Acute (6) Schizophrenia: Status: Acute (7) Hallucinations: Status: Resolved (8) Marijuana abuse: Status: Inactive Reason for Visit Reason for Visit: ETOH Brief History: History of Present Illness Ivan Dover is a 28 year old male who presented to the emergency department with the following report: Chief Complaint: Altered Mental Status Stated Complaint: ETOH Time Seen by Provider: 01/30/24 05:33 Source: patient, EMS and police Mode of arrival: EMS Limitations: no limitations History of Present Illness: 28-year-old male that has a history of depression along with schizophrenia and alcohol abuse patient brought in by police and EMS tonight for paranoia. Patient been drinking alcohol mother called EMS because he had been having anger outburst around the house this morning. She states has been very erratic she has been bringing [employer] boards to cemeteries and manic. Patient here is angry and delusional will not give much information He was admitted to the neuropsychiatric unit for definitive treatment of those issues. He is known to [facility] psychiatry services through inpatient and outpatient services. His last outpatient visit was December 2022 and his last inpatient stay was in October of this year. An excerpt of that discharge summary is included below for context. His UDS was positive for cannabis and benzodiazepines which were likely a confounding finding from medications given in the emergency department. Things have been going well for the last almost 3 months since he was discharged. He reports that he felt he was doing really well but then last night when he went home from being out with people that he knows she got extremely angry in a way that he could explain and felt that he should come to the hospital to be checked out. He denied that he really ever took the medication when he was home. We discussed him considering the risks, benefits and alternatives of some of these antipsychotics and mood stabilizers and he understood and agreed to proceed as is documented in this note. Per his 11/03/2023 [facility] inpatient psychiatric discharge summary: Discharge Diagnosis (1) Borderline personality disorder: Status: Acute (2) Cannabis use disorder, severe, dependence: Status: Acute (3) Suicidal ideation: Status: Resolved (4) Alcohol intoxication: Status: Acute (5) Acute psychosis: Status: Resolved (6) Schizophrenia: Status: Acute (7) Hallucinations: Status: Resolved (8) Marijuana abuse: Status: Inactive Reason for Visit Reason for Visit: SI Brief History: History of Present Illness Ivan Dover is a 28 year old male who presented to the emergency department with the following report: Chief Complaint: Psychiatric Symptoms Stated Complaint: SI Time Seen by Provider: 10/28/23 23:48 History of Present Illness: 28-year-old man with history of depression who presents to the emergency room by ambulance with suicidal thoughts. He states he was thinking about cutting himself. Apparently has been drinking and smoking some marijuana. He walks into the emergency room. No focal motor deficits. No specific plan at this time. He was admitted to the neuropsychiatric unit for definitive treatment of those issues. He is known to the system through inpatient and outpatient services and an excerpt of his last hospitalization is included below for history and context. After that hospitalization he did follow-up with [facility] with good adherence until December 2022. He presents today reporting: Chief complaint The patient was brought to the hospital after an episode of anger and yelling in public. The patient reported feeling upset and hearing voices that became overwhelming. History of the present complaint The patient reported an incident that led to his hospitalization. He mentioned that he became upset and started yelling in a public area, which resulted in the police being called. The patient did not provide specific details about the trigger of his emotional outburst. This is his fourth hospitalization, with the last one occurring in 2019. The patient had been receiving outpatient care at [facility] under Dr. Branch until sometime last year. After that, his mother arranged for him to see another doctor at [facility]. However, he stopped taking his medication after he stopped seeing Dr. Cline. He did not continue his medication even after starting treatment at [facility]. The patient reported that he felt he did not need the medication anymore. The patient admitted to using cannabis and THC regularly, and he recently started drinking alcohol again after a period of abstinence. He denied using any other drugs recently or long-term, and he has never been to rehab or had any charges related to drug use. The patient reported hearing voices, which he described as overwhelming and constant. He stated that these voices were present even when he was on medication and seeing Dr. Branch. He has been on various medications in the past, including Abilify, Geodon, Zyprexa, Seroquel, and Latuda, but none of these medications have completely alleviated his symptoms. The patient was brought to the hospital after an episode of anger and yelling, which he attributed to the voices becoming out of control. Since his admission, he has been given some medication, which he felt was helpful. He acknowledged that while the voices do not completely go away, medication might help manage his symptoms. Currently, the patient reported feeling a little better than the previous day. He denied having any thoughts of self-harm or suicide, but he mentioned that the voices often tell him to harm himself, which he usually ignores. He also reported experiencing paranoia, specifically feeling like ghosts are following him. In addition to hearing voices, the patient also reported seeing things. Mental health history The patient has a history of multiple hospitalizations, with this being the fourth one. The last hospitalization was in 2019. The patient has been to this hospital three times and once to [place]. The patient was previously under the care of Dr. Branch at [facility] and later at [facility]. The patient has been on various medications including Abilify, Geodon, Zyprexa, Seroquel, and Latuda. However, the patient stopped taking medication after ceasing to see Dr. Cline, feeling that they didn't need it. The patient reported that the voices never went away even when on medication. Social history The patient reported using THC and cannabis regularly. The patient started drinking alcohol again recently after a period of abstinence. The patient denied any use of other drugs or having any problems with substances like methamphetamine or opiates. The patient has never been to rehab and has no charges related to drug use. Per his 12/29/2019 [facility] inpatient psychiatric discharge summary: History of Present Illness Ivan Dover is a 24 year old male who presented to the emergency department with the following report: Chief Complaint: Psychiatric Symptoms Stated Complaint: INTENTIONAL OVERDOSE Time Seen by Provider: 12/23/19 07:53 History of Present Illness: HPI Narrative: 24-year-old male patient presents to the emergency department via EMS. Patient was discharged from neuropsychiatric unit on 12/21/2019. He reports 1 hour prior to arrival, at approximately 630 to 7 AM, took 15 to 16 tablets of 2 mg Risperdal. Prescribed Risperdal from neuropsych, 12/17/2019. He reports chronic depression, stress. He denies life changing or stressful event that led to intentional overdose. He reports auditory hallucinations, states voices are telling him to kill himself. He reports voices have been present since November. He has battled depression since age 14 with previous self-harm of cutting himself. He lives with his mother. States his mother was aware of what occurred this morning and called 911 for assistance. Associated symptoms: Reports auditory hallucinations, depression and suicidal ideation; Deny visual hallucinations or homicidal ideation He was admitted to the neuropsychiatric unit for the definitive treatment of those issues. He presents today reporting that he went home with the greatest of intentions and things just did not work out. He endorsed the part of the situation is that the voices have become untenable. And even no depression has been noted he reports the real issue is the voices are becoming so unmanageable that he feels the suicidal thinking and does feel a little bit of a dip in his mood. He reports that the voices got really bad about a year to a year and a half ago but acknowledges that the voices were there even before and he had ways to ignore them. Is just that about a year and a half ago it became overwhelming. He denies any other trials of medication other than the Risperdal and he reports that the voices never really dissipated. We discussed the risks, benefits and alternatives of initiating Abilify 10 mg p.o. every morning and he understood and agreed to proceed as is documented in this note. We reviewed his previous inpatient evaluation from last week and he denies any substantive changes and so an excerpt of that note is included below. Per his [facility] inpatient eval 12/18/2019: History of Present Illness Ivan Dover is a 24 year old male Ivan Dover is a 24-year-old male with no prior psychiatric history who was brought to the emergency room with the complaint described above. He says that he occasionally has suicidal thoughts. However he has no intent or plan. He does not seem to be particularly depressed. He spends his days playing his guitar and writing music. He feels that he is pretty good at playing guitar and writing music and sometimes will even play his guitar for a friend. He denies being depressed. However he does report the presence of auditory hallucinations. He hears more than 1 voice. There is no command nature to the hallucinations. He cannot identify any voices. He cannot tell whether they are coming from inside of his head or outside of his head. He does not find them typically troubling and is not too concerned about them. On interview today, he is not too concerned about much of anything. He admits that he smokes marijuana and that it helps relax him. He is guarded around how much he smokes. He claims to not really smoke very much. He says that he last went a whole day without smoking a few days ago. Other than getting rid of the auditory hallucinations, he has no other goals. Appetite and sleep are good by his report Laboratory Tests 12/16/2009/02/20 [id number]:5022:[id number] Urine Opiates Screen Negative Ur Barbiturates Screen Negative Ur Phencyclidine Scrn Negative Ur Amphetamines Screen Negative U Benzodiazepines Scrn Negative Urine Cocaine Screen Negative U Marijuana (THC) Screen Positive H Ethyl Alcohol < 10 Past psychiatric history: He has no history of inpatient psychiatric treatment, outpatient psychiatric treatment. He did see a counselor for a while but does not really want to talk about that. Family psychiatric history: Patient states that there is nobody else in the family that has been treated for mental health problems. Nobody in the family has experienced auditory hallucinations. Nobody else in the family has an alcohol or substance abuse problem. Social history: The patient currently lives with his mother. His mother is employed full-time. The patient is unemployed. The patient has no intention of finding employment. I am not really very good at that kind of thing. He is a high school graduate. He was attending the local college and planning on a career in game design. He stopped attending school 4 years ago. He has no plans to return. He says that he has friends locally but does not name any of them. He describes no activities in which he engages with those friends. He has 2 brothers and a sister. He says he does not see them much. Medical history Records indicate that he is in good medical health. He is on no medications. Laboratory evaluation show that he has a mild elevation in RBC and his nonfasting blood sugar was 129. His urine drug screen was positive for marijuana. Otherwise the UDS was negative. Hospital Course During the hospitalization, the patient had routine laboratory studies which were within normal limits except for a few outliers. Additionally, there was a general medical evaluation which was also within normal limits and revealed no new acute processes. At the time of discharge, lethality was denied and psychosis was resolving. Mood and anxiety were well managed. The patient endorsed a plan to avoid all drugs of abuse and follow up with the aftercare recommendations of the treatment team. The patient was evaluated and deemed to be absent credible lethality and had achieved the maximum benefit from an inpatient hospitalization, and so was discharged. Patient was started on Invega and titrated up to a dose of 6 mg daily to target his hallucinations and paranoia. He had reported having difficulties with managing his anger as well. He had ultimately been agreeable to intramuscular Invega which was given at 234 mg prior to discharge. Patient was also provided a prescription electronically to receive his next IM dose of Invega on 02/10/2024 and if completed to then discontinue oral Invega and maintain compliance with his medications by taking a monthly Invega Sustenna given by his physician. Hospital Course He was adjusting to the individual, group and milieu therapies provided. He presented with psychosis and active addiction, however this time he only was positive for cannabis. We discussed restarting his Invega and he was considering it. However, earlier this morning he was able to break out the top window pain in his room which is rather large and ran from the facility. He had no changes from his initial presentation during the stay. He was still on a 96- hour hold and so we contacted the police and he was apprehended and returned to the facility. Please see new encounter stream started later in the day. During the hospitalization, the patient had routine laboratory studies which were within normal limits except for a few outliers. Additionally, there was a general medical evaluation which was also within normal limits and revealed no new acute processes. Hospital Course At the time of discharge, he was still endorsing the same psychotic symptoms that he presented with. And the only reason why his hospitalization ended was because he absconded. Meds NPU Home Medications ?Medication ?Instructions ?Recorded ?Confirmed ?Last Taken ?Type hydroxyzine pamoate 25 mg capsule 50 mg (2 x 25 mg) PO Q6H PRN 11/03/23 07/31/24 Unknown Rx Anxiety 30 days #120 caps trazodone 50 mg tablet 50 mg PO BEDTIME PRN Sleep 3 0 days 11/03/23 07/31/24 Unknown Rx #30 tabs paliperidone palmitate 156 mg/mL 156 mg IM Q30D #1 mL 02/04/24 07/31/24 Unknown Rx intramuscular syringe (Invega Sustenna) Allergies Allergy/AdvReac Type Severity Reaction Status Date / Time No Known Allergies Allergy Verified 07/04/24 19:49 PFSH NPU 2 PFSH: Medical History Marijuana abuse Family History Denies family history of Diabetes CAD (coronary artery disease) Hypertension Stroke Social History Smoking and tobacco/nicotine status: current every day tobacco/nicotine user e- cigarettes E-Cigarette Details: vaporizer device and without nicotine E-cig/vape details: Occasional use. Quit status (tobacco/nicotine): has quit using Year quit tobacco: 2008 Second hand smoke exposure: Yes Alcohol intake: former Substance/Drug Use: former Current occupational status: employed Current occupation: [employer] Current gender identity: Male Mental Status Exam 2 MSE Comments: This is an overweight versus obese white male in hospital scrubs with limited grooming and eye contact. No abnormal movements except for psychomotor retardation. Cooperative with exam in mild to distress. Speech was decreased rate and volume. Mood described as a little better than yesterday, affect mostly subdued. Thought process organized. Thought content: Patient denied suicidal or homicidal ideation but reports having voices telling him to kill himself, he endorsed paranoia but no delusional content was noted, he endorses hearing voices and also reports seeing things visual hallucinations. The patient reported hearing voices that tell them to harm themselves, but they usually ignore these voices. The patient also reported feeling followed by ghosts and seeing things. The patient denied having any current thoughts of self-harm or suicide. The patient reports to be in a slightly better state than the previous day after receiving some medication. Attention and concentration were intact and memory appeared somewhat reliable but none were formally tested. He is alert and oriented x3. Attention and concentration were limited, impulse control is limited versus impaired. Vitals/I&O/Wt Last Vital Signs Temp 98.2 F 07/31/24 21:06 Pulse 116 H 07/31/24 21:06 Resp 18 07/31/24 21:06 BP 150/82 07/31/24 21:06 Pulse Ox 98 07/31/24 21:06 O2 Del Method Room Air 07/31/24 21:06 Weight last 48 hrs Weight 112.718 kg Weight 104.326 kg Data NPU 07/31/24 09:59 07/31/24 09:59 A&P Assessment and plan (1) Borderline personality disorder: (2) Cannabis use disorder, severe, dependence: (3) Suicidal ideation: (4) Alcohol intoxication: (5) Acute psychosis: (6) Schizophrenia: (7) Hallucinations: (8) Marijuana abuse: Plan This is a 28-year-old white male with a significant history of addiction issues and psychiatric morbidity including recent diagnoses of schizophrenia and borderline personality disorder who had presented to the hospital about 7 months ago endorsing really struggling and needing assistance with urges to self-harm, off medication and with active addiction including UDS positive for cannabis and presenting with continued addiction with positive cannabis on this admission. The patient has a history of mental health issues and has been hospitalized multiple times. He reported thinking he should start his medications again to deal with the voices. Note that he absconded from the facility earlier this morning and was returned by the police and a new encounter was established instead of a continuation. 1. Restart Invega 6 mg p.o. daily. 2. Continue every 15 minute checks for safety. 3. Encourage individual, group and milieu therapy. 4. Encouraged sober living treatments after discharge at the highest level of care to which he is willing to commit. 5. Get collateral information. 6. Evaluate against the backdrop of a 96-hour hold. PDMP PDMP Reviewed: Not Reviewed Involuntary Hold Information 2 Hold Status: Legal Status: 96 Hour Hold Date/Time Hold Expires: 08/05/2024 0132 96 Hour Hold: 96 Hour Involuntary Admission: Yes Other Hold: Hold End Date: 02/05/24 Attestations NPU 2 Medical Necessity Statement*: Inpatient hospitalization is medically necessary and the clinically appropriate intervention at this time. We will monitor medications and make changes and adjustments as indicated. He will be in the hospital for over 2 midnights. Likely length of stay 4 to 6 days. Coding Level of Care Code Acute Code for [facility] Fwd Diagnoses Borderline personality disorder F60.3 Cannabis use disorder, severe, dependence F12.20 Suicidal ideation R45.851 Alcohol intoxication F10.929 Acute psychosis F23 Schizophrenia F20.9 Hallucinations R44.3 Marijuana abuse F12.10
[2024-08-01 06:00] VITALS: BP 127/85; PULSE 80; RESP 18; TEMP 36.5; O2SAT 98
--- NOTE | 2024-08-01 08:11 | P.NPUPN_ITS ---
Subjective NPU 2 Subjective: Patient presented today reporting that he is doing all right. He could still give no explanation for why he left the really. He endorsed taking his Invega and denied any current side effects. We discussed wanting to get him back on the long-acting injectable. We discussed his mother's report that he was having improvement previously on the Invega before he stopped it. He denied any side effects to the medication and endorsed an openness to consider the injection. Mental Status Exam 2 MSE Comments: This is an overweight versus obese white male in hospital scrubs with limited grooming and eye contact. No abnormal movements except for psychomotor retardation. Cooperative with exam in mild to distress. Speech was decreased rate and volume. Mood described as a little better than yesterday, affect mostly subdued. Thought process organized. Thought content: Patient denied suicidal or homicidal ideation but reports having voices telling him to kill himself, he endorsed paranoia but no delusional content was noted, he endorses hearing voices and also reports seeing things visual hallucinations. The patient reported hearing voices that tell them to harm themselves, but they usually ignore these voices. The patient also reported feeling followed by ghosts and seeing things. The patient denied having any current thoughts of self-harm or suicide. The patient reports to be in a slightly better state than the previous day after receiving some medication. Attention and concentration were intact and memory appeared somewhat reliable but none were formally tested. He is alert and oriented x3. Attention and concentration were limited, impulse control is limited versus impaired. Vitals/I&O/Wt Last Vital Signs Temp 97.7 F 08/01/24 06:00 Pulse 80 08/01/24 06:00 Resp 18 08/01/24 06:00 BP 127/85 08/01/24 06:00 Pulse Ox 98 08/01/24 06:00 O2 Del Method Room Air 08/01/24 06:00 Weight last 48 hrs Weight 112.718 kg Weight 104.326 kg Data NPU 08/01/24 08:31 08/01/24 08:31 A&P Assessment and plan (1) Borderline personality disorder: (2) Cannabis use disorder, severe, dependence: (3) Suicidal ideation: (4) Alcohol intoxication: (5) Acute psychosis: (6) Schizophrenia: (7) Hallucinations: (8) Marijuana abuse: Plan This is a 28-year-old white male with a significant history of addiction issues and psychiatric morbidity including recent diagnoses of schizophrenia and borderline personality disorder who had presented to the hospital about 7 months ago endorsing really struggling and needing assistance with urges to self-harm, off medication and with active addiction including UDS positive for cannabis and presenting with continued addiction with positive cannabis on this admission. The patient has a history of mental health issues and has been hospitalized multiple times. He reported thinking he should start his medications again to deal with the voices. Note that he absconded from the facility earlier this morning and was returned by the police and a new encounter was established instead of a continuation. 1. Restart Invega 6 mg p.o. daily. 2. Continue every 15 minute checks for safety. 3. Encourage individual, group and milieu therapy. 4. Encouraged sober living treatments after discharge at the highest level of care to which he is willing to commit. 5. Get collateral information. 6. Evaluate against the backdrop of a 96-hour hold. PDMP PDMP Reviewed: Not Reviewed Involuntary Hold Information 2 Hold Status: Legal Status: 96 Hour Hold Date/Time Hold Expires: 08/05/2024 0132 96 Hour Hold: 96 Hour Involuntary Admission: Yes Other Hold: Hold End Date: 02/05/24 Attestations NPU 2 Medical Necessity Statement*: Inpatient hospitalization is medically necessary and the clinically appropriate intervention at this time. We will monitor medications and make changes and adjustments as indicated. Likely length of stay 4 to 6 days. Coding Level of Care Code Acute Code for [facility] Fwd Diagnoses Borderline personality disorder F60.3 Cannabis use disorder, severe, dependence F12.20 Suicidal ideation R45.851 Alcohol intoxication F10.929 Acute psychosis F23 Schizophrenia F20.9 Hallucinations R44.3 Marijuana abuse F12.10
[2024-08-01 08:42] LABS: Basophils % 0.3 %; Eosinophils # 0.2 10^3/uL (0.0-0.8); Eosinophils % 2.5 %; Hematocrit 49.4 % (37-53); Lymphocytes # 2.7 10^3/uL (0.8-4.8); Lymphocytes % 39.1 %; Mean Corpuscular HGB Conc 32.8 g/dL (30-55); Mean Corpuscular Hemoglobin 28.4 pg (27-33); Mean Corpuscular Volume 86.7 fl (82-101); Mean Platelet Volume 10.9 fL (7.4-10.4); Monocytes # 0.4 10^3/uL (0.2-0.9); Monocytes % 6.4 %; Neutrophils # 3.56 10^3/uL (1.8-7.7); Neutrophils % 51.4 %; Nucleated Red Blood Cells % 0 %; Platelet Count 223 10^3/cmm (157-399); Red Cell Distribution Width 13.1 % (12.1-15.1); White Blood Count 6.91 10^3/uL (3.29-11.43)
[2024-08-01 09:04] LABS: Alanine Aminotransferase 19 U/L (0-41); Albumin Level 4.8 g/dL (3.5-5.2); Alkaline Phosphatase 68 U/L (40-130); Blood Urea Nitrogen 15 mg/dL (6-20); Carbon Dioxide 24 mmol/L (22-29); Chloride 104 mmol/L (98-107); Creatinine Clr Calc Pharmacy 175.5196; Globulin 3.3 g/dL (1.3-4.6); Glomerular Filtration Rate 115.1 mL/min (90-130); Glucose 101 mg/dL (65-115); Osmolality Calculated 295 mOsm/kg (285-295); Sodium 142 mmol/L (136-145); Total Bilirubin 0.8 mg/dL (0.15-1.2); Total Protein 8.1 g/dL (6.6-8.7)
[2024-08-01 09:14] LABS: Anion Gap 18.3 (5-19); Aspartate Amino Transferase 26 U/L (0-40); Potassium 4.3 mmol/L (3.5-5.1)
[2024-08-01 14:00] VITALS: BP 119/69; PULSE 85; RESP 17; TEMP 36.7; O2SAT 97
[2024-08-01] MEDS: trazodone 50 mg Tablet PO (20:02)
[2024-08-01] MEDS: hyDROXYzine 25 mg Capsule 50 MG PO (20:02)
[2024-08-01 20:50] VITALS: BP 140/84; PULSE 95; RESP 17; TEMP 36.8; O2SAT 97
[2024-08-02 06:00] VITALS: BP 120/82; PULSE 85; RESP 17; TEMP 36.6; O2SAT 97
[2024-08-02 14:00] VITALS: BP 121/84; PULSE 93; RESP 17; O2SAT 96
--- NOTE | 2024-08-02 18:04 | P.NPUPN_ITS ---
Subjective NPU 2 Subjective: Patient presented today reporting that he is doing okay. He was sleeping a bit more today but reports that he is feeling fine. He denied any side effects from the restarting of the Invega. He continues to lack insight into why he absconded from the hospital. He denied any side effects of the medication. Mental Status Exam 2 MSE Comments: This is an overweight versus obese white male in hospital scrubs with limited grooming and eye contact. No abnormal movements except for psychomotor retardation. Cooperative with exam in mild to distress. Speech was decreased rate and volume. Mood described as a little better than yesterday, affect mostly subdued. Thought process organized. Thought content: Patient denied suicidal or homicidal ideation but reports having voices telling him to kill himself, he endorsed paranoia but no delusional content was noted, he endorses hearing voices and also reports seeing things visual hallucinations. The patient reported hearing voices that tell them to harm themselves, but they usually ignore these voices. The patient also reported feeling followed by ghosts and seeing things. The patient denied having any current thoughts of self-harm or suicide. The patient reports to be in a slightly better state than the previous day after receiving some medication. Attention and concentration were intact and memory appeared somewhat reliable but none were formally tested. He is alert and oriented x3. Attention and concentration were limited, impulse control is limited versus impaired. Vitals/I&O/Wt Last Vital Signs Temp 98.6 F 08/02/24 22:00 Pulse 84 08/02/24 22:00 Resp 18 08/02/24 22:00 BP 106/59 08/02/24 22:00 Pulse Ox 98 08/02/24 22:00 O2 Del Method Room Air 08/02/24 22:00 Data NPU 08/01/24 08:31 08/01/24 08:31 A&P Assessment and plan (1) Borderline personality disorder: (2) Cannabis use disorder, severe, dependence: (3) Suicidal ideation: (4) Alcohol intoxication: (5) Acute psychosis: (6) Schizophrenia: (7) Hallucinations: (8) Marijuana abuse: Plan This is a 28-year-old white male with a significant history of addiction issues and psychiatric morbidity including recent diagnoses of schizophrenia and borderline personality disorder who had presented to the hospital about 7 months ago endorsing really struggling and needing assistance with urges to self-harm, off medication and with active addiction including UDS positive for cannabis and presenting with continued addiction with positive cannabis on this admission. The patient has a history of mental health issues and has been hospitalized multiple times. He reported thinking he should start his medications again to deal with the voices. Note that he absconded from the facility earlier this morning and was returned by the police and a new encounter was established instead of a continuation. 1. Restarted Invega 6 mg p.o. daily. 2. Continue one-to-one which she has been on since returning to the hospital. 3. Encourage individual, group and milieu therapy. 4. Encouraged sober living treatments after discharge at the highest level of care to which he is willing to commit. 5. Get collateral information. 6. Evaluate against the backdrop of a 96-hour hold. PDMP PDMP Reviewed: Not Reviewed Involuntary Hold Information 2 Hold Status: Legal Status: 96 Hour Hold Date/Time Hold Expires: 08/05/2024 @ 0132 96 Hour Hold: 96 Hour Involuntary Admission: Yes Other Hold: Hold End Date: 02/05/24 Attestations NPU 2 Medical Necessity Statement*: Inpatient hospitalization is medically necessary and the clinically appropriate intervention at this time. We will monitor medications and make changes and adjustments as indicated. Likely length of stay 4 to 6 days. Coding Level of Care Code Acute Code for [facility] Fwd Diagnoses Borderline personality disorder F60.3 Cannabis use disorder, severe, dependence F12.20 Suicidal ideation R45.851 Alcohol intoxication F10.929 Acute psychosis F23 Schizophrenia F20.9 Hallucinations R44.3 Marijuana abuse F12.10
[2024-08-02 22:00] VITALS: BP 106/59; PULSE 84; RESP 18; TEMP 37; O2SAT 98
[2024-08-03 06:00] VITALS: BP 96/63; PULSE 68; RESP 18; TEMP 36.4; O2SAT 98
[2024-08-03 14:00] VITALS: BP 105/61; PULSE 73; RESP 17; O2SAT 97
[2024-08-03] MEDS: paliperidone ER 6 mg Tablet PO (15:54)
--- NOTE | 2024-08-03 17:48 | P.NPUPN_ITS ---
Subjective NPU 2 Subjective: He presented today reporting that he is doing okay with the medication. We discussed making sure that he was absent problematic symptoms prior to leaving given his impulsive nature. He reports that he is feeling safe here with the one-to-one and he denied any side effects. Mental Status Exam 2 MSE Comments: This is an overweight versus obese white male in hospital scrubs with limited grooming and eye contact. No abnormal movements except for psychomotor retardation. Cooperative with exam in mild to distress. Speech was decreased rate and volume. Mood described as a little better than yesterday, affect mostly subdued. Thought process organized. Thought content: Patient denied suicidal or homicidal ideation but reports having voices telling him to kill himself, he endorsed paranoia but no delusional content was noted, he endorses hearing voices and also reports seeing things visual hallucinations. The patient reported hearing voices that tell them to harm themselves, but they usually ignore these voices. The patient also reported feeling followed by ghosts and seeing things. The patient denied having any current thoughts of self-harm or suicide. The patient reports to be in a slightly better state than the previous day after receiving some medication. Attention and concentration were intact and memory appeared somewhat reliable but none were formally tested. He is alert and oriented x3. Attention and concentration were limited, impulse control is limited versus impaired. Vitals/I&O/Wt Last Vital Signs Temp 98.3 F 08/03/24 22:00 Pulse 82 08/03/24 22:00 Resp 14 08/03/24 22:00 BP 127/80 08/03/24 22:00 Pulse Ox 98 08/03/24 22:00 O2 Del Method Room Air 08/03/24 06:00 Data NPU 08/01/24 08:31 08/01/24 08:31 A&P Assessment and plan (1) Borderline personality disorder: (2) Cannabis use disorder, severe, dependence: (3) Suicidal ideation: (4) Alcohol intoxication: (5) Acute psychosis: (6) Schizophrenia: (7) Hallucinations: (8) Marijuana abuse: Plan This is a 28-year-old white male with a significant history of addiction issues and psychiatric morbidity including recent diagnoses of schizophrenia and borderline personality disorder who had presented to the hospital about 7 months ago endorsing really struggling and needing assistance with urges to self-harm, off medication and with active addiction including UDS positive for cannabis and presenting with continued addiction with positive cannabis on this admission. The patient has a history of mental health issues and has been hospitalized multiple times. He reported thinking he should start his medications again to deal with the voices. Note that he absconded from the facility earlier this morning and was returned by the police and a new encounter was established instead of a continuation. 1. Restarted Invega 6 mg p.o. daily. 2. Continue one-to-one which she has been on since returning to the hospital. 3. Encourage individual, group and milieu therapy. 4. Encouraged sober living treatments after discharge at the highest level of care to which he is willing to commit. 5. Get collateral information. 6. Evaluate against the backdrop of a 96-hour hold. PDMP PDMP Reviewed: Not Reviewed Involuntary Hold Information 2 Hold Status: Legal Status: 96 Hour Hold Date/Time Hold Expires: 08/05/2024 @ 0132 96 Hour Hold: 96 Hour Involuntary Admission: Yes Other Hold: Hold End Date: 02/05/24 Attestations NPU 2 Medical Necessity Statement*: Inpatient hospitalization is medically necessary and the clinically appropriate intervention at this time. We will monitor medications and make changes and adjustments as indicated. Likely length of stay 4 to 6 days. Coding Level of Care Code Acute Code for [facility] Diagnoses Borderline personality disorder F60.3 Cannabis use disorder, severe, dependence F12.20 Suicidal ideation R45.851 Alcohol intoxication F10.929 Acute psychosis F23 Schizophrenia F20.9 Hallucinations R44.3 Marijuana abuse F12.10
[2024-08-03 22:00] VITALS: BP 127/80; PULSE 82; RESP 14; TEMP 36.8; O2SAT 98
[2024-08-04 06:00] VITALS: BP 103/64; PULSE 66; RESP 18; TEMP 36.4; O2SAT 99
[2024-08-04] MEDS: paliperidone ER 6 mg Tablet PO (08:29)
[2024-08-04 14:00] VITALS: BP 127/78; PULSE 83; RESP 16; O2SAT 97
--- NOTE | 2024-08-04 18:17 | W.PM.NPUPNS ---
Subjective NPU Subjective: Patient presented today reporting that things were going okay guesses. He continues to report being tired but feels a little better. We discussed the risks, benefits and alternatives of initiating the Invega Sustenna 234 mg IM to the deltoid for loading dose with subsequent dose in 4 to 7 days and he understood and agreed to proceed as is documented in this note. He denied any side effects to the medication. Mental Status Exam MSE Comments: This is an overweight versus obese white male in hospital scrubs with limited grooming and eye contact. No abnormal movements except for psychomotor retardation. Cooperative with exam in mild to distress. Speech was decreased rate and volume. Mood described as a little better than yesterday, affect mostly subdued. Thought process organized. Thought content: Patient denied suicidal or homicidal ideation but reports having voices telling him to kill himself, he endorsed paranoia but no delusional content was noted, he endorses hearing voices and also reports seeing things visual hallucinations. The patient reported hearing voices that tell them to harm themselves, but they usually ignore these voices. The patient also reported feeling followed by ghosts and seeing things. The patient denied having any current thoughts of self-harm or suicide. The patient reports to be in a slightly better state than the previous day after receiving some medication. Attention and concentration were intact and memory appeared somewhat reliable but none were formally tested. He is alert and oriented x3. Attention and concentration were limited, impulse control is limited versus impaired. Vitals/I&O/Wt Last Vital Signs Temp 98.2 F 08/04/24 21:00 Pulse 77 08/04/24 21:00 Resp 17 08/04/24 21:00 BP 127/73 08/04/24 21:00 Pulse Ox 98 08/04/24 21:00 O2 Del Method Room Air 08/04/24 21:00 Data NPU 08/01/24 08:31 08/01/24 08:31 A&P Assessment and plan (1) Borderline personality disorder: (2) Cannabis use disorder, severe, dependence: (3) Suicidal ideation: (4) Alcohol intoxication: (5) Acute psychosis: (6) Schizophrenia: (7) Hallucinations: (8) Marijuana abuse: Plan This is a 28-year-old white male with a significant history of addiction issues and psychiatric morbidity including recent diagnoses of schizophrenia and borderline personality disorder who had presented to the hospital about 7 months ago endorsing really struggling and needing assistance with urges to self-harm, off medication and with active addiction including UDS positive for cannabis and presenting with continued addiction with positive cannabis on this admission. The patient has a history of mental health issues and has been hospitalized multiple times. He reported thinking he should start his medications again to deal with the voices. Note that he absconded from the facility earlier this morning and was returned by the police and a new encounter was established instead of a continuation. 1. Restarted Invega 6 mg p.o. daily. Initiate Invega Sustenna 234 mg IM to deltoid tomorrow. 2. Continue one-to-one which she has been on since returning to the hospital. 3. Encourage individual, group and milieu therapy. 4. Encouraged sober living treatments after discharge at the highest level of care to which he is willing to commit. 5. Get collateral information. 6. Evaluate against the backdrop of a 96-hour hold. PDMP PDMP Reviewed: Not Reviewed Involuntary Hold Information Hold Status: Legal Status: 96 Hour Hold Date/Time Hold Expires: 08/05/2024 @ 0132 96 Hour Hold: 96 Hour Involuntary Admission: Yes Other Hold: Hold End Date: 02/05/24 Attestations NPU Medical Necessity Statement*: Inpatient hospitalization is medically necessary and the clinically appropriate intervention at this time. We will monitor medications and make changes and adjustments as indicated. Likely length of stay 4 to 6 days. Coding Level of Care Code Acute Code for [facility] Fwd Diagnoses Borderline personality disorder F60.3 Cannabis use disorder, severe, dependence F12.20 Suicidal ideation R45.851 Alcohol intoxication F10.929 Acute psychosis F23 Schizophrenia F20.9 Hallucinations R44.3 Marijuana abuse F12.10
[2024-08-04 21:00] VITALS: BP 127/73; PULSE 77; RESP 17; TEMP 36.8; O2SAT 98
[2024-08-05 06:00] VITALS: BP 119/67; PULSE 73; RESP 16; TEMP 36.4; O2SAT 99
[2024-08-05] MEDS: paliperidone ER 6 mg Tablet PO (08:13)
--- NOTE | 2024-08-05 19:54 | P.NPUPN_ITS ---
Subjective NPU 2 Subjective: Patient presented today reporting that he is feeling okay. We discussed hoping we can get him off of one-to-one if he demonstrates acceptance of being in the hospital. We discussed the risks, benefits and alternatives of initiating the Invega Sustenna injection 234 mg IM to the deltoid as it is a loading dose and he understood and agreed to proceed as is documented in this note. He denied any side effects of the medication. Mental Status Exam 2 MSE Comments: This is an overweight versus obese white male in hospital scrubs with limited grooming and eye contact. No abnormal movements except for psychomotor retardation. Cooperative with exam in mild to distress. Speech was decreased rate and volume. Mood described as a little better than yesterday, affect mostly subdued. Thought process organized. Thought content: Patient denied suicidal or homicidal ideation but reports having voices telling him to kill himself, he endorsed paranoia but no delusional content was noted, he endorses hearing voices and also reports seeing things visual hallucinations. The patient reported hearing voices that tell them to harm themselves, but they usually ignore these voices. The patient also reported feeling followed by ghosts and seeing things. The patient denied having any current thoughts of self-harm or suicide. The patient reports to be in a slightly better state than the previous day after receiving some medication. Attention and concentration were intact and memory appeared somewhat reliable but none were formally tested. He is alert and oriented x3. Attention and concentration were limited, impulse control is limited versus impaired. Vitals/I&O/Wt Last Vital Signs Temp 98.1 F 08/05/24 20:40 Pulse 99 08/05/24 20:40 Resp 18 08/05/24 20:40 BP 118/75 08/05/24 20:40 Pulse Ox 98 08/05/24 20:40 O2 Del Method Room Air 08/05/24 20:40 Data NPU 08/01/24 08:31 08/01/24 08:31 A&P Assessment and plan (1) Borderline personality disorder: (2) Cannabis use disorder, severe, dependence: (3) Suicidal ideation: (4) Alcohol intoxication: (5) Acute psychosis: (6) Schizophrenia: (7) Hallucinations: (8) Marijuana abuse: Plan This is a 28-year-old white male with a significant history of addiction issues and psychiatric morbidity including recent diagnoses of schizophrenia and borderline personality disorder who had presented to the hospital about 7 months ago endorsing really struggling and needing assistance with urges to self-harm, off medication and with active addiction including UDS positive for cannabis and presenting with continued addiction with positive cannabis on this admission. The patient has a history of mental health issues and has been hospitalized multiple times. He reported thinking he should start his medications again to deal with the voices. Note that he absconded from the facility earlier this morning and was returned by the police and a new encounter was established instead of a continuation. 1. Restarted Invega 6 mg p.o. daily. Initiate Invega Sustenna 234 mg IM to deltoid today. 2. Continue one-to-one which she has been on since returning to the hospital. Considering discontinuing the one-to-one but patient asking his sitter as to how the elevator system works. 3. Encourage individual, group and milieu therapy. 4. Encouraged sober living treatments after discharge at the highest level of care to which he is willing to commit. 5. Get collateral information. 6. Evaluate against the backdrop of a 96-hour hold. PDMP PDMP Reviewed: Not Reviewed Involuntary Hold Information 2 Hold Status: Legal Status: 96 Hour Hold Date/Time Hold Expires: 08/05/2024 @ 0132 96 Hour Hold: 96 Hour Involuntary Admission: Yes Other Hold: Hold End Date: 02/05/24 Attestations NPU 2 Medical Necessity Statement*: Inpatient hospitalization is medically necessary and the clinically appropriate intervention at this time. We will monitor medications and make changes and adjustments as indicated. Likely length of stay 4 to 6 days. Coding Level of Care Code Acute Code for [facility] Fwd Diagnoses Borderline personality disorder F60.3 Cannabis use disorder, severe, dependence F12.20 Suicidal ideation R45.851 Alcohol intoxication F10.929 Acute psychosis F23 Schizophrenia F20.9 Hallucinations R44.3 Marijuana abuse F12.10
[2024-08-05 20:40] VITALS: BP 118/75; PULSE 99; RESP 18; TEMP 36.7; O2SAT 98
[2024-08-05] MEDS: hyDROXYzine 25 mg Capsule 50 MG PO (21:40)
[2024-08-05] MEDS: trazodone 50 mg Tablet PO (21:40)
[2024-08-06 06:00] VITALS: BP 111/62; PULSE 71; RESP 16; O2SAT 97
[2024-08-06] MEDS: paliperidone ER 6 mg Tablet PO (08:43)
[2024-08-06 14:00] VITALS: BP 122/68; PULSE 83; RESP 16; TEMP 36.4; O2SAT 96
--- NOTE | 2024-08-06 15:34 | P.NPUPN_ITS ---
Subjective NPU 2 Subjective: Patient presented today reporting that he is doing okay. We discussed the situation and specifically him being taken off of one-to-one in our hopes that he will not engage in any absconding behavior. He is agreeable to the resumption of his long-acting injectable and we talked about being hopeful that with those things in place and him receiving his second shot next week that maybe we could look towards him going home. We discussed that his mother was very hopeful that with the injection in place he will be able to have success at home. He denied any side effects to the medication. Mental Status Exam 2 MSE Comments: This is an overweight versus obese white male in hospital scrubs with limited grooming and eye contact. No abnormal movements except for psychomotor retardation. Cooperative with exam in mild to distress. Speech was decreased rate and volume. Mood described as a little better than yesterday, affect mostly subdued. Thought process organized. Thought content: Patient denied suicidal or homicidal ideation but reports having voices telling him to kill himself, he endorsed paranoia but no delusional content was noted, he endorses hearing voices and also reports seeing things visual hallucinations. The patient reported hearing voices that tell them to harm themselves, but they usually ignore these voices. The patient also reported feeling followed by ghosts and seeing things. The patient denied having any current thoughts of self-harm or suicide. The patient reports to be in a slightly better state than the previous day after receiving some medication. Attention and concentration were intact and memory appeared somewhat reliable but none were formally tested. He is alert and oriented x3. Attention and concentration were limited, impulse control is limited versus impaired. Vitals/I&O/Wt Last Vital Signs Temp 98.1 F 08/05/24 20:40 Pulse 71 08/06/24 06:00 Resp 16 08/06/24 06:00 BP 111/62 08/06/24 06:00 Pulse Ox 97 08/06/24 06:00 O2 Del Method Room Air 08/05/24 06:00 Data NPU 08/01/24 08:31 08/01/24 08:31 A&P Assessment and plan (1) Borderline personality disorder: (2) Cannabis use disorder, severe, dependence: (3) Suicidal ideation: (4) Alcohol intoxication: (5) Acute psychosis: (6) Schizophrenia: (7) Hallucinations: (8) Marijuana abuse: Plan This is a 28-year-old white male with a significant history of addiction issues and psychiatric morbidity including recent diagnoses of schizophrenia and borderline personality disorder who had presented to the hospital about 7 months ago endorsing really struggling and needing assistance with urges to self-harm, off medication and with active addiction including UDS positive for cannabis and presenting with continued addiction with positive cannabis on this admission. The patient has a history of mental health issues and has been hospitalized multiple times. He reported thinking he should start his medications again to deal with the voices. Note that he absconded from the facility earlier this morning and was returned by the police and a new encounter was established instead of a continuation. 1. Restarted Invega 6 mg p.o. daily. Initiate Invega Sustenna 234 mg IM to deltoid today. 2. Continue one-to-one which she has been on since returning to the hospital. Considering discontinuing the one-to-one but patient asking his sitter as to how the elevator system works. Took him off of one-to-one this morning 08/06/2024 and he is now on every 15 minute checks. 3. Encourage individual, group and milieu therapy. 4. Encouraged sober living treatments after discharge at the highest level of care to which he is willing to commit. 5. Get collateral information. 6. Evaluate against the backdrop of a 96-hour hold. PDMP PDMP Reviewed: Not Reviewed Involuntary Hold Information 2 Hold Status: Legal Status: 96 Hour Hold Date/Time Hold Expires: signed in 96 Hour Hold: 96 Hour Involuntary Admission: Yes Other Hold: Hold End Date: 02/05/24 Attestations NPU 2 Medical Necessity Statement*: Inpatient hospitalization is medically necessary and the clinically appropriate intervention at this time. We will monitor medications and make changes and adjustments as indicated. Likely length of stay 4 to 6 days. Coding Level of Care Code Acute Code for [facility] Diagnoses Borderline personality disorder F60.3 Cannabis use disorder, severe, dependence F12.20 Suicidal ideation R45.851 Alcohol intoxication F10.929 Acute psychosis F23 Schizophrenia F20.9 Hallucinations R44.3 Marijuana abuse F12.10
[2024-08-06 20:23] VITALS: BP 100/50; PULSE 73; RESP 16; O2SAT 95
[2024-08-06] MEDS: trazodone 50 mg Tablet PO (20:24)
[2024-08-06] MEDS: hyDROXYzine 25 mg Capsule 50 MG PO (20:24)
[2024-08-06] MEDS: paliperidone palmitate 234 mg Syringe IM (20:54)
[2024-08-06] MEDS: OLANZapine 5 mg ODT PO (23:56)
[2024-08-07 06:00] VITALS: BP 122/70; PULSE 63; RESP 16; O2SAT 98
[2024-08-07] MEDS: paliperidone ER 6 mg Tablet PO (09:20)
[2024-08-07 14:00] VITALS: BP 124/61; PULSE 92; RESP 18; TEMP 36.8; O2SAT 97
--- NOTE | 2024-08-07 19:01 | W.PM.NPUPNS ---
Subjective NPU Subjective: Patient presented today reporting he was doing fine. He denied any difficulty with the injection he received yesterday and reported that overall things were good. He reports that there are no issues at this time he denied desire to try to abscond or get out of the building. He continues to do well off one-to-one. We discussed getting him his next IM injection of Invega Sustenna in the next 3 days so that he would be able to leave sooner if he was doing better. He denied any side effects to the medication. Mental Status Exam MSE Comments: This is an overweight versus obese white male in hospital scrubs with limited grooming and eye contact. No abnormal movements except for psychomotor retardation. Cooperative with exam in mild to distress. Speech was decreased rate and volume. Mood described as a little better than yesterday, affect mostly subdued. Thought process organized. Thought content: Patient denied suicidal or homicidal ideation but reports having voices telling him to kill himself, he endorsed paranoia but no delusional content was noted, he endorses hearing voices and also reports seeing things visual hallucinations. The patient reported hearing voices that tell them to harm themselves, but they usually ignore these voices. The patient also reported feeling followed by ghosts and seeing things. The patient denied having any current thoughts of self-harm or suicide. The patient reports to be in a slightly better state than the previous day after receiving some medication. Attention and concentration were intact and memory appeared somewhat reliable but none were formally tested. He is alert and oriented x3. Attention and concentration were limited, impulse control is limited versus impaired. Vitals/I&O/Wt Last Vital Signs Temp 98.7 F 08/07/24 19:21 Pulse 88 08/07/24 19:21 Resp 16 08/07/24 19:21 BP 127/75 08/07/24 19:21 Pulse Ox 98 08/07/24 19:21 O2 Del Method Room Air 08/06/24 20:23 Weight last 48 hrs Weight 115.269 kg Data NPU 08/01/24 08:31 08/01/24 08:31 A&P Assessment and plan (1) Borderline personality disorder: (2) Cannabis use disorder, severe, dependence: (3) Suicidal ideation: (4) Alcohol intoxication: (5) Acute psychosis: (6) Schizophrenia: (7) Hallucinations: (8) Marijuana abuse: Plan This is a 28-year-old white male with a significant history of addiction issues and psychiatric morbidity including recent diagnoses of schizophrenia and borderline personality disorder who had presented to the hospital about 7 months ago endorsing really struggling and needing assistance with urges to self-harm, off medication and with active addiction including UDS positive for cannabis and presenting with continued addiction with positive cannabis on this admission. The patient has a history of mental health issues and has been hospitalized multiple times. He reported thinking he should start his medications again to deal with the voices. Note that he absconded from the facility earlier this morning and was returned by the police and a new encounter was established instead of a continuation. 1. Restarted Invega 6 mg p.o. daily. Initiated Invega Sustenna 234 mg IM to deltoid 08/06/2024. Will give next injection in 4 days which will be within the window of 4 to 7 days. Invega Sustenna 156 mg IM to deltoid for final loading dose. 2. Continue one-to-one which she has been on since returning to the hospital. Considering discontinuing the one-to-one but patient asking his sitter as to how the elevator system works. Took him off of one-to-one this morning 08/06/2024 and he is now on every 15 minute checks. 3. Encourage individual, group and milieu therapy. 4. Encouraged sober living treatments after discharge at the highest level of care to which he is willing to commit. 5. Get collateral information. 6. Evaluate against the backdrop of a 96-hour hold. PDMP PDMP Reviewed: Not Reviewed Involuntary Hold Information Hold Status: Legal Status: 96 Hour Hold Date/Time Hold Expires: signed in 96 Hour Hold: 96 Hour Involuntary Admission: Yes Other Hold: Hold End Date: 02/05/24 Attestations NPU Medical Necessity Statement*: Inpatient hospitalization is medically necessary and the clinically appropriate intervention at this time. We will monitor medications and make changes and adjustments as indicated. Likely length of stay 4 to 6 days. Coding Level of Care Code Acute Code for [facility] Fwd Diagnoses Borderline personality disorder F60.3 Cannabis use disorder, severe, dependence F12.20 Suicidal ideation R45.851 Alcohol intoxication F10.929 Acute psychosis F23 Schizophrenia F20.9 Hallucinations R44.3 Marijuana abuse F12.10
[2024-08-07 19:21] VITALS: BP 127/75; PULSE 88; RESP 16; TEMP 37.1; O2SAT 98
[2024-08-07] MEDS: hyDROXYzine 25 mg Capsule 50 MG PO (20:09)
[2024-08-07] MEDS: trazodone 50 mg Tablet PO (20:09)
[2024-08-08 06:00] VITALS: BP 104/68; PULSE 94; RESP 16; TEMP 36.6; O2SAT 100
[2024-08-08] MEDS: paliperidone ER 6 mg Tablet PO (08:53)
[2024-08-08 14:00] VITALS: BP 138/70; PULSE 89; RESP 16; TEMP 36.6; O2SAT 99
--- NOTE | 2024-08-08 15:41 | W.PM.NPUPNS ---
Subjective NPU Subjective: Patient presented today reporting that he is feeling fine. He denies any side effects of the medication and looks forward to getting his injection as soon as possible which we discussed would be 08/10/2024. He continues to be calm and reserved on the unit and not requiring a one-to-one anymore. Mental Status Exam MSE Comments: This is an overweight versus obese white male in hospital scrubs with limited grooming and eye contact. No abnormal movements except for psychomotor retardation. Cooperative with exam in mild to distress. Speech was decreased rate and volume. Mood described as a little better than yesterday, affect mostly subdued. Thought process organized. Thought content: Patient denied suicidal or homicidal ideation but reports having voices telling him to kill himself, he endorsed paranoia but no delusional content was noted, he endorses hearing voices and also reports seeing things visual hallucinations. The patient reported hearing voices that tell them to harm themselves, but they usually ignore these voices. The patient also reported feeling followed by ghosts and seeing things. The patient denied having any current thoughts of self-harm or suicide. The patient reports to be in a slightly better state than the previous day after receiving some medication. Attention and concentration were intact and memory appeared somewhat reliable but none were formally tested. He is alert and oriented x3. Attention and concentration were limited, impulse control is limited versus impaired. Vitals/I&O/Wt Last Vital Signs Temp 98 F 08/08/24 14:00 Pulse 89 08/08/24 14:00 Resp 16 08/08/24 14:00 BP 138/70 08/08/24 14:00 Pulse Ox 99 08/08/24 14:00 O2 Del Method Room Air 08/08/24 14:00 Weight last 48 hrs Weight 115.269 kg Data NPU 08/01/24 08:31 08/01/24 08:31 A&P Assessment and plan (1) Borderline personality disorder: (2) Cannabis use disorder, severe, dependence: (3) Suicidal ideation: (4) Alcohol intoxication: (5) Acute psychosis: (6) Schizophrenia: (7) Hallucinations: (8) Marijuana abuse: Plan This is a 28-year-old white male with a significant history of addiction issues and psychiatric morbidity including recent diagnoses of schizophrenia and borderline personality disorder who had presented to the hospital about 7 months ago endorsing really struggling and needing assistance with urges to self-harm, off medication and with active addiction including UDS positive for cannabis and presenting with continued addiction with positive cannabis on this admission. The patient has a history of mental health issues and has been hospitalized multiple times. He reported thinking he should start his medications again to deal with the voices. Note that he absconded from the facility earlier this morning and was returned by the police and a new encounter was established instead of a continuation. 1. Restarted Invega 6 mg p.o. daily. Initiated Invega Sustenna 234 mg IM to deltoid 08/06/2024. Will give next injection in 4 days which will be within the window of 4 to 7 days. Invega Sustenna 156 mg IM to deltoid for final loading dose. Likely give second loading dose Friday. 2. Continue one-to-one which she has been on since returning to the hospital. Considering discontinuing the one-to-one but patient asking his sitter as to how the elevator system works. Took him off of one-to-one this morning 08/06/2024 and he is now on every 15 minute checks. 3. Encourage individual, group and milieu therapy. 4. Encouraged sober living treatments after discharge at the highest level of care to which he is willing to commit. 5. Get collateral information. 6. Evaluate against the backdrop of a 96-hour hold. PDMP PDMP Reviewed: Not Reviewed Involuntary Hold Information Hold Status: Legal Status: 96 Hour Hold Date/Time Hold Expires: signed in 96 Hour Hold: 96 Hour Involuntary Admission: Yes Other Hold: Hold End Date: 02/05/24 Attestations NPU Medical Necessity Statement*: Inpatient hospitalization is medically necessary and the clinically appropriate intervention at this time. We will monitor medications and make changes and adjustments as indicated. Likely length of stay 4 to 6 days. Coding Level of Care Code Acute Code for [facility] Fwd Diagnoses Borderline personality disorder F60.3 Cannabis use disorder, severe, dependence F12.20 Suicidal ideation R45.851 Alcohol intoxication F10.929 Acute psychosis F23 Schizophrenia F20.9 Hallucinations R44.3 Marijuana abuse F12.10
[2024-08-08 19:11] VITALS: BP 109/62; PULSE 98; RESP 18; O2SAT 98
[2024-08-09] MEDS: trazodone 50 mg Tablet PO (00:48)
[2024-08-09] MEDS: hyDROXYzine 25 mg Capsule 50 MG PO (00:48)
[2024-08-09 06:00] VITALS: BP 118/75; PULSE 93; RESP 16; TEMP 36.7; O2SAT 95
--- NOTE | 2024-08-09 07:45 | P.NPUPN_ITS ---
Subjective NPU 2 Subjective: Patient presented today reporting that things were going fine. He endorsed that he had no difficulty with the medication and was open to getting his second loading dose injection of Invega Sustenna tomorrow in hopes that there will be an earlier discharge as an outcome. He denied any side effects to the medication. Mental Status Exam 2 MSE Comments: This is an overweight versus obese white male in hospital scrubs with limited grooming and eye contact. No abnormal movements except for psychomotor retardation. Cooperative with exam in mild to distress. Speech was decreased rate and volume. Mood described as a little better than yesterday, affect mostly subdued. Thought process organized. Thought content: Patient denied suicidal or homicidal ideation but reports having voices telling him to kill himself, he endorsed paranoia but no delusional content was noted, he endorses hearing voices and also reports seeing things visual hallucinations. The patient reported hearing voices that tell them to harm themselves, but they usually ignore these voices. The patient also reported feeling followed by ghosts and seeing things. The patient denied having any current thoughts of self-harm or suicide. The patient reports to be in a slightly better state than the previous day after receiving some medication. Attention and concentration were intact and memory appeared somewhat reliable but none were formally tested. He is alert and oriented x3. Attention and concentration were limited, impulse control is limited versus impaired. Vitals/I&O/Wt Last Vital Signs Temp 98.0 F 08/09/24 06:00 Pulse 93 08/09/24 06:00 Resp 16 08/09/24 06:00 BP 118/75 08/09/24 06:00 Pulse Ox 95 08/09/24 06:00 O2 Del Method Room Air 08/08/24 14:00 Weight last 48 hrs Weight 115.269 kg Data NPU 08/01/24 08:31 08/01/24 08:31 A&P Assessment and plan (1) Borderline personality disorder: (2) Cannabis use disorder, severe, dependence: (3) Suicidal ideation: (4) Alcohol intoxication: (5) Acute psychosis: (6) Schizophrenia: (7) Hallucinations: (8) Marijuana abuse: Plan This is a 28-year-old white male with a significant history of addiction issues and psychiatric morbidity including recent diagnoses of schizophrenia and borderline personality disorder who had presented to the hospital about 7 months ago endorsing really struggling and needing assistance with urges to self-harm, off medication and with active addiction including UDS positive for cannabis and presenting with continued addiction with positive cannabis on this admission. The patient has a history of mental health issues and has been hospitalized multiple times. He reported thinking he should start his medications again to deal with the voices. Note that he absconded from the facility earlier this morning and was returned by the police and a new encounter was established instead of a continuation. 1. Restarted Invega 6 mg p.o. daily. Initiated Invega Sustenna 234 mg IM to deltoid 08/06/2024. Will give next injection in 4 days which will be within the window of 4 to 7 days. Invega Sustenna 156 mg IM to deltoid for final loading dose. Likely give second loading dose tomorrow. 2. Continue one-to-one which she has been on since returning to the hospital. Took him off of one-to-one 08/06/2024 and he is now on every 15 minute checks. 3. Encourage individual, group and milieu therapy. 4. Encouraged sober living treatments after discharge at the highest level of care to which he is willing to commit. 5. Get collateral information. 6. Evaluate against the backdrop of a 96-hour hold. PDMP PDMP Reviewed: Not Reviewed Involuntary Hold Information 2 Hold Status: Legal Status: 96 Hour Hold Date/Time Hold Expires: signed in 96 Hour Hold: 96 Hour Involuntary Admission: Yes Other Hold: Hold End Date: 02/05/24 Attestations NPU 2 Medical Necessity Statement*: Inpatient hospitalization is medically necessary and the clinically appropriate intervention at this time. We will monitor medications and make changes and adjustments as indicated. Likely length of stay 4 to 6 days. Coding Level of Care Code Acute Code for g Fwd Diagnoses Borderline personality disorder F60.3 Cannabis use disorder, severe, dependence F12.20 Suicidal ideation R45.851 Alcohol intoxication F10.929 Acute psychosis F23 Schizophrenia F20.9 Hallucinations R44.3 Marijuana abuse F12.10
[2024-08-09] MEDS: paliperidone ER 6 mg Tablet PO (08:44)
[2024-08-09 14:00] VITALS: BP 125/75; PULSE 92; RESP 18; TEMP 36.4; O2SAT 97
[2024-08-09 19:58] VITALS: BP 132/79; PULSE 100; RESP 18; TEMP 36.8; O2SAT 99
[2024-08-10 06:00] VITALS: BP 123/77; PULSE 86; RESP 18; TEMP 36.5; O2SAT 98
[2024-08-10] MEDS: paliperidone ER 6 mg Tablet PO (08:20)
--- NOTE | 2024-08-10 13:10 | PC.NURSE ---
Pt is off the unit escorted to court with deputies of the law. 1308 off unit
[2024-08-10 14:00] VITALS: BP 139/82; PULSE 100; RESP 18; TEMP 36.4; O2SAT 98
--- NOTE | 2024-08-10 16:40 | P.NPUPN_ITS ---
Subjective NPU 2 Subjective: Patient presented today reporting that things are going okay. He went to his 21-day hold hearing but did not contest. We discussed the risk benefits alternatives of him getting his second loading dose of Invega Sustenna 156 mg IM to the deltoid today likely discharge by Friday. He denied any side effects with medication. Mental Status Exam 2 MSE Comments: This is an overweight versus obese white male in hospital scrubs with limited grooming and eye contact. No abnormal movements except for psychomotor retardation. Cooperative with exam in mild to distress. Speech was decreased rate and volume. Mood described as a little better than yesterday, affect mostly subdued. Thought process organized. Thought content: Patient denied suicidal or homicidal ideation but reports having voices telling him to kill himself, he endorsed paranoia but no delusional content was noted, he endorses hearing voices and also reports seeing things visual hallucinations. The patient reported hearing voices that tell them to harm themselves, but they usually ignore these voices. The patient also reported feeling followed by ghosts and seeing things. The patient denied having any current thoughts of self-harm or suicide. The patient reports to be in a slightly better state than the previous day after receiving some medication. Attention and concentration were intact and memory appeared somewhat reliable but none were formally tested. He is alert and oriented x3. Attention and concentration were limited, impulse control is limited versus impaired. Vitals/I&O/Wt Last Vital Signs Temp 98.3 F 08/10/24 22:00 Pulse 104 H 08/10/24 22:00 Resp 17 08/10/24 22:00 BP 147/95 08/10/24 22:00 Pulse Ox 96 08/10/24 22:00 O2 Del Method Room Air 08/10/24 06:00 Data NPU 08/01/24 08:31 08/01/24 08:31 A&P Assessment and plan (1) Borderline personality disorder: (2) Cannabis use disorder, severe, dependence: (3) Suicidal ideation: (4) Alcohol intoxication: (5) Acute psychosis: (6) Schizophrenia: (7) Hallucinations: (8) Marijuana abuse: Plan This is a 28-year-old white male with a significant history of addiction issues and psychiatric morbidity including recent diagnoses of schizophrenia and borderline personality disorder who had presented to the hospital about 7 months ago endorsing really struggling and needing assistance with urges to self-harm, off medication and with active addiction including UDS positive for cannabis and presenting with continued addiction with positive cannabis on this admission. The patient has a history of mental health issues and has been hospitalized multiple times. He reported thinking he should start his medications again to deal with the voices. Note that he absconded from the facility earlier this morning and was returned by the police and a new encounter was established instead of a continuation. 1. Restarted Invega 6 mg p.o. daily. Initiated Invega Sustenna 234 mg IM to deltoid 08/06/2024. Will give next injection in 4 days which will be within the window of 4 to 7 days. Invega Sustenna 156 mg IM to deltoid for final loading dose. Likely give second loading dose tomorrow. 2. Continue one-to-one which she has been on since returning to the hospital. Took him off of one-to-one 08/06/2024 and he is now on every 15 minute checks. 3. Encourage individual, group and milieu therapy. 4. Encouraged sober living treatments after discharge at the highest level of care to which he is willing to commit. 5. Get collateral information. 6. Evaluate against the backdrop of a 96-hour hold. Had 21-day hold hearing today and patient placed on hold. PDMP PDMP Reviewed: Not Reviewed Involuntary Hold Information 2 Hold Status: Legal Status: 21 Day Hold Date/Time Hold Expires: 08/31/2024 96 Hour Hold: 96 Hour Involuntary Admission: Yes Other Hold: Hold End Date: 02/05/24 Attestations NPU 2 Medical Necessity Statement*: Inpatient hospitalization is medically necessary and the clinically appropriate intervention at this time. We will monitor medications and make changes and adjustments as indicated. Likely length of stay 3-5 days. Coding Level of Care Code Acute Code for [facility] Fwd Diagnoses Borderline personality disorder F60.3 Cannabis use disorder, severe, dependence F12.20 Suicidal ideation R45.851 Alcohol intoxication F10.929 Acute psychosis F23 Schizophrenia F20.9 Hallucinations R44.3 Marijuana abuse F12.10
[2024-08-10] MEDS: paliperidone palmitate 156 mg Syringe IM (16:56)
--- NOTE | 2024-08-10 18:39 | PC.NURSE ---
1415 pt was escorted back to the unit by deputies, from court. no distress noted
[2024-08-10 22:00] VITALS: BP 147/95; PULSE 104; RESP 17; TEMP 36.8; O2SAT 96
[2024-08-10] MEDS: hyDROXYzine 25 mg Capsule 50 MG PO (23:00)
[2024-08-10] MEDS: trazodone 50 mg Tablet PO (23:00)
[2024-08-11 06:00] VITALS: BP 116/76; PULSE 88; RESP 18; TEMP 36.6; O2SAT 98
[2024-08-11] MEDS: paliperidone ER 6 mg Tablet PO (08:31)
--- NOTE | 2024-08-11 12:15 | PC.NURSE ---
linen change this nurse helped pt change the linens on his bed.
[2024-08-11 14:00] VITALS: BP 124/74; PULSE 96; RESP 18; TEMP 37; O2SAT 97
--- NOTE | 2024-08-11 17:12 | P.NPUPN_ITS ---
Subjective NPU 2 Subjective: Patient presented today reporting that he is feeling fine. He got his second injection and things are going okay. We discussed the risks, benefits and alternatives of continuing him on the injection and discontinuing the oral and about 10 days. He denied any side effects of the medication and was optimistic about the likelihood of discharge tomorrow. Mental Status Exam 2 MSE Comments: This is an overweight versus obese white male in hospital scrubs with limited grooming and eye contact. No abnormal movements except for psychomotor retardation. Cooperative with exam in mild to distress. Speech was decreased rate and volume. Mood described as a little better than yesterday, affect mostly subdued. Thought process organized. Thought content: Patient denied suicidal or homicidal ideation but reports having voices telling him to kill himself, he endorsed paranoia but no delusional content was noted, he endorses hearing voices and also reports seeing things visual hallucinations. The patient reported hearing voices that tell them to harm themselves, but they usually ignore these voices. The patient also reported feeling followed by ghosts and seeing things. The patient denied having any current thoughts of self-harm or suicide. The patient reports to be in a slightly better state than the previous day after receiving some medication. Attention and concentration were intact and memory appeared somewhat reliable but none were formally tested. He is alert and oriented x3. Attention and concentration were limited, impulse control is limited versus impaired. Vitals/I&O/Wt Last Vital Signs Temp 98.6 F 08/11/24 14:00 Pulse 96 08/11/24 14:00 Resp 18 08/11/24 14:00 BP 124/74 08/11/24 14:00 Pulse Ox 97 08/11/24 14:00 O2 Del Method Room Air 08/11/24 14:00 Data NPU 08/01/24 08:31 08/01/24 08:31 A&P Assessment and plan (1) Borderline personality disorder: (2) Cannabis use disorder, severe, dependence: (3) Suicidal ideation: (4) Alcohol intoxication: (5) Acute psychosis: (6) Schizophrenia: (7) Hallucinations: (8) Marijuana abuse: Plan This is a 28-year-old white male with a significant history of addiction issues and psychiatric morbidity including recent diagnoses of schizophrenia and borderline personality disorder who had presented to the hospital about 7 months ago endorsing really struggling and needing assistance with urges to self-harm, off medication and with active addiction including UDS positive for cannabis and presenting with continued addiction with positive cannabis on this admission. The patient has a history of mental health issues and has been hospitalized multiple times. He reported thinking he should start his medications again to deal with the voices. Note that he absconded from the facility earlier this morning and was returned by the police and a new encounter was established instead of a continuation. 1. Restarted Invega 6 mg p.o. daily. Initiated Invega Sustenna 234 mg IM to deltoid 08/06/2024. Will give next injection in 4 days which will be within the window of 4 to 7 days. Invega Sustenna 156 mg IM to deltoid for final loading dose. Likely give second loading dose tomorrow. 2. Continue one-to-one which she has been on since returning to the hospital. Took him off of one-to-one 08/06/2024 and he is now on every 15 minute checks. 3. Encourage individual, group and milieu therapy. 4. Encouraged sober living treatments after discharge at the highest level of care to which he is willing to commit. 5. Get collateral information. 6. Evaluate against the backdrop of a 96-hour hold. Had 21-day hold hearing today and patient placed on hold. Tentative plan for discharge tomorrow. PDMP PDMP Reviewed: Not Reviewed Involuntary Hold Information 2 Hold Status: Legal Status: 21 Day Hold Date/Time Hold Expires: 08/31/2024 96 Hour Hold: 96 Hour Involuntary Admission: Yes Other Hold: Hold End Date: 02/05/24 Attestations NPU 2 Medical Necessity Statement*: Inpatient hospitalization is medically necessary and the clinically appropriate intervention at this time. We will monitor medications and make changes and adjustments as indicated. Likely length of stay 1-3 days. Coding Level of Care Code Acute Code for [facility] Fwd Diagnoses Borderline personality disorder F60.3 Cannabis use disorder, severe, dependence F12.20 Suicidal ideation R45.851 Alcohol intoxication F10.929 Acute psychosis F23 Schizophrenia F20.9 Hallucinations R44.3 Marijuana abuse F12.10
[2024-08-11 20:21] VITALS: BP 140/61; PULSE 75; RESP 18; TEMP 36.6; O2SAT 95
[2024-08-11] MEDS: trazodone 50 mg Tablet PO (21:19)
[2024-08-11] MEDS: hyDROXYzine 25 mg Capsule 50 MG PO (21:19)
[2024-08-12 06:00] VITALS: BP 119/71; PULSE 85; RESP 17; TEMP 36.7; O2SAT 94
[2024-08-12] MEDS: paliperidone ER 6 mg Tablet PO (08:21)
--- NOTE | 2024-08-12 13:31 | P.NPUDS_ITS ---
Diagnoses at Discharge Discharge Diagnosis (1) Borderline personality disorder: Status: Acute (2) Cannabis use disorder, severe, dependence: Status: Acute (3) Suicidal ideation: Status: Resolved (4) Alcohol intoxication: Status: Inactive (5) Acute psychosis: Status: Resolved (6) Schizophrenia: Status: Acute (7) Hallucinations: Status: Resolved (8) Marijuana abuse: Status: Inactive Reason for Visit Reason for Visit: mhe Brief History: History of Present Illness Ivan Dover is a 28 year old male who presented to the emergency department with the following report: Chief Complaint: Psychiatric Symptoms Stated Complaint: mhe Time Seen by Provider: 07/31/24 07:55 History of Present Illness: 28-year-old male who is an inpatient at the [facility] el[facility] from the [facility]. Was brought to the emergency room after being found again. Patient has a history of alcohol abuse and schizophrenia. Presented to the ER on 516 was having acute psychosis reviewing the notes it looks like it was due to his being off his medications. This morning he pushed the window out in the [facility] and eloped from the [facility]. He was eventually found in his home he had taken off his green paper scrubs today changed into regular close. He denies injuring himself while pushing out the window. He denies any injury or the course of climbing out of the window or walking around. According to security he did not have shoes when he left the department but when they found him he was in regular close and did have shoes on. He denies injuring himself anywhere he denies any pain. He states he left the [facility] because he was hearing voices that the staff was talking about having him killed. He also made comments about people were talking that he was trying to steal all the power . He was admitted to the neuropsychiatric unit for definitive treatment of those issues. Note that he absconded from the facility earlier this morning and was returned by the police and a new encounter was established instead of a continuation. An excerpt of his discharge summary from this morning will be included below for context and the fact that there have been no changes except for the fact that he broke out of the facility. He presented to the day reporting that he is not sure why he did what he did he just could not stay and we discussed the fact that he had reported some strange things to the emergency room doctor and he agreed he had been thinking some of those things 2. We discussed the risks, benefits and alternatives of restarting his Invega as we had discussed and he understood and agreed to proceed as is documented in this note. His mother had called and said that he was starting to get better on the Invega and she was really hopeful that that would be restarted. We discussed our interest in moving him to the long-acting injectable which she did not respond to that suggestion. Per his 07/31/2024 [facility] inpatient psychiatric discharge summary: Diagnoses at Discharge Discharge Diagnosis (1) Borderline personality disorder: Status: Acute (2) Cannabis use disorder, severe, depen dence: Status: Acute (3) Suicidal ideation: Status: Resolved (4) Alcohol intoxication: Status: Inactive (5) Acute psychosis: Status: Resolved (6) Schizophrenia: Status: Acute (7) Hallucinations: Status: Resolved (8) Marijuana abuse: Status: Inactive Reason for Visit Reason for Visit: MHE Brief History: Chief Complaint: MHE HPI [facility] History of Present Illness Ivan Dover is a 28 year old male who presented to the emergency department with the following report: Chief Complaint: Psychiatric Symptoms Stated Complaint: MHE Time Seen by Provider: 07/30/24 01:23 History of Present Illness: 28-year-old man with a history of border line personality disorder, cannabis use disorder, history of suicidal ideations, alcohol abuse, psychosis and schizophrenia who presents to the emergency room today with hallucinations and he says they have been telling him to hurt himself. He has no specific plan at this time. He was admitted to the neuropsychiatric unit for definitive treatment of those issues. He is known to [facility] through previous outpatient admissions. The last of which was in January of last year and an excerpt of that note is included below for context and the fact that there have been no substantive changes. He presents today reporting that he had been off his medication for some time and that he was really wanting to get stable again. He reports that he has been having limited difficulties with addiction but mostly just having problems being off his medication and that the other day he started having voices returning and those being overwhelming. We discussed the risks, benefits and alternatives of restarting his medication he had been on in the past specifically the antipsychotic and he understood and agreed to proceed as is documented in this note. He reports has been sometime since he had been on the medication and he was hopeful that with the medications restarted he would not be able to have the voices go away and he would be better otherwise. Per his 02/04/2024 [facility] inpatient psychiatric discharge summary: Diagnoses at Discharge Discharge Diagnosis (1) Acute psychosis: Status: Resolved (2) Borderline personality disorder: Status: Acute (3) Cannabis use disorder, severe, depen dence: Status: Acute (4) Suicidal ideation: Status: Resolved (5) Alcohol intoxication: Status: Acute (6) Schizophrenia: Status: Acute (7) Hallucinations: Status: Resolved (8) Marijuana abuse: Status: Inactive Reason for Visit Reason for Visit: ETOH Brief History: History of Present Illness Ivan Dover is a 28 year old male who presented to the emergency department with the following report: Chief Complaint: Altered Mental Status Stated Complaint: ETOH Time Seen by Provider: 01/30/24 05:33 Source: patient, EMS and police Mode of arrival: EMS Limitations: no limitations History of Present Illness: 28-year-old male that has a history of d epression along with schizophrenia and alcohol abuse patient brought in by police and EMS tonight for paranoia. Patient been drinking alcohol mother called EMS because he had been having anger outburst around the house this morning. She states has been very erratic she has been bringing Ouija boards to cemeteries and manic. Patient here is angry and delusional will not give much information He was admitted to the neuropsychiatric unit for definitive treatment of those issues. He is known to [facility] psychiatry services through inpatient and outpatient services. His last outpatient visit was December 2022 and his last inpatient stay was in October of this year. An excerpt of that discharge summary is included below for context. His UDS was positive for cannabis and benzodiazepines which were likely a confounding finding from medications given in the emergency department. Things have been going well for the last almost 3 months since he was discharged. He reports that he felt he was doing really well but then last night when he went home from being out with people that he knows she got extremely angry in a way that he could explain and felt that he should come to the hospital to be checked out. He denied that he really ever took the medication when he was home. We discussed him considering the risks, benefits and alternatives of some of these antipsychotics and mood stabilizers and he understood and agreed to proceed as is documented in this note. Per his 11/03/2023 [facility] inpatient psychiatric discharge summary: Discharge Diagnosis (1) Borderline personality disorder: Status: Acute (2) Cannabis use disorder, severe, depen dence: Status: Acute (3) Suicidal ideation: Status: Resolved (4) Alcohol intoxication: Status: Acute (5) Acute psychosis: Status: Resolved (6) Schizophrenia: Status: Acute (7) Hallucinations: Status: Resolved (8) Marijuana abuse: Status: Inactive Reason for Visit Reason for Visit: SI Brief History: History of Present Illness Ivan Dover is a 28 year old male who presented to the emergency department with the following report: Chief Complaint: Psychiatric Symptoms Stated Complaint: SI Time Seen by Provider: 10/28/23 23:48 History of Present Illness: 28-year-old man with history of depressi on who presents to the emergency room by ambulance with suicidal thoughts. He states he was thinking about cutting himself. Apparently has been drinking and smoking some marijuana. He walks into the emergency room. No focal motor deficits. No specific plan at this time. He was admitted to the neuropsychiatric unit for definitive treatment of those issues. He is known to the system through inpatient and outpatient services and an excerpt of his last hospitalization is included below for history and context. After that hospitalization he did follow-up with [facility] [place] with good adh erence until December 2022. He presents today reporting: Chief complaint The patient was brought to the hospital after an episode of anger and yelling in public. The patient reported feeling upset and hearing voices that became overwhelming. History of the present complaint The patient reported an incident that led to his hospitalization. He mentioned that he became upset and started yelling in a public area, which resulted in the police being called. The patient did not provide specific details about the trigger of his emotional outburst. This is his fourth hospitalization, with the last one occurring in 2019. The patient had been receiving outpatient care at [facility] under Dr. Branch until sometime last year. After that, his mother arranged for him to see another doctor at [facility]. However, he stopped taking his medication after he stopped seeing Dr. Cline. He did not continue his medication even after starting treatment at [facility]. The patient reported that he felt he did not need the medication anymore. The patient admitted to using cannabis and THC regularly, and he recently started drinking alcohol again after a period of abstinence. He denied using any other drugs recently or long-term, and he has never been to rehab or had any charges related to drug use. The patient reported hearing voices, which he described as overwhelming and constant. He stated that these voices were present even when he was on medication and seeing Dr. Branch. He has been on various medications in the past, including Abilify, Geodon, Zyprexa, Seroquel, and Latuda, but none of these medications have completely alleviated his symptoms. The patient was brought to the hospital after an episode of anger and yelling, which he attributed to the voices becoming out of control. Since his admission, he has been given some medication, which he felt was helpful. He acknowledged that while the voices do not completely go away, medication might help manage his symptoms. Currently, the patient reported feeling a little better than the previous day. He denied having any thoughts of self-harm or suicide, but he mentioned that the voices often tell him to harm himself, which he usually ignores. He also reported experiencing paranoia, specifically feeling like ghosts are following him. In addition to hearing voices, the patient also reported seeing things. Mental health history The patient has a history of multiple hospitalizations, with this being the fourth one. The last hospitalization was in 2019. The patient has been to this hospital three times and once to [place]. The patient was previously under the care of Dr. Branch at [facility] and later at [facility]. The patient has been on various medications including Abilify, Geodon, Zyprexa, Seroquel, and Latuda. However, the patient stopped taking medication after ceasing to see Dr. Cline, feeling that they didn't need it. The patient reported that the voices never went away even when on medication. Social history The patient reported using THC and cannabis regularly. The patient started drinking alcohol again recently after a period of abstinence. The patient denied any use of other drugs or having any problems with substances like methamphetamine or opiates. The patient has never been to rehab and has no charges related to drug use. Per his 12/29/2019 [facility] inpatient psychiatric discharge summary: History of Present Illness Ivan Dover is a 24 year old male who presented to the emergency department with the following report: Chief Complaint: Psychiatric Symptoms Stated Complaint: INTENTIONAL OVERDOSE Time Seen by Provider: 12/23/19 07:53 History of Present Illness: HPI Narrative: 24-year-old male patient presents to the emergency department via EMS. Patient was discharged from neuropsychiatric unit on 12/21/2019. He reports 1 hour prior to arrival, at approximately 630 to 7 AM, took 15 to 16 tablets of 2 mg Risperdal. Prescribed Risperdal from neuropsych, 12/17/2019. He reports chronic depression, stress. He denies life changing or stressful event that led to intentional overdose. He reports auditory hallucinations, states voices are telling him to kill himself. He reports voices have been present since November. He has battled depression since age 14 with previous self-harm of cutting himself. He lives with his mother. States his mother was aware of what occurred this morning and called 911 for assistance. Associated symptoms: Reports auditory hallucinations, depression and suicidal ideation; Deny visual hallucinations or homicidal ideation He was admitted to the neuropsychiatric unit for the definitive treatment of those issues. He presents today reporting that he went home with the greatest of intentions and things just did not work out. He endorsed the part of the situation is that the voices have become untenable. And even no depression has been noted he reports the real issue is the voices are becoming so unmanageable that he feels the suicidal thinking and does feel a little bit of a dip in his mood. He reports that the voices got really bad about a year to a year and a half ago but acknowledges that the voices were there even before and he had ways to ignore them. Is just that about a year and a half ago it became overwhelming. He denies any other trials of medication other than the Risperdal and he reports that the voices never really dissipated. We discussed the risks, benefits and alternatives of initiating Abilify 10 mg p.o. every morning and he understood and agreed to proceed as is documented in this note. We reviewed his previous inpatient evaluation from last week and he denies any substantive changes and so an excerpt of that note is included below. Per his [facility] inpatient eval 12/18/2019: History of Present Illness Ivan Dover is a 24 year old male Ivan Dover is a 24-year-old male with no prior psychiatric history who was brought to the emergency room with the complaint described above. He says that he occasionally has suicidal thoughts. However he has no intent or plan. He does not seem to be particularly depressed. He spends his days playing his guitar and writing music. He feels that he is pretty good at playing guitar and writing music and sometimes will even play his guitar for a friend. He denies being depressed. However he does report the presence of auditory halluci nations. He hears more than 1 voice. There is no command nature to the hallucinations. He cannot identify any voices. He cannot tell whether they are coming from inside of his head or outside of his head. He does not find them typically troubling and is not too concerned about them. On interview today, he is not too concerned about much of anything. He admits that he smokes marijuana and that it helps relax him. He is guarded around how much he smokes. He claims to not really smoke very much. He says that he last went a whole day without smoking a few days ago. Other than getting rid of the auditory hallucinations, he has no other goals. Appetite and sleep are good by his report Laboratory Tests 12/16/2009/02/20 [id number]:[id number] Urine Opiates Screen Negative Ur Barbiturates Screen Negative Ur Phencyclidine Scrn Negative Ur Amphetamines Screen Negative U Benzodiazepines Scrn Negative Urine Cocaine Screen Negative U Marijuana (THC) Screen Positive H Ethyl Alcohol < 10 Past psychiatric history: He has no history of inpatient psychiatric treatment, outpatient psychiatric treatment. He did see a counselor for a while but does not really want to talk about that. Family psychiatric history: Patient states that there is nobody else in the family that has been treated for mental health problems. Nobody in the family has experienced auditory hallucinations. Nobody else in the family has an alcohol or substance abuse problem. Social history: The patient currently lives with his mother. His mother is employed full-time. The patient is unemployed. The patient has no intention of finding employment. I am not really very good at that kind of thing. He is a high school graduate. He was attending the local college and planning on a career in game design. He stopped attending school 4 years ago. He has no plans to return. He says that he has friends locally but does not name any of them. He describes no activities in which he engages with those friends. He has 2 brothers and a sister. He says he does not see them much. Medical history Records indicate that he is in good medical health. He is on no medications. Laboratory evaluation show that he has a mild elevation in RBC and his nonfasting blood sugar was 129. His urine drug screen was positive for marijuana. Otherwise the UDS was negative. Hospital Course Hospital Course He slowly acclimated to the individual, group and milieu therapies provided. He presented with psychosis and active addiction, however this time he only was positive for cannabis. This hospitalization was started on the same day that he absconded early in the morning of 07/31/2024 as he was able to break out the top window pain in his room which is rather large and climbed out and ran from the facility. He returned with a fairly laissez-faire attitude about what had happened stating that he had voices and thoughts that he should get out. He was restarted on a 96-hour hold which was eventually transition to a 21-day hold. During that time his Invega was restarted but without problems and Invega Sustenna was administered at 234 mg IM and then 156 mg IM 4 days later with the actual date that the second shot was due would have been 08/13/2024. His next injection will be 09/11/2024. And then as directed. He had a positive response to absence of drugs of abuse, having his medications restarted and the treatment milieu. He had significant improvement during the stay and he was able to contract for safety, outside the hospital prior to discharge. During the hospitalization, the patient had routine laboratory studies which were within normal limits except for a few outliers. Additionally, there was a general medical evaluation which was also within normal limits and revealed no new acute processes. Hospital Course At the time of discharge, he denied psychosis or lethality, and psychosis was resolving. Mood and anxiety were well managed. The patient endorsed a plan to avoid all drugs of abuse and follow up with the aftercare recommendations of the treatment team. The patient was evaluated and deemed to be absent credible lethality and had achieved the maximum benefit from an inpatient hospitalization, and so was discharged. Involuntary Hold Information Hold Status: Legal Status: 21 Day Hold Date/Time Hold Expires: 08/31/2024 96 Hour Hold: 96 Hour Involuntary Admission: Yes Other Hold: Hold End Date: 02/05/24 Mental Status Exam MSE Comments: This is an overweight versus obese white male in hospital scrubs with limited grooming and eye contact. No abnormal movements except for psychomotor retardation. Cooperative with exam in mild to distress. Speech was decreased rate and volume. Mood described as better/ready, affect mostly subdued. Thought process organized. Thought content: Patient denied suicidal or homicidal ideation, he denied paranoia and no delusional content was noted, he denied auditory or visual hallucinations. Attention and concentration were intact and memory appeared somewhat reliable but none were formally tested. He is alert and oriented x3. Attention and concentration were limited, but improving, impulse control is improving. Discharge Data Studies Completed and Pending: Laboratory Results WBC 6.91 10^3/uL (3.2 9-11.43) 08/01/24 08:31 RBC 5.70 10^6/uL (3.8 5-5.65) H 08/01/24 08:31 Hgb 16.20 g/dL (11.27 -16.99) 08/01/24 08:31 Hct 49.4 % (37-53) 08/01/24 08:31 MCV 86.7 fl (82-101) 08/01/24 08:31 MCH 28.4 pg (27-33) 08/01/24 08:31 MCHC 32.8 g/dL (30-55) 08/01/24 08:31 RDW 13.1 % (12.1-15.1 ) 08/01/24 08:31 Plt Count 223 10^3/cmm (157 -399) 08/01/24 08:31 MPV 10.9 fL (7.4-10.4 ) H 08/01/24 08:31 Neut % (Auto) 51.4 % 08/01/24 08:31 Lymph % (Auto) 39.1 % 08/01/24 08:31 [place] % (Auto) 6.4 % 08/01/24 08:31 Eos % (Auto) 2.5 % 08/01/24 08:31 Baso % (Auto) 0.3 % 08/01/24 08:31 Neut # (Auto) 3.56 10^3/uL (1.8 -7.7) 08/01/24 08:31 Lymph # (Auto) 2.7 10^3/uL (0.8- 4.8) 08/01/24 08:31 [place] # (Auto) 0.4 10^3/uL (0.2- 0.9) 08/01/24 08:31 Eos # (Auto) 0.2 10^3/uL (0.0- 0.8) 08/01/24 08:31 Baso # (Auto) 0.0 10^3/uL (0.0- 0.1) 08/01/24 08:31 Nucleated RBC % (a uto) 0 % 08/01/24 08: Nucleated RBCs # 0.0 /100WBC 08/01/24 08:31 Sodium 142 mmol/L (136-1 45) 08/01/24 08: Potassium 4.3 mmol/L (3.5-5 .1) 08/01/24 08: Chloride 104 mmol/L (98-10 7) 08/01/24 08: Carbon Dioxide 24 mmol/L (22-29) 08/01/24 08:31 Anion Gap 18.3 (5-19) 08/01/24 08:31 BUN 15 mg/dL (6-20) 08/01/24 08: Creatinine 0.8 mg/dL (0.7-1. 2) 08/01/24 08:31 GFR Calculation 115.1 mL/min (90- 130) 08/01/24 08: Glucose 101 mg/dL (65-115 ) 08/01/24 08:31 Calculated Osmolal ity 295 mOsm/kg (285- 295) 08/01/24 08: Calcium 10.0 mg/dL (8.5-1 0.5) 08/01/24 08:31 Total Bilirubin 0.8 mg/dL (0.15-1 .2) 08/01/24 08:31 AST 26 U/L (0-40) 08/01/24 08:31 ALT 19 U/L (0-41) 08/01/24 08:31 Alkaline Phosphata se 68 U/L (40-130) 08/01/24 08: Total Protein 8.1 g/dL (6.6-8.7 ) 08/01/24 08:31 Albumin 4.8 g/dL (3.5-5.2 ) 08/01/24 08:31 Globulin 3.3 g/dL (1.3-4.6 ) 08/01/24 08:31 Vitals: Last Vital Signs Temp 98.1 F 08/12/24 06:00 Pulse 85 08/12/24 06:00 Resp 17 08/12/24 06:00 BP 119/71 08/12/24 06:00 Pulse Ox 94 08/12/24 06:00 O2 Del Method Room Air 08/12/24 06:00 Discharge Plan Discharge Patient Disposition: Home Condition: Stable Prescriptions: New paliperidone 6 mg Tablet Extended Release 24hr 6 mg PO DAILY 10 Days Qty: 10 0RF Continued trazodone 50 mg Tablet 50 mg PO BEDTIME PRN (Reason: Sleep) 30 Days Qty: 30 1RF hydroxyzine pamoate 25 mg Capsule 50 mg PO Q6H PRN (Reason: Anxiety) 30 Days Qty: 120 1RF Invega Sustenna 156 mg/mL syringe 156 mg IM Q30D Qty: 1 1RF Rx Instructions: Next injection due 09/11/2024 then as directed. Discharge Orders: Discharge Order (Routine); Ordered 08/12/24 Ordered By: Davin Mcgovern Referrals: [facility] [Outside] - 08/18/24 7:30 am Referral Note: Initial assessment with Rodrigo Bowen. Ankur Mccurdy MD [Primary Care Provider, [facility]] Discharge Diet: Regular Discharge Activity: Resume usual activity Patient Instructions: Paliperidone (By mouth), Schizophrenia (DC), Psychotic Disorder (GEN), Opioid Safety, Pain Management Discharge Attestations [facility] Time Spent in Discharge Care*: less than 30 min Specific Discharge Activities: Specific discharge activities: educating patient, discussing with shelter case manager/social workers/dc planners, documenting/other paperwork and evaluating patient/reviewing data Status at Discharge: Cognitive status at discharge: cognitively intact , Behavioral status at discharge: cooperative , Coding Level of Care Code Acute Code for g Fwd Diagnoses Borderline personality disorder F60.3 Cannabis use disorder, severe, dependence F12.20 Suicidal ideation R45.851 Alcohol intoxication F10.929 Acute psychosis F23 Schizophrenia F20.9 Hallucinations R44.3 Marijuana abuse F12.10
[2024-08-12 13:35] VITALS: BP 119/71; PULSE 85; RESP 17; TEMP 36.7; O2SAT 94
== END 2024-08-12 15:13 | disposition home or self-care (01) | DRG 885 ==
LOC: ER 08:34 → NP 10:58
PROVIDERS: Admitting Provider Psychiatry & Neurology Psychiatry; Emergency Provider Family Medicine; PCP Family Medicine; Visit Provider Psychiatry & Neurology Psychiatry
DX: F20.9 Schizophrenia, unspecified (principal); R45.851 Suicidal ideations; F60.3 Borderline personality disorder; F12.20 Cannabis dependence, uncomplicated; E66.9 Obesity, unspecified; Z68.35 Body mass index [BMI] 35.0-35.9, adult; F10.10 Alcohol abuse, uncomplicated; F17.290 Nicotine dependence, other tobacco product, uncomplicated
CPT/HCPCS: 80053; 85025; 96372; 97150; 97165; 99285; J9999

== ENCOUNTER → 2024-09-02 11:18 | Outpatient (BNVA) | payer MEDICAID, SELFPAY | PROVIDERS: PCP Family Medicine; Visit Provider Psychiatry & Neurology Psychiatry | DX: F60.3 Borderline personality disorder (principal); F20.9 Schizophrenia, unspecified; Z79.899 Other long term (current) drug therapy | CPT/HCPCS: 80061; 83036 ==